=== PATIENT | male | born 1985 | race Two or more races ===

== ENCOUNTER 2016-08-10 13:49 | Inpatient (IN) | payer OTHER ==
[2016-08-10 15:51] VITALS: BMI 24.3
[2016-08-10] MEDS ORDERED: IBUPROFEN 400 MG TABLET (FP) PO PRN (17:34)
[2016-08-10] MEDS ORDERED: MAG HYDROX/AL HYDROX/SIMETH 30 ML UNIT-DOSE CUP PO PRN (17:34)
[2016-08-10] MEDS ORDERED: LOPERAMIDE HCL 2 MG CAPSULE PO PRN (17:34)
[2016-08-10] MEDS ORDERED: P-EPHED 60MG/TRIPROLIDI 2.5MG TABLET PO PRN (17:34)
[2016-08-10] MEDS ORDERED: guaiFENesin/D-METHORPHAN HB 10 ML UNIT-DOSE CUPS PO PRN (17:34)
[2016-08-10] MEDS ORDERED: chlordiazePOXIDE HCL 25 MG CAPSULE PO PRN (17:34)
[2016-08-10] MEDS ORDERED: NICOTINE POLACRILEX 2 MG GUM BUC PRN (17:34)
[2016-08-10] MEDS ORDERED: MAGNESIUM HYDROX 2400MG/30ML ORAL SUSPENSION 30 ML CUP PO PRN (17:34)
[2016-08-10] MEDS ORDERED: MENTHOL/PHENOL 1 EACH UD MM PRN (17:34)
[2016-08-10] MEDS ORDERED: MAGNESIUM CITRATE 300 ML BOTTLE PO PRN (17:34)
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
[2016-08-10] MEDS ORDERED: ALBUTEROL SO4 2.5/IPRATROPIUM 0.5 INH SOL 3 ML VIAL.NEB. NEB PRN (17:46)
[2016-08-10] MEDS ORDERED: ONDANSETRON *ODT* 4 MG TABLET SL PRN (18:35)
--- NOTE | 2016-08-10 20:42 | PN ---
S Progress Note Note: received pharmacy call tegretol 200 mg bid been ordered consider seizure management at home lab pending continue detox
[2016-08-10] MEDS: BUPRENORPHINE/NALOXONE 8 MG/2 MG FILM PACKET SL SCH (22:39)
[2016-08-10] MEDS: THIAMINE HCL 100 MG TABLET (FP) PO SCH (22:40)
[2016-08-10] MEDS: chlordiazePOXIDE HCL 25 MG CAPSULE PO SCH (22:40)
[2016-08-10] MEDS: RANITIDINE HCL 150 MG TABLET (FP) PO SCH (22:40)
[2016-08-10] MEDS ORDERED: ALBUTEROL SO4 6.7 GM HFA INHALER IH ONE (22:44)
[2016-08-10] MEDS: BUDESONIDE/FORMETEROL FUMARATE 80/4.5 mcg INHALER IH SCH (22:49)
[2016-08-10] MEDS: INSULIN SLIDING SCALE (NOVOLOG) 1 VIAL SQ SCH (22:58)
[2016-08-10 23:36] LABS: URINE APPEARANCE CLEAR; URINE BILIRUBIN NEGATIVE (NEGATIVE); URINE BLOOD NEGATIVE (NEGATIVE); URINE COLOR COLORLESS; URINE GLUCOSE (UA) NEGATIVE (NEGATIVE); URINE KETONE NEGATIVE (NEGATIVE); URINE LEUK ESTERASE NEGATIVE (NEGATIVE); URINE NITRITE NEGATIVE (NEGATIVE); URINE PROTEIN NEGATIVE (NEGATIVE); URINE UROBILINOGEN NEGATIVE E.U./dl (0.2-1.0)
[2016-08-10] MEDS: carBAMazepine 200 MG TABLET PO SCH (23:50)
[2016-08-11] MEDS: chlordiazePOXIDE HCL 25 MG CAPSULE PO SCH ×4 (05:23→22:30)
[2016-08-11] MEDS: BUPRENORPHINE/NALOXONE 8 MG/2 MG FILM PACKET SL SCH ×3 (05:24→22:28)
[2016-08-11] MEDS: INSULIN SLIDING SCALE (NOVOLOG) 1 VIAL SQ SCH ×4 (07:10→22:47)
[2016-08-11 09:13] LABS: MCH 32.2 pg (25.7-33.7); MCHC 33.4 g/dl (32.0-35.9); MEAN CELL VOLUME 96.7 fl (80-96); PLATELET COUNT 239 K/MM3 (134-434); RDW 15.2 % (11.9-15.9); WHITE BLOOD COUNT 7.4 K/mm3 (4.0-10.0)
[2016-08-11 09:30] LABS: ALBUMIN 3.3 g/dl (3.4-5.0); ALK PHOS 69 U/L (45-117); ANION GAP 8 (8-16); BILIRUBIN,TOTAL 0.2 mg/dL (0.2-1.0); CALCIUM 8.7 mg/dL (8.5-10.1); CO2 28 mmol/L (21-32); CREATININE 0.9 mg/dL (0.7-1.3); GLUCOSE,RANDOM 80 mg/dL (74-106); SGOT/AST 15 U/L (15-37); SGPT/ALT 20 U/L (12-78); TOT PROT 6.5 g/dl (6.4-8.2)
[2016-08-11 10:39] LABS: HIV 1 & 2 AB NEGATIVE; HIV 1 AGp24 NEGATIVE
--- NOTE | 2016-08-11 11:00 | PN ---
[facility] CIWA - CIWA Score Nausea/Vomitin Muscle Tremors: 3 Anxiety: 3 Agitation: 2 Paroxysmal Sweats: 1-Minimal Palms Moist Orientation: 0-Oriented Tacttile Disturbances: 1-Very Mild Itch/Numbness Auditory Disturbances: 1-Very Mild Visual Disturbances: 1-Very Mild Sensitivity Headache: 2-Mild CIWA-Ar Total Score: 17 BHS Progress Note (SOAP) Subjective: ALERT,IRRITABLE,ANXIOUS,INTERRUPTED SLEEP,TREMOR Objective: 08/11/16 10:55 Vital Signs Temperature 98.2 F 08/11/16 06:00 Pulse Rate 84 08/11/16 06:00 Respiratory Rate 18 08/11/16 06:00 Blood Pressure 102/57 08/11/16 06:00 O2 Sat by Pulse Oximetry (%) EKG INVERTED T IN V4 NO CHEST PAIN,NO SOB,NO DIZZINESS Laboratory Last Values WBC 7.4 K/mm3 (4.0-10.0) 08/11/16 07:45 RBC 4.17 M/mm3 (4.00-5.60) 08/11/16 07:45 Hgb 13.5 GM/dL (11.7-16.9) 08/11/16 07:45 Hct 40.3 % (35.4-49) 08/11/16 07:45 MCV 96.7 fl (80-96) H 08/11/16 07:45 MCHC 33.4 g/dl (32.0-35.9) 08/11/16 07:45 RDW 15.2 % (11.9-15.9) 08/11/16 07:45 Plt Count 239 K/MM3 (134-434) 08/11/16 07:45 MPV 9.0 fl (7.5-11.1) D 08/11/16 07:45 Sodium 141 mmol/L (136-145) 08/11/16 07:45 Potassium 4.1 mmol/L (3.5-5.1) 08/11/16 07:45 Chloride 105 mmol/L (98-107) 08/11/16 07:45 Carbon Dioxide 28 mmol/L (21-32) 08/11/16 07:45 Anion Gap 8 (8-16) 08/11/16 07:45 BUN 5 mg/dL (7-18) L D 08/11/16 07:45 Creatinine 0.9 mg/dL (0.7-1.3) 08/11/16 07:45 Creat Clearance w eGFR > 60 (>60) 08/11/16 07:45 POC Glucometer 89 UNITS (()) 08/11/16 05:23 Random Glucose 80 mg/dL (74-106) 08/11/16 07:45 Calcium 8.7 mg/dL (8.5-10.1) 08/11/16 07:45 Total Bilirubin 0.2 mg/dL (0.2-1.0) D 08/11/16 07:45 AST 15 U/L (15-37) 08/11/16 07:45 ALT 20 U/L (12-78) 08/11/16 07:45 Alkaline Phosphatase 69 U/L (45-117) 08/11/16 07:45 Total Protein 6.5 g/dl (6.4-8.2) 08/11/16 07:45 Albumin 3.3 g/dl (3.4-5.0) L 08/11/16 07:45 Urine Color Colorless 08/10/16 21:58 Urine Appearance Clear 08/10/16 21:58 Urine pH 6.0 (5.0-8.0) 08/10/16 21:58 Ur Specific [place] 1.002 (1.001-1.035) 08/10/16 21:58 Urine Protein Negative (NEGATIVE) 08/10/16 21:58 Urine Glucose (UA) Negative (NEGATIVE) 08/10/16 21:58 Urine Ketones Negative (NEGATIVE) 08/10/16 21:58 Urine Blood Negative (NEGATIVE) 08/10/16 21:58 Urine Nitrite Negative (NEGATIVE) 08/10/16 21:58 Urine Bilirubin Negative (NEGATIVE) 08/10/16 21:58 Urine Urobilinogen Negative E.U./dl (0.2-1.0) 08/10/16 21:58 Ur Leukocyte Esterase Negative (NEGATIVE) 08/10/16 21:58 Carbamazepine 6.8 ug/ml (4.0-12.0) 08/11/16 07:45 HIV 1&2 Antibody Screen Negative 08/11/16 07:45 HIV P24 Antigen Negative 08/11/16 07:45 08/11/16 10:58 Assessment: 08/11/16 10:57 08/11/16 10:58 WITHDRAWAL SYMPTOM Plan: CONTINUE DETOX,BGM IS 89,BGM MONITORING
--- NOTE | 2016-08-11 11:03 | PN ---
BHS Progress Note Note: EKG SINUS TACHYCARDIA 103/MIN,INVERTED T IN V4,NO CHEST PAIN,NO SOB,NO DIZZINESS , CONTINUE DETOX AND MONITORING
[2016-08-11] MEDS: PRENATAL VITAMINS W/ FOLIC ACID TABLET (FP) PO SCH ×2 (11:41→12:13)
[2016-08-11] MEDS: NICOTINE 21 MG/24 HOURS TOPICAL PATCH TD SCH (11:41)
[2016-08-11] MEDS: RANITIDINE HCL 150 MG TABLET (FP) PO SCH ×2 (12:02→22:28)
[2016-08-11] MEDS: NAPROXEN 500 MG TABLET (FP) PO PRN ×2 (12:02→22:28)
[2016-08-11] MEDS: carBAMazepine 200 MG TABLET PO SCH ×2 (12:02→22:28)
[2016-08-11] MEDS: ALBUTEROL SO4 6.7 GM HFA INHALER IH PRN (12:07)
--- NOTE | 2016-08-11 12:33 | CONSULT ---
[facility] Psychiatric Consult - Data Date of interview: 08/11/16 Admission source: [facility] Identifying data: Readmission to [facility] for this 30 y/o AA male seeking detox treatment on for alcohol and marijuana dependence.Patient is single without children,homeless,unemployed and supported on food stamps. Substance Abuse History: - Smoking Cessation. Smoking history: Current every day smoker. Have you smoked in the past 12 months: Yes. Aproximately how many cigarettes per day: 30. Cigars Per Day: 0. Hx Chewing Tobacco Use: No. Initiated information on smoking cessation: Yes. 'Breaking Loose' booklet given : 08/10/16. - Substance & Tx. History. Hx Alcohol Use: Yes. Hx Substance Use : Yes. Substance Use Type: Alcohol, Marijuana. Hx Substance Use Treatment: Yes. - Substances Abused. Alcohol. Route: Oral. Frequency: Daily. Amount used: 2 pints volka. Age of first use: 18. Date of Last Use: 08/10/16 Medical History: Significant for diabetes mellitus,GERD,bronchial asthma, seizure disorder (on carbamazepine) and hypertension.Noted history of craniotomy (head trauma in 2008). Psychiatric History: Patient reports a history of multiple psychiatric hospitalizations.Mr Stafford is known to [facility] and [facility].He states that he is diagnosed with " bipolar disorder and schizophrenia ".Medications :prozac and ambien,as per self- report.Patient does not recall the doses (request made to continue these medications during this hospital course).No OPD care for several weeks.Remote history of suicide attempt (age 21). Physical/Sexual Abuse/Trauma History: Patient denies. Mental Status Exam - Mental Status Exam Alert and Oriented to: Time, Place, Person Cognitive Function: Good Patient Appearance: Unkempt, Disheveled Mood: Nervous, Withdrawn Affect: Constricted Patient Behavior: Sedated, Fatigued, Cooperative Speech Pattern: Delayed Voice Loudness: Moderately Soft/Quiet Thought Process: Goal Oriented Thought Disorder: Not Present Hallucinations: Denies Suicidal Ideation: Denies Homicidal Ideation: Denies Insight/Judgement: Poor Sleep: Fair Appetite: Good Muscle strength/Tone: Normal Psychiatric Findings - Problem List ([place] 1, 2,3) (1) Alcohol dependence with uncomplicated withdrawal Current Visit: Yes Status: Acute (2) Nicotine dependence Current Visit: Yes Status: Acute Qualifiers: Nicotine product type: cigarettes Substance use status: in withdrawal Qualified Code(s): F17.213 - Nicotine dependence, cigarettes, with withdrawal (3) Cannabis dependence Current Visit: Yes Status: Acute (4) Drug-induced mood disorder Current Visit: Yes Status: Acute (5) Asthma Current Visit: Yes Status: Chronic Qualifiers: Asthma severity: mild intermittent Asthma complication type: with status asthmaticus Qualified Code(s): J45.22 - Mild intermittent asthma with status asthmaticus (6) Diabetes mellitus type II, controlled Current Visit: Yes Status: Chronic Qualifiers: Diabetes mellitus complication status: without complication Diabetes mellitus fci insulin use: with meterman use Qualified Code(s): E11.9 - Type 2 diabetes mellitus without complications Comment: patient dose not know the name of the insulin and oral medication (7) GERD (gastroesophageal reflux disease) Current Visit: Yes Status: Chronic Qualifiers: Esophagitis presence: without esophagitis Qualified Code(s): K21.9 - Gastro-esophageal reflux disease without esophagitis (8) Hypertension Current Visit: Yes Status: Chronic Qualifiers: Hypertension type: essential hypertension Qualified Code(s): I10 - Essential (primary) hypertension Comment: unknown medication (9) Seizure Current Visit: Yes Status: Chronic Comment: tegretol level pending - Initial Treatment Plan Initial Treatment Plan: Psychoeducation.Detoxification.Medications :prozac 20 mg po daily + zolpidem 5 mg po hs prn.Side effects/benefits discussed with the patient.He agrees with this careplan.Seizures precautions.Pharmacy claims are reviewed (script for prozac on 05/2016 @ [facility]).
[2016-08-11] MEDS: BUDESONIDE/FORMETEROL FUMARATE 80/4.5 mcg INHALER IH SCH ×2 (14:31→22:27)
[2016-08-11] MEDS: THIAMINE HCL 100 MG TABLET (FP) PO SCH (22:28)
[2016-08-11] MEDS: ZOLPIDEM TARTRATE 5 MG TABLET PO PRN (22:28)
[2016-08-12] MEDS: ACETAMINOPHEN 325 MG TABLET (FP) PO PRN ×2 (02:17→22:31)
[2016-08-12] MEDS: diphenhydrAMINE HCL 50 MG CAPSULE PO PRN (02:17)
[2016-08-12] MEDS: chlordiazePOXIDE HCL 25 MG CAPSULE PO SCH ×3 (05:50→17:55)
[2016-08-12] MEDS: BUPRENORPHINE/NALOXONE 8 MG/2 MG FILM PACKET SL SCH ×3 (06:45→22:27)
[2016-08-12] MEDS: INSULIN SLIDING SCALE (NOVOLOG) 1 VIAL SQ SCH ×4 (07:42→22:26)
[2016-08-12] MEDS: NAPROXEN 500 MG TABLET (FP) PO PRN ×2 (10:41→22:33)
[2016-08-12] MEDS: FLUoxetine HCL 20 MG CAPSULE (FP) PO SCH (10:41)
[2016-08-12] MEDS: RANITIDINE HCL 150 MG TABLET (FP) PO SCH ×2 (10:41→22:29)
[2016-08-12] MEDS: PRENATAL VITAMINS W/ FOLIC ACID TABLET (FP) PO SCH (10:41)
[2016-08-12] MEDS ORDERED: BUPRENORPHINE/NALOXONE 8 MG/2 MG FILM PACKET SL ONE (11:00)
--- NOTE | 2016-08-12 11:50 | PN ---
S CIWA - CIWA Score Nausea/Vomitin Muscle Tremors: 3 Anxiety: 3 Agitation: 2 Paroxysmal Sweats: 1-Minimal Palms Moist Orientation: 0-Oriented Tacttile Disturbances: 1-Very Mild Itch/Numbness Auditory Disturbances: 1-Very Mild Visual Disturbances: 1-Very Mild Sensitivity Headache: 2-Mild CIWA-Ar Total Score: 17 BHS Progress Note (SOAP) Subjective: ALERT,IRRITABLE,ANXIOUS,INTERRUPTED SLEEP,TREMOR Objective: 08/12/16 11:48 Vital Signs Temperature 98.6 F 08/12/16 10:01 Pulse Rate 89 08/12/16 10:01 Respiratory Rate 16 08/12/16 10:01 Blood Pressure 131/85 08/12/16 10:01 O2 Sat by Pulse Oximetry (%) Laboratory Last Values WBC 7.4 K/mm3 (4.0-10.0) 08/11/16 07:45 RBC 4.17 M/mm3 (4.00-5.60) 08/11/16 07:45 Hgb 13.5 GM/dL (11.7-16.9) 08/11/16 07:45 Hct 40.3 % (35.4-49) 08/11/16 07:45 MCV 96.7 fl (80-96) H 08/11/16 07:45 MCHC 33.4 g/dl (32.0-35.9) 08/11/16 07:45 RDW 15.2 % (11.9-15.9) 08/11/16 07:45 Plt Count 239 K/MM3 (134-434) 08/11/16 07:45 MPV 9.0 fl (7.5-11.1) D 08/11/16 07:45 Sodium 141 mmol/L (136-145) 08/11/16 07:45 Potassium 4.1 mmol/L (3.5-5.1) 08/11/16 07:45 Chloride 105 mmol/L (98-107) 08/11/16 07:45 Carbon Dioxide 28 mmol/L (21-32) 08/11/16 07:45 Anion Gap 8 (8-16) 08/11/16 07:45 BUN 5 mg/dL (7-18) L D 08/11/16 07:45 Creatinine 0.9 mg/dL (0.7-1.3) 08/11/16 07:45 Creat Clearance w eGFR > 60 (>60) 08/11/16 07:45 POC Glucometer 99 UNITS (()) 08/12/16 05:59 Random Glucose 80 mg/dL (74-106) 08/11/16 07:45 Calcium 8.7 mg/dL (8.5-10.1) 08/11/16 07:45 Total Bilirubin 0.2 mg/dL (0.2-1.0) D 08/11/16 07:45 AST 15 U/L (15-37) 08/11/16 07:45 ALT 20 U/L (12-78) 08/11/16 07:45 Alkaline Phosphatase 69 U/L (45-117) 08/11/16 07:45 Total Protein 6.5 g/dl (6.4-8.2) 08/11/16 07:45 Albumin 3.3 g/dl (3.4-5.0) L 08/11/16 07:45 Urine Color Colorless 08/10/16 21:58 Urine Appearance Clear 08/10/16 21:58 Urine pH 6.0 (5.0-8.0) 08/10/16 21:58 Ur Specific [place] 1.002 (1.001-1.035) 08/10/16 21:58 Urine Protein Negative (NEGATIVE) 08/10/16 21:58 Urine Glucose (UA) Negative (NEGATIVE) 08/10/16 21:58 Urine Ketones Negative (NEGATIVE) 08/10/16 21:58 Urine Blood Negative (NEGATIVE) 08/10/16 21:58 Urine Nitrite Negative (NEGATIVE) 08/10/16 21:58 Urine Bilirubin Negative (NEGATIVE) 08/10/16 21:58 Urine Urobilinogen Negative E.U./dl (0.2-1.0) 08/10/16 21:58 Ur Leukocyte Esterase Negative (NEGATIVE) 08/10/16 21:58 Carbamazepine 6.8 ug/ml (4.0-12.0) 08/11/16 07:45 RPR Titer Nonreactive (NONREACTIVE) 08/11/16 07:45 HIV 1&2 Antibody Screen Negative 08/11/16 07:45 HIV P24 Antigen Negative 08/11/16 07:45 Assessment: 08/12/16 11:49 WITHDRAWAL SYMPTOM Plan: CONTINUE DETOX
[2016-08-12] MEDS: NICOTINE 21 MG/24 HOURS TOPICAL PATCH TD SCH (11:53)
[2016-08-12] MEDS: carBAMazepine 200 MG TABLET PO SCH ×2 (11:54→22:29)
[2016-08-12] MEDS: BUDESONIDE/FORMETEROL FUMARATE 80/4.5 mcg INHALER IH SCH ×2 (11:54→22:29)
[2016-08-12] MEDS: THIAMINE HCL 100 MG TABLET (FP) PO SCH (22:29)
[2016-08-12] MEDS: ZOLPIDEM TARTRATE 5 MG TABLET PO PRN (22:33)
[2016-08-12] MEDS: chlordiazePOXIDE 5 MG CAPSULE PO SCH (23:34)
[2016-08-13] MEDS: diphenhydrAMINE HCL 50 MG CAPSULE PO PRN (02:32)
[2016-08-13] MEDS: BUPRENORPHINE/NALOXONE 8 MG/2 MG FILM PACKET SL SCH ×3 (05:48→22:45)
[2016-08-13] MEDS: chlordiazePOXIDE 5 MG CAPSULE PO SCH ×3 (05:50→17:55)
[2016-08-13] MEDS: INSULIN SLIDING SCALE (NOVOLOG) 1 VIAL SQ SCH ×4 (07:41→21:48)
[2016-08-13] MEDS: BUDESONIDE/FORMETEROL FUMARATE 80/4.5 mcg INHALER IH SCH ×2 (10:00→22:48)
[2016-08-13] MEDS: carBAMazepine 200 MG TABLET PO SCH ×2 (10:50→22:47)
[2016-08-13] MEDS: PRENATAL VITAMINS W/ FOLIC ACID TABLET (FP) PO SCH (10:50)
[2016-08-13] MEDS: NAPROXEN 500 MG TABLET (FP) PO PRN (10:50)
[2016-08-13] MEDS: RANITIDINE HCL 150 MG TABLET (FP) PO SCH ×2 (10:50→22:47)
[2016-08-13] MEDS: FLUoxetine HCL 20 MG CAPSULE (FP) PO SCH (10:50)
[2016-08-13] MEDS: NICOTINE 21 MG/24 HOURS TOPICAL PATCH TD SCH (10:51)
--- NOTE | 2016-08-13 11:13 | PN ---
S Progress Note (SOAP) Subjective: ALERT,IRRITABLE,ANXIOUS,INTERRUPTED SLEEP Objective: 08/13/16 11:11 Vital Signs Temperature 98.4 F 08/13/16 10:39 Pulse Rate 86 08/13/16 10:39 Respiratory Rate 18 08/13/16 10:39 Blood Pressure 135/71 08/13/16 10:39 O2 Sat by Pulse Oximetry (%) Assessment: 08/13/16 11:12 WITHDRAWAL SYMPTOM Plan: CONTINUE DETOX,DISCHARGE IN AM
[2016-08-13] MEDS: ALBUTEROL SO4 6.7 GM HFA INHALER IH PRN (17:50)
[2016-08-13] MEDS: ZOLPIDEM TARTRATE 5 MG TABLET PO PRN (22:47)
[2016-08-13] MEDS: THIAMINE HCL 100 MG TABLET (FP) PO SCH (22:48)
[2016-08-13] MEDS: chlordiazePOXIDE HCL 10 MG CAPSULE PO SCH (23:38)
[2016-08-14] MEDS: BUPRENORPHINE/NALOXONE 8 MG/2 MG FILM PACKET SL SCH (05:29)
[2016-08-14] MEDS: chlordiazePOXIDE HCL 10 MG CAPSULE PO SCH (06:06)
[2016-08-14] MEDS: INSULIN SLIDING SCALE (NOVOLOG) 1 VIAL SQ SCH (06:07)
[2016-08-14 06:41] VITALS: BP 128/67; PULSE 88; TEMP 99
--- NOTE | 2016-08-14 08:13 | PN ---
S Progress Note (SOAP) Subjective: ALERT,NO COMPLAINT Objective: 08/14/16 08:12 Vital Signs Temperature 99.0 F 08/14/16 06:00 Pulse Rate 88 08/14/16 06:00 Respiratory Rate 18 08/14/16 06:00 Blood Pressure 128/67 08/14/16 06:00 O2 Sat by Pulse Oximetry (%) 08/14/16 08:12 08/14/16 08:12 BGM 114 Assessment: 08/14/16 08:12 DETOX COMPLETED,NO WITHDRAWAL SYMPTOM Plan: DISCHARGE TODAY,FOLLOW UP WITH AFTER CARE PROGRAM ARRANGEMENT
[2016-08-14] MEDS ORDERED: ALBUTEROL SO4 6.7 GM HFA INHALER IH PRN (08:55)
--- NOTE | 2016-08-14 10:34 | DS ---
[facility] Detox Discharge Summary Admission Date: 08/10/16 Discharge Date: 08/14/16 - History Present History: Alcohol Dependence, Cannabis Dependence Additional Comments: FOLLOW UP WITH AFTER [facility] PROGRAM ARRANGEMENT AND PMD FOR MEDICAL PROBLEM Pertinent Past History: HYPERTENSION SEIZURE GERD ASTHMA - Physical Exam Results Vital Signs: Vital Signs Temperature 99.0 F 08/14/16 06:00 Pulse Rate 88 08/14/16 06:00 Respiratory Rate 18 08/14/16 06:00 Blood Pressure 128/67 08/14/16 06:00 O2 Sat by Pulse Oximetry (%) Pertinent Admission Physical Exam Findings: WITHDRAWAL SYMPTOM - Treatment Hospital Course: Detox Protocol Followed, Detoxed Safely, Responded well, Discharged Condition Good - Medication Discharge Medications: Ambulatory Orders Ibuprofen [Motrin -] 600 mg PO Q6H PRN 07/21/14 Buprenorphine/Naloxone [Suboxone 8Mg/2Mg Sl Film -] 1 each SL TID 08/10/16 Fluoxetine HCl [Prozac -] 20 mg PO DAILY #30 capsule 08/11/16 Albuterol Sulfate Inhaler - [Ventolin HFA Inhaler -] 2 puff IH Q4H PRN #1 inhaler 08/14/16 Carbamazepine [Tegretol -] 200 mg PO BID #60 tablet 08/14/16 Naproxen [Naprosyn -] 500 mg PO BID PRN #20 tablet 08/14/16 Ranitidine [Zantac -] 150 mg PO BID #60 tablet 08/14/16 - AMA Did Patient Leave Against Medical Advice: No
--- NOTE | 2016-08-14 14:10 | EKG ---
Test Reason : Blood Pressure : / mmHG Vent. Rate : 103 BPM Atrial Rate : 103 BPM P-R Int : 130 ms QRS Dur : 094 ms QT Int : 330 ms P-R-T Axes : 069 079 034 degrees QTc Int : [address] ELEVATION, CONSIDER EARLY REPOLARIZATION, PERICARDITIS, OR INJURY NONSPECIFIC T WAVE ABNORMALITY INFERIOR LEADS ABNORMAL ECG NO PREVIOUS ECGS AVAILABLE Confirmed by CHRISTAL CORONADO MD ([id number]) on 08/14/2016 2:10:00 PM Referred By: Confirmed By:CHRISTAL CORONADO MD
== END 2016-08-14 09:26 | disposition home or self-care (01) | DRG 774 ==
LOC: YASAS 13:49 → Y6N 20:19
PROVIDERS: ADMIT Internal Medicine Addiction Medicine; ATTEND Internal Medicine Addiction Medicine
PROC: HZ2ZZZZ Detoxification Services for Substance Abuse Treatment (ICD-10-PCS; principal; 2016-08-14)
DX: F10.230 Alcohol dependence with withdrawal, uncomplicated (principal); F14.20 Cocaine dependence, uncomplicated; F17.210 Nicotine dependence, cigarettes, uncomplicated; F19.24 Other psychoactive substance dependence with psychoactive substance-induced mood disorder; I10 Essential (primary) hypertension; E11.9 Type 2 diabetes mellitus without complications; Z79.4 Long term (current) use of insulin; Z79.84 Long term (current) use of oral hypoglycemic drugs; J45.22 Mild intermittent asthma with status asthmaticus; G40.909 Epilepsy, unspecified, not intractable, without status epilepticus; K21.9 Gastro-esophageal reflux disease without esophagitis
CPT/HCPCS: 36415; 80053; 80156; 81003; 85027; 86593; 87389; 93005; 93010

== ENCOUNTER 2016-09-02 10:54 | Inpatient (IN) | payer OTHER ==
[2016-09-02 11:52] VITALS: BMI 24.3
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
[2016-09-02] MEDS ORDERED: hydrOXYzine PAMOATE 50 MG CAPSULE (FP) PO PRN (12:20)
[2016-09-02] MEDS ORDERED: chlordiazePOXIDE HCL 25 MG CAPSULE PO PRN (12:20)
[2016-09-02] MEDS ORDERED: MAGNESIUM CITRATE 300 ML BOTTLE PO PRN (12:20)
[2016-09-02] MEDS ORDERED: MAGNESIUM HYDROX 2400MG/30ML ORAL SUSPENSION 30 ML CUP PO PRN (12:20)
[2016-09-02] MEDS ORDERED: LOPERAMIDE HCL 2 MG CAPSULE PO PRN (12:20)
[2016-09-02] MEDS ORDERED: MENTHOL/PHENOL 1 EACH UD MM PRN (12:20)
[2016-09-02] MEDS ORDERED: guaiFENesin/D-METHORPHAN HB 10 ML UNIT-DOSE CUPS PO PRN (12:20)
[2016-09-02] MEDS ORDERED: P-EPHED 60MG/TRIPROLIDI 2.5MG TABLET PO PRN (12:20)
[2016-09-02] MEDS ORDERED: NICOTINE POLACRILEX 4 MG GUM BUC PRN (12:20)
[2016-09-02] MEDS ORDERED: ACETAMINOPHEN 325 MG TABLET (FP) PO PRN (12:20)
[2016-09-02] MEDS ORDERED: chlordiazePOXIDE HCL 25 MG CAPSULE PO ONE (14:00)
[2016-09-02] MEDS: BUPRENORPHINE/NALOXONE 8 MG/2 MG FILM PACKET SL SCH ×2 (14:34→22:22)
[2016-09-02] MEDS: NAPROXEN 500 MG TABLET (FP) PO PRN (14:34)
[2016-09-02] MEDS: carBAMazepine 200 MG TABLET PO SCH ×2 (14:42→22:22)
[2016-09-02] MEDS: chlordiazePOXIDE HCL 25 MG CAPSULE PO SCH ×2 (17:16→22:22)
[2016-09-02 19:17] LABS: URINE APPEARANCE CLEAR; URINE BILIRUBIN NEGATIVE (NEGATIVE); URINE BLOOD 2+ (NEGATIVE); URINE COLOR LTYELLOW; URINE GLUCOSE (UA) NEGATIVE (NEGATIVE); URINE KETONE NEGATIVE (NEGATIVE); URINE LEUK ESTERASE NEGATIVE (NEGATIVE); URINE NITRITE NEGATIVE (NEGATIVE); URINE PROTEIN NEGATIVE (NEGATIVE); URINE UROBILINOGEN NEGATIVE E.U./dl (0.2-1.0)
[2016-09-02 19:52] LABS: URINE WBC 0-2 /hpf (3-5)
--- NOTE | 2016-09-02 20:58 | EKG ---
Test Reason : Blood Pressure : / mmHG Vent. Rate : 081 BPM Atrial Rate : 081 BPM P-R Int : 138 ms QRS Dur : 094 ms QT Int : 380 ms P-R-T Axes : -05 -22 011 degrees QTc Int : 441 ms NORMAL SINUS RHYTHM VOLTAGE CRITERIA FOR LEFT VENTRICULAR HYPERTROPHY ACUTE PERICARDITIS ABNORMAL ECG WHEN COMPARED WITH ECG OF 10-AUG-2016 21:42, QUESTIONABLE CHANGE IN QRS AXIS ST NO LONGER ELEVATED IN INFERIOR LEADS ST ELEVATION NOW PRESENT IN LATERAL LEADS NONSPECIFIC T WAVE ABNORMALITY, IMPROVED IN LATERAL LEADS Confirmed by CRISTOFER GOYAL MD ([id number]) on 09/02/2016 8:57:25 PM Referred By: Confirmed By:CRISTOFER GOYAL MD
[2016-09-02] MEDS: RANITIDINE HCL 150 MG TABLET (FP) PO SCH (22:22)
[2016-09-02] MEDS: diphenhydrAMINE HCL 50 MG CAPSULE PO PRN (22:22)
[2016-09-02] MEDS: THIAMINE HCL 100 MG TABLET (FP) PO SCH (22:22)
[2016-09-03] MEDS: BUPRENORPHINE/NALOXONE 8 MG/2 MG FILM PACKET SL SCH ×3 (06:22→22:34)
[2016-09-03] MEDS: chlordiazePOXIDE HCL 25 MG CAPSULE PO SCH ×4 (06:22→22:34)
[2016-09-03 10:22] LABS: MCH 32.1 pg (25.7-33.7); MCHC 33.2 g/dl (32.0-35.9); MEAN CELL VOLUME 96.7 fl (80-96); MEAN PLT VOLUME 9.2 fl (7.5-11.1); PLATELET COUNT 254 K/MM3 (134-434); RDW 15.3 % (11.9-15.9); WHITE BLOOD COUNT 5.7 K/mm3 (4.0-10.0)
[2016-09-03] MEDS: RANITIDINE HCL 150 MG TABLET (FP) PO SCH ×2 (10:29→22:34)
[2016-09-03] MEDS: NAPROXEN 500 MG TABLET (FP) PO PRN ×2 (10:29→22:38)
[2016-09-03] MEDS: PRENATAL VITAMINS W/ FOLIC ACID TABLET (FP) PO SCH (10:29)
[2016-09-03] MEDS: carBAMazepine 200 MG TABLET PO SCH ×2 (10:29→22:34)
[2016-09-03 10:33] LABS: ALBUMIN 3.7 g/dl (3.4-5.0); ANION GAP 6 (8-16); CALCIUM 8.8 mg/dL (8.5-10.1); CO2 32 mmol/L (21-32); GLUCOSE,RANDOM 91 mg/dL (74-106)
[2016-09-03 10:36] LABS: ALK PHOS 65 U/L (45-117); CREATININE 0.9 mg/dL (0.7-1.3); SGOT/AST 33 U/L (15-37); SGPT/ALT 40 U/L (12-78); TOT PROT 7.1 g/dl (6.4-8.2)
[2016-09-03] MEDS: NICOTINE 21 MG/24 HOURS TOPICAL PATCH TD SCH (11:56)
--- NOTE | 2016-09-03 15:10 | PN ---
S CIWA - CIWA Score Nausea/Vomitin Muscle Tremors: 4-Moderate,w/Arms Extend Anxiety: 4-Mod. Anxious/Guarded Agitation: 4-Moderately Restless Paroxysmal Sweats: No Perspiration Orientation: 0-Oriented Tacttile Disturbances: 1-Very Mild Itch/Numbness Auditory Disturbances: 0-None Visual Disturbances: 0-None Headache: 1-Very Mild CIWA-Ar Total Score: 17 BHS Progress Note (SOAP) Subjective: Nausea, tremor, chills, sweating, interrupted sleep Objective: 09/03/16 15:05 Last Vital Signs Temp Pulse Resp BP Pulse Ox 97.1 F L 80 20 139/83 09/03/16 13:20 09/03/16 13:20 09/03/16 13:20 09/03/16 13:20 Laboratory Tests 09/02/16 09/02/16 09/03/16 13:16 18:00 08:00 WBC 5.7 RBC 4.30 Hgb 13.8 Hct 41.5 MCV 96.7 H MCHC 33.2 RDW 15.3 Plt Count 254 MPV 9.2 Sodium Potassium Chloride Carbon Dioxide Anion Gap BUN Creatinine Creat Clearance w eGFR POC Glucometer 185 Random Glucose Calcium Total Bilirubin AST ALT Alkaline Phosphatase Total Protein Albumin Urine Color Ltyellow Urine Appearance Clear Urine pH 5.0 Ur Specific [place] 1.017 Urine Protein Negative Urine Glucose (UA) Negative Urine Ketones Negative Urine Blood 2+ H Urine Nitrite Negative Urine Bilirubin Negative Urine Urobilinogen Negative Ur Leukocyte Esterase Negative Urine RBC 6-9 Urine WBC 0-2 Ur Epithelial Cells occ Carbamazepine RPR Titer 09/03/16 09/03/16 09/03/16 08:00 08:00 08:00 WBC RBC Hgb Hct MCV MCHC RDW Plt Count MPV Sodium 136 Potassium 4.2 Chloride 98 Carbon Dioxide 32 Anion Gap 6 L BUN 7 D Creatinine 0.9 Creat Clearance w eGFR > 60 POC Glucometer Random Glucose 91 Calcium 8.8 Total Bilirubin 1.0 D AST 33 D ALT 40 D Alkaline Phosphatase 65 Total Protein 7.1 Albumin 3.7 Urine Color Urine Appearance Urine pH Ur Specific [place] Urine Protein Urine Glucose (UA) Urine Ketones Urine Blood Urine Nitrite Urine Bilirubin Urine Urobilinogen Ur Leukocyte Esterase Urine RBC Urine WBC Ur Epithelial Cells Carbamazepine 4.8 RPR Titer Nonreactive Labs noted: UA: 2+ blood, RBC 6-9 Assessment: 09/03/16 15:09 Withdrawal symptoms Noted with microscopic hematuria Plan: Continue detox Microscopic hematuria: encouraged to drink more water, repeat UA
[2016-09-03] MEDS ORDERED: ALBUTEROL SO4 6.7 GM HFA INHALER IH ONE (17:53)
[2016-09-03] MEDS: ALBUTEROL SO4 6.7 GM HFA INHALER IH PRN (17:54)
[2016-09-03] MEDS: THIAMINE HCL 100 MG TABLET (FP) PO SCH (22:33)
[2016-09-03] MEDS: diphenhydrAMINE HCL 50 MG CAPSULE PO PRN (22:38)
[2016-09-04] MEDS: BUPRENORPHINE/NALOXONE 8 MG/2 MG FILM PACKET SL SCH ×3 (05:46→22:35)
[2016-09-04] MEDS: chlordiazePOXIDE HCL 25 MG CAPSULE PO SCH ×2 (05:46→10:18)
[2016-09-04] MEDS: ALBUTEROL SO4 6.7 GM HFA INHALER IH PRN (06:00)
[2016-09-04 10:09] LABS: URINE APPEARANCE CLEAR; URINE BILIRUBIN NEGATIVE (NEGATIVE); URINE BLOOD NEGATIVE (NEGATIVE); URINE COLOR STRAW; URINE GLUCOSE (UA) NEGATIVE (NEGATIVE); URINE KETONE NEGATIVE (NEGATIVE); URINE NITRITE NEGATIVE (NEGATIVE); URINE PROTEIN NEGATIVE (NEGATIVE); URINE UROBILINOGEN NEGATIVE E.U./dl (0.2-1.0)
[2016-09-04] MEDS: RANITIDINE HCL 150 MG TABLET (FP) PO SCH ×2 (10:18→22:36)
[2016-09-04] MEDS: carBAMazepine 200 MG TABLET PO SCH ×2 (10:18→22:36)
[2016-09-04] MEDS: NICOTINE 21 MG/24 HOURS TOPICAL PATCH TD SCH (10:18)
[2016-09-04] MEDS: PRENATAL VITAMINS W/ FOLIC ACID TABLET (FP) PO SCH (10:18)
[2016-09-04 10:50] LABS: URINE LEUK ESTERASE 1+ (NEGATIVE)
[2016-09-04 10:56] LABS: URINE MUCUS RARE; URINE RBC 1 /hpf (0-3); URINE WBC 2 /hpf (3-5)
--- NOTE | 2016-09-04 11:43 | PN ---
[facility] CIWA - CIWA Score Nausea/Vomitin-Mild Nausea/No Vomiting Muscle Tremors: 4-Moderate,w/Arms Extend Anxiety: 4-Mod. Anxious/Guarded Agitation: 3 Paroxysmal Sweats: 3 Orientation: 0-Oriented Tacttile Disturbances: 0-None Auditory Disturbances: 0-None Visual Disturbances: 0-None Headache: 0-None Present CIWA-Ar Total Score: 15 S Progress Note (SOAP) Subjective: Anxiety,tremors,sweating,interrupted sleep,restless Objective: 09/04/16 11:42 Vital Signs - 8 hr 09/04/16 09/04/16 06:06 09:45 Temperature 96.2 F L 97.1 F L Pulse Rate 79 85 Respiratory 18 18 Rate Blood Pressure 139/90 140/82 Laboratory Tests 09/02/16 09/02/16 09/03/16 13:16 18:00 08:00 WBC 5.7 RBC 4.30 Hgb 13.8 Hct 41.5 MCV 96.7 H MCHC 33.2 RDW 15.3 Plt Count 254 MPV 9.2 Sodium Potassium Chloride Carbon Dioxide Anion Gap BUN Creatinine Creat Clearance w eGFR POC Glucometer 185 Random Glucose Calcium Total Bilirubin AST ALT Alkaline Phosphatase Total Protein Albumin Urine Color Ltyellow Urine Appearance Clear Urine pH 5.0 Ur Specific [place] 1.017 Urine Protein Negative Urine Glucose (UA) Negative Urine Ketones Negative Urine Blood 2+ H Urine Nitrite Negative Urine Bilirubin Negative Urine Urobilinogen Negative Ur Leukocyte Esterase Negative Urine RBC 6-9 Urine WBC 0-2 Ur Epithelial Cells occ Urine Mucus Carbamazepine RPR Titer 09/03/16 09/03/16 09/03/16 08:00 08:00 08:00 WBC RBC Hgb Hct MCV MCHC RDW Plt Count MPV Sodium 136 Potassium 4.2 Chloride 98 Carbon Dioxide 32 Anion Gap 6 L BUN 7 D Creatinine 0.9 Creat Clearance w eGFR > 60 POC Glucometer Random Glucose 91 Calcium 8.8 Total Bilirubin 1.0 D AST 33 D ALT 40 D Alkaline Phosphatase 65 Total Protein 7.1 Albumin 3.7 Urine Color Urine Appearance Urine pH Ur Specific [place] Urine Protein Urine Glucose (UA) Urine Ketones Urine Blood Urine Nitrite Urine Bilirubin Urine Urobilinogen Ur Leukocyte Esterase Urine RBC Urine WBC Ur Epithelial Cells Urine Mucus Carbamazepine 4.8 RPR Titer Nonreactive 09/04/16 07:50 WBC RBC Hgb Hct MCV MCHC RDW Plt Count MPV Sodium Potassium Chloride Carbon Dioxide Anion Gap BUN Creatinine Creat Clearance w eGFR POC Glucometer Random Glucose Calcium Total Bilirubin AST ALT Alkaline Phosphatase Total Protein Albumin Urine Color Straw Urine Appearance Clear Urine pH 6.0 Ur Specific [place] 1.008 Urine Protein Negative Urine Glucose (UA) Negative Urine Ketones Negative Urine Blood Negative Urine Nitrite Negative Urine Bilirubin Negative Urine Urobilinogen Negative Ur Leukocyte Esterase 1+ H Urine RBC 1 Urine WBC 2 Ur Epithelial Cells Urine Mucus Rare Carbamazepine RPR Titer labs noted Assessment: 09/04/16 11:43 Withdrawal sx. Plan: Continue detox
--- NOTE | 2016-09-04 13:24 | CONSULT ---
[facility] Psychiatric Consult - Data Date of interview: 09/04/16 Admission source: [facility] Identifying data: Another admission to [facility] for this 30 y/o AA male seeking detox treatment on for alcohol and marijuana dependence.Patient is single without children (in this interview,the patient presents himself as ),homeless,unemployed and supported on food stamps. Substance Abuse History: - Smoking Cessation. Smoking history: Current every day smoker. Have you smoked in the past 12 months: Yes. Aproximately how many cigarettes per day: 306. Cigars Per Day: 0. Hx Chewing Tobacco Use: No. Initiated information on smoking cessation: Yes. 'Breaking Loose' booklet given : 09/02/16 (give on floor). - Substance & Tx. History. Hx Alcohol Use: Yes. Hx Substance Use: Yes. Substance Use Type: Alcohol, Marijuana. Hx Substance Use Treatment: Yes (detox,rehab). - Substances Abused. Alcohol. Route: Oral. Frequency: Daily. Amount used: 2 pints vodka, six pack beer. Age of first use: 18. Date of Last Use: 09/02/16. Marijuana/Hashish. Route: Smoking. Frequency: Daily. Amount used: a pound a week. Age of first use: 16. Date of Last Use: 09/02/16. Patient confirms this pattern of substance abuse in this interview. Medical History: Diabetes mellitus,GERD,bronchial asthma,seizure disorder (on carbamazepine) and hypertension.Noted history of craniotomy (head trauma in 2008 ). Psychiatric History: Patient reports a history of multiple psychiatric hospitalizations.Mr Stafford is known to [facility] and [facility].He states that he is diagnosed with " bipolar disorder and schizophrenia ".Medications :prozac and ambien,as per self- report.Patient does not recall the doses (request made to continue these medications during this hospital course).No OPD care for several weeks.Remote history of suicide attempt (age 21). Physical/Sexual Abuse/Trauma History: No reported history of sexual abuse. Additional Comment: Urine Drug Screen Results: THC-Marijuana.Noted. Mental Status Exam - Mental Status Exam Alert and Oriented to: Time, Place, Person Cognitive Function: Good Patient Appearance: Well Groomed Mood: Nervous, Withdrawn, Anxious, Irritable Affect: Mood Congruent Patient Behavior: Fatigued, Guarded, Impulsive, Cooperative (superficially) Speech Pattern: Clear Voice Loudness: Normal Thought Process: Goal Oriented Thought Disorder: Not Present Hallucinations: Denies Suicidal Ideation: Denies Homicidal Ideation: Denies Insight/Judgement: Poor Sleep: Poorly, Difficulty falling asleep Appetite: Good Muscle strength/Tone: Normal Gait/Station: Normal Psychiatric Findings - Problem List ([place] 1, 2,3) (1) Alcohol dependence with uncomplicated withdrawal Current Visit: Yes Status: Acute (2) Cannabis dependence Current Visit: Yes Status: Chronic (3) Nicotine dependence Current Visit: Yes Status: Chronic Qualifiers: Nicotine product type: cigarettes Substance use status: in withdrawal Qualified Code(s): F17.213 - Nicotine dependence, cigarettes, with withdrawal (4) Drug-induced mood disorder Current Visit: Yes Status: Acute (5) Bipolar disorder Current Visit: Yes Status: Chronic (6) Asthma Current Visit: Yes Status: Chronic Qualifiers: Asthma severity: mild intermittent Asthma complication type: with status asthmaticus Qualified Code(s): J45.22 - Mild intermittent asthma with status asthmaticus (7) GERD (gastroesophageal reflux disease) Current Visit: Yes Status: Chronic Qualifiers: Esophagitis presence: esophagitis presence not specified Qualified Code(s): K21.9 - Gastro-esophageal reflux disease without esophagitis (8) Insomnia Current Visit: Yes Status: Chronic - Initial Treatment Plan Initial Treatment Plan: Psychoeducation.Detoxification.Medications searched via pharmacy claims.Noted filled scripts for trazodone 50 mg po hs + prozac 20 mg po daily + risperdal 2mg po bid on 08/26/15 @ [facility].Orders resumed.Side effects/benefits discussed with the patient.Made aware of the risk of priapism (trazodone) and advised to stop taking that drug/seek immediate medical attention if painful/prolonged erection.Patient agrees with this careplan.Observation.
[2016-09-04] MEDS: FLUoxetine HCL 20 MG CAPSULE (FP) PO SCH (14:41)
[2016-09-04] MEDS: NAPROXEN 500 MG TABLET (FP) PO PRN (17:13)
[2016-09-04] MEDS: chlordiazePOXIDE 5 MG CAPSULE PO SCH ×2 (17:13→22:36)
[2016-09-04] MEDS ORDERED: traZODone HCL 50 MG TABLET (FP) PO SCH (22:00)
[2016-09-04] MEDS: THIAMINE HCL 100 MG TABLET (FP) PO SCH (22:35)
[2016-09-04] MEDS: risperiDONE 2 MG TABLET PO SCH (22:36)
[2016-09-04] MEDS: diphenhydrAMINE HCL 50 MG CAPSULE PO PRN (22:41)
[2016-09-05] MEDS: chlordiazePOXIDE 5 MG CAPSULE PO SCH (05:43)
[2016-09-05] MEDS: BUPRENORPHINE/NALOXONE 8 MG/2 MG FILM PACKET SL SCH ×3 (05:44→22:37)
--- NOTE | 2016-09-05 10:20 | PN ---
BHS Progress Note (SOAP) Subjective: Sweating,interrupted sleep,restless Objective: 09/05/16 10:19 Vital Signs - 8 hr 09/05/16 09/05/16 09/05/16 03:27 06:07 09:49 Temperature 98.5 F 98 F Pulse Rate 123 H 106 H Respiratory 18 18 20 Rate Blood Pressure 136/80 129/60 Laboratory Tests 09/02/16 09/02/16 09/03/16 13:16 18:00 08:00 WBC 5.7 RBC 4.30 Hgb 13.8 Hct 41.5 MCV 96.7 H MCHC 33.2 RDW 15.3 Plt Count 254 MPV 9.2 Sodium Potassium Chloride Carbon Dioxide Anion Gap BUN Creatinine Creat Clearance w eGFR POC Glucometer 185 Random Glucose Calcium Total Bilirubin AST ALT Alkaline Phosphatase Total Protein Albumin Urine Color Ltyellow Urine Appearance Clear Urine pH 5.0 Ur Specific [place] 1.017 Urine Protein Negative Urine Glucose (UA) Negative Urine Ketones Negative Urine Blood 2+ H Urine Nitrite Negative Urine Bilirubin Negative Urine Urobilinogen Negative Ur Leukocyte Esterase Negative Urine RBC 6-9 Urine WBC 0-2 Ur Epithelial Cells occ Urine Mucus Carbamazepine RPR Titer 09/03/16 09/03/16 09/03/16 08:00 08:00 08:00 WBC RBC Hgb Hct MCV MCHC RDW Plt Count MPV Sodium 136 Potassium 4.2 Chloride 98 Carbon Dioxide 32 Anion Gap 6 L BUN 7 D Creatinine 0.9 Creat Clearance w eGFR > 60 POC Glucometer Random Glucose 91 Calcium 8.8 Total Bilirubin 1.0 D AST 33 D ALT 40 D Alkaline Phosphatase 65 Total Protein 7.1 Albumin 3.7 Urine Color Urine Appearance Urine pH Ur Specific [place] Urine Protein Urine Glucose (UA) Urine Ketones Urine Blood Urine Nitrite Urine Bilirubin Urine Urobilinogen Ur Leukocyte Esterase Urine RBC Urine WBC Ur Epithelial Cells Urine Mucus Carbamazepine 4.8 RPR Titer Nonreactive 09/04/16 07:50 WBC RBC Hgb Hct MCV MCHC RDW Plt Count MPV Sodium Potassium Chloride Carbon Dioxide Anion Gap BUN Creatinine Creat Clearance w eGFR POC Glucometer Random Glucose Calcium Total Bilirubin AST ALT Alkaline Phosphatase Total Protein Albumin Urine Color Straw Urine Appearance Clear Urine pH 6.0 Ur Specific [place] 1.008 Urine Protein Negative Urine Glucose (UA) Negative Urine Ketones Negative Urine Blood Negative Urine Nitrite Negative Urine Bilirubin Negative Urine Urobilinogen Negative Ur Leukocyte Esterase 1+ H Urine RBC 1 Urine WBC 2 Ur Epithelial Cells Urine Mucus Rare Carbamazepine RPR Titer labs noted Assessment: 09/05/16 10:20 Withdrawal sx. Plan: Continue detox
[2016-09-05] MEDS: carBAMazepine 200 MG TABLET PO SCH ×3 (10:41→22:38)
[2016-09-05] MEDS: FLUoxetine HCL 20 MG CAPSULE (FP) PO SCH (10:41)
[2016-09-05] MEDS: RANITIDINE HCL 150 MG TABLET (FP) PO SCH ×2 (10:41→22:38)
[2016-09-05] MEDS: NICOTINE 21 MG/24 HOURS TOPICAL PATCH TD SCH (10:41)
[2016-09-05] MEDS: risperiDONE 2 MG TABLET PO SCH ×2 (10:41→22:37)
[2016-09-05] MEDS: PRENATAL VITAMINS W/ FOLIC ACID TABLET (FP) PO SCH (10:41)
[2016-09-05] MEDS: chlordiazePOXIDE HCL 10 MG CAPSULE PO SCH ×2 (17:12→22:39)
[2016-09-05] MEDS: THIAMINE HCL 100 MG TABLET (FP) PO SCH (22:37)
[2016-09-05] MEDS: NAPROXEN 500 MG TABLET (FP) PO PRN (22:38)
--- NOTE | 2016-09-05 23:19 | PN ---
S Progress Note Note: received nurse call patient refuses librium 10 mg, less withdrawal sx continue detox
[2016-09-06] MEDS: chlordiazePOXIDE HCL 10 MG CAPSULE PO SCH ×2 (05:57→10:13)
[2016-09-06] MEDS: BUPRENORPHINE/NALOXONE 8 MG/2 MG FILM PACKET SL SCH ×2 (06:02→13:31)
[2016-09-06 09:20] VITALS: BP 154/99; PULSE 90; TEMP 96
[2016-09-06] MEDS: risperiDONE 2 MG TABLET PO SCH (10:13)
[2016-09-06] MEDS: PRENATAL VITAMINS W/ FOLIC ACID TABLET (FP) PO SCH (10:13)
[2016-09-06] MEDS: FLUoxetine HCL 20 MG CAPSULE (FP) PO SCH (10:13)
[2016-09-06] MEDS: carBAMazepine 200 MG TABLET PO SCH (10:13)
[2016-09-06] MEDS: RANITIDINE HCL 150 MG TABLET (FP) PO SCH (10:13)
[2016-09-06] MEDS: NICOTINE 21 MG/24 HOURS TOPICAL PATCH TD SCH (10:14)
--- NOTE | 2016-09-06 14:06 | DS ---
[facility] Detox Discharge Summary Admission Date: 09/02/16 Discharge Date: 09/06/16 - History Present History: Alcohol Dependence, Cocaine Dependence Pertinent Past History: Asthma GERD Seizure - Physical Exam Results Vital Signs: Vital Signs Temperature 96 F L 09/06/16 09:19 Pulse Rate 90 09/06/16 09:19 Respiratory Rate 18 09/06/16 09:19 Blood Pressure 154/99 09/06/16 09:19 O2 Sat by Pulse Oximetry (%) Pertinent Admission Physical Exam Findings: Withdrawal sx. Laboratory Last Values WBC 5.7 K/mm3 (4.0-10.0) 09/03/16 08:00 RBC 4.30 M/mm3 (4.00-5.60) 09/03/16 08:00 Hgb 13.8 GM/dL (11.7-16.9) 09/03/16 08:00 Hct 41.5 % (35.4-49) 09/03/16 08:00 MCV 96.7 fl (80-96) H 09/03/16 08:00 MCHC 33.2 g/dl (32.0-35.9) 09/03/16 08:00 RDW 15.3 % (11.9-15.9) 09/03/16 08:00 Plt Count 254 K/MM3 (134-434) 09/03/16 08:00 MPV 9.2 fl (7.5-11.1) 09/03/16 08:00 Sodium 136 mmol/L (136-145) 09/03/16 08:00 Potassium 4.2 mmol/L (3.5-5.1) 09/03/16 08:00 Chloride 98 mmol/L (98-107) 09/03/16 08:00 Carbon Dioxide 32 mmol/L (21-32) 09/03/16 08:00 Anion Gap 6 (8-16) L 09/03/16 08:00 BUN 7 mg/dL (7-18) D 09/03/16 08:00 Creatinine 0.9 mg/dL (0.7-1.3) 09/03/16 08:00 Creat Clearance w eGFR > 60 (>60) 09/03/16 08:00 POC Glucometer 185 UNITS (()) 09/02/16 13:16 Random Glucose 91 mg/dL (74-106) 09/03/16 08:00 Calcium 8.8 mg/dL (8.5-10.1) 09/03/16 08:00 Total Bilirubin 1.0 mg/dL (0.2-1.0) D 09/03/16 08:00 AST 33 U/L (15-37) D 09/03/16 08:00 ALT 40 U/L (12-78) D 09/03/16 08:00 Alkaline Phosphatase 65 U/L (45-117) 09/03/16 08:00 Total Protein 7.1 g/dl (6.4-8.2) 09/03/16 08:00 Albumin 3.7 g/dl (3.4-5.0) 09/03/16 08:00 Urine Color Straw 09/04/16 07:50 Urine Appearance Clear 09/04/16 07:50 Urine pH 6.0 (5.0-8.0) 09/04/16 07:50 Ur Specific [place] 1.008 (1.001-1.035) 09/04/16 07:50 Urine Protein Negative (NEGATIVE) 09/04/16 07:50 Urine Glucose (UA) Negative (NEGATIVE) 09/04/16 07:50 Urine Ketones Negative (NEGATIVE) 09/04/16 07:50 Urine Blood Negative (NEGATIVE) 09/04/16 07:50 Urine Nitrite Negative (NEGATIVE) 09/04/16 07:50 Urine Bilirubin Negative (NEGATIVE) 09/04/16 07:50 Urine Urobilinogen Negative E.U./dl (0.2-1.0) 09/04/16 07:50 Ur Leukocyte Esterase 1+ (NEGATIVE) H 09/04/16 07:50 Urine RBC 1 /hpf (0-3) 09/04/16 07:50 Urine WBC 2 /hpf (3-5) 09/04/16 07:50 Ur Epithelial Cells occ /hpf (FEW) 09/02/16 18:00 Urine Mucus Rare 09/04/16 07:50 Carbamazepine 4.8 ug/ml (4.0-12.0) 09/03/16 08:00 RPR Titer Nonreactive (NONREACTIVE) 09/03/16 08:00 labs noted - Treatment Hospital Course: Detox Protocol Followed, Detoxed Safely, Responded well, Discharged Condition Good, Rehab Referral Accepted - Medication Discharge Medications: Ambulatory Orders Buprenorphine/Naloxone [Suboxone 8Mg/2Mg Sl Film -] 1 each SL TID 08/10/16 Fluoxetine HCl [Prozac -] 20 mg PO DAILY #30 capsule 08/11/16 Albuterol Sulfate Inhaler - [Ventolin HFA Inhaler -] 2 puff IH Q4H PRN #1 inhaler 08/14/16 Carbamazepine [Tegretol -] 200 mg PO BID #60 tablet 08/14/16 Naproxen [Naprosyn -] 500 mg PO BID PRN #20 tablet 08/14/16 Ranitidine [Zantac -] 150 mg PO BID #60 tablet 08/14/16 Risperidone [Risperdal] 2 mg PO BID 09/02/16 Trazodone HCl [Desyrel -] 50 mg PO HS 09/02/16 Fluoxetine HCl [Prozac -] 20 mg PO DAILY #30 capsule 09/04/16 Risperidone [Risperdal] 2 mg PO BID #30 tablet 09/04/16 Trazodone HCl [Desyrel -] 50 mg PO HS #20 tablet 09/04/16 - Diagnosis (1) Alcohol dependence with uncomplicated withdrawal Status: Acute (2) Cocaine dependence Status: Acute Qualifiers: Substance use status: uncomplicated Qualified Code(s): F14.20 - Cocaine dependence, uncomplicated (3) Asthma Status: Chronic Qualifiers: Asthma severity: mild intermittent Asthma complication type: with status asthmaticus Qualified Code(s): J45.22 - Mild intermittent asthma with status asthmaticus (4) GERD (gastroesophageal reflux disease) Status: Chronic Qualifiers: Esophagitis presence: esophagitis presence not specified Qualified Code(s): K21.9 - Gastro-esophageal reflux disease without esophagitis (5) Nicotine dependence Status: Chronic Qualifiers: Nicotine product type: cigarettes Substance use status: in withdrawal Qualified Code(s): F17.213 - Nicotine dependence, cigarettes, with withdrawal (6) Seizure Status: Chronic (7) Drug-induced mood disorder Status: Acute (8) Bipolar disorder Status: Chronic - AMA Did Patient Leave Against Medical Advice: No
== END 2016-09-06 13:32 | DRG 774 ==
LOC: YASAS 10:54 → Y3N 13:48
PROVIDERS: ADMIT Internal Medicine; ATTEND Internal Medicine
PROC: HZ2ZZZZ Detoxification Services for Substance Abuse Treatment (ICD-10-PCS; principal; 2016-09-06)
DX: F10.230 Alcohol dependence with withdrawal, uncomplicated (principal); F14.20 Cocaine dependence, uncomplicated; F12.20 Cannabis dependence, uncomplicated; F17.210 Nicotine dependence, cigarettes, uncomplicated; F19.24 Other psychoactive substance dependence with psychoactive substance-induced mood disorder; F31.9 Bipolar disorder, unspecified; G47.00 Insomnia, unspecified; G40.909 Epilepsy, unspecified, not intractable, without status epilepticus; K21.9 Gastro-esophageal reflux disease without esophagitis
CPT/HCPCS: 36415; 80053; 80156; 81003; 81015; 85027; 86593; 93005; 93010

== ENCOUNTER 2016-09-06 14:00 | Inpatient (IN) | payer OTHER ==
[2016-09-06] MEDS ORDERED: guaiFENesin/D-METHORPHAN HB 10 ML UNIT-DOSE CUPS PO PRN (14:13)
[2016-09-06] MEDS ORDERED: IBUPROFEN 400 MG TABLET (FP) PO PRN (14:13)
[2016-09-06] MEDS ORDERED: P-EPHED 60MG/TRIPROLIDI 2.5MG TABLET PO PRN (14:13)
[2016-09-06] MEDS ORDERED: MAGNESIUM HYDROX 2400MG/30ML ORAL SUSPENSION 30 ML CUP PO PRN (14:13)
[2016-09-06] MEDS ORDERED: MAGNESIUM CITRATE 300 ML BOTTLE PO PRN (14:13)
[2016-09-06] MEDS ORDERED: LOPERAMIDE HCL 2 MG CAPSULE PO PRN (14:13)
[2016-09-06] MEDS ORDERED: MENTHOL/PHENOL 1 EACH UD MM PRN (14:13)
[2016-09-06] MEDS ORDERED: ACETAMINOPHEN 325 MG TABLET (FP) PO PRN (14:13)
[2016-09-06] MEDS ORDERED: diphenhydrAMINE HCL 50 MG CAPSULE PO PRN (14:13)
[2016-09-06] MEDS ORDERED: MAG HYDROX/AL HYDROX/SIMETH 30 ML UNIT-DOSE CUP PO PRN (14:13)
--- NOTE | 2016-09-06 16:25 | HP ---
[facility] Rehab Assess/Revision - Admission History Admitted to Rehab from: [facility] Date of Admission to Rehab: 09/06/16 - Vital signs Vital Signs: Vital Signs Period Temp Pulse Resp BP Sys/Albright Pulse Ox Last 24 Hr 97.6 F 105 20 149/80 - Findings Detox History & Physical reviewed: Yes Concur with findings: Yes Comments/Additional Findings: transferred from detox to rehab admission as per protocol
[2016-09-06] MEDS: THIAMINE HCL 100 MG TABLET (FP) PO SCH (21:43)
[2016-09-06] MEDS: RANITIDINE HCL 150 MG TABLET (FP) PO SCH (21:43)
[2016-09-06] MEDS: BUPRENORPHINE/NALOXONE 8 MG/2 MG FILM PACKET SL SCH (21:43)
[2016-09-06] MEDS: carBAMazepine 200 MG TABLET PO SCH (21:43)
[2016-09-07] MEDS: RANITIDINE HCL 150 MG TABLET (FP) PO SCH ×2 (10:40→21:41)
--- NOTE | 2016-09-07 10:48 | HP ---
Psychiatrist Admission - Data Date of interview: 09/07/16 Admission source: 3N Identifying data: This is the first 5N inpatient rehabilitation admission for this 30 year old black male who is is single without children, currently homeless and unemployed and supported on food stamps. Medical History: Diabetes mellitus,GERD,bronchial asthma,seizure disorder (on carbamazepine) and hypertension, history of craniotomy (head trauma in 2008). Psychiatric History: Patient is poor historian, reports that he does not feel well and needs rest, he reports carries a diagnosis of depression, bipolar and schizophrenia, non-compliant with medications, visiting ER for medications refills, last visited [facility] ER 2 weeks ago to get his scripts, states he is on Prozac 20 mg daily, Trazodone 50 mg hs and Risperdal 2 mg po bid, seen by while in detox and continued his medications. Physical/Sexual Abuse/Trauma History: Patient denies history of sexual, physical and verbal abuse. Vital Signs: Vital Signs - 24 hr 09/06/16 09/07/16 09/07/16 14:24 00:34 03:30 Temperature 97.6 F Pulse Rate 105 H Respiratory 20 16 16 Rate Blood Pressure 149/80 09/07/16 07:00 Temperature 97.7 F Pulse Rate 73 Respiratory 16 Rate Blood Pressure 111/80 Allergies/Adverse Reactions: Allergies Allergy/AdvReac Type Severity Reaction Status Date / Time shellfish derived Allergy Severe Swelling Verified 09/02/16 13:33 No Known Drug Allergies Allergy Verified 09/04/16 17:05 NKDA Allergy Uncoded 09/02/16 13:33 Date of last physical exam: 09/02/16 Concur with the findings of this exam: Yes - Substance Abuse/Tx History Hx Alcohol Use: Yes (2 pints volka. ) Hx Substance Use: Yes Substance Use Type: Marijuana Hx Substance Use Treatment: Yes - Admission Criteria Previous failed treatment: Yes Poor recovery environment: Yes Comorbidities: Yes Lacks judgement: Yes Mental Status Exam - Mental Status Exam Alert and Oriented to: Place, Person Cognitive Function: Impaired Patient Appearance: Unkempt Mood: Irritable Affect: Mood Congruent Patient Behavior: Appropriate, Cooperative Speech Pattern: Clear Voice Loudness: Normal Thought Process: Thought Blocking Hallucinations: Denies Suicidal Ideation: Denies Homicidal Ideation: Denies Insight/Judgement: Poor Sleep: Poorly Appetite: Fair Muscle strength/Tone: Normal Gait/Station: Normal Psychiatric Findings - Problem List ([place] 1, 2,3) (1) Alcohol dependence Current Visit: No Status: Acute (2) Bipolar disorder Current Visit: No Status: Chronic (3) Cannabis dependence Current Visit: No Status: Chronic - Initial Treatment Plan Initial Treatment Plan: will conitnue his current medications, monitor progress as needed.
[2016-09-07] MEDS: carBAMazepine 200 MG TABLET PO SCH ×2 (10:50→21:41)
[2016-09-07] MEDS: PRENATAL VITAMINS W/ FOLIC ACID TABLET (FP) PO SCH (10:50)
[2016-09-07] MEDS: BUPRENORPHINE/NALOXONE 8 MG/2 MG FILM PACKET SL SCH ×2 (10:50→21:41)
[2016-09-07] MEDS ORDERED: diphenhydrAMINE HCL 25 MG CAPSULE (FP) PO PRN (13:47)
[2016-09-07] MEDS: risperiDONE 2 MG TABLET PO SCH (21:41)
[2016-09-07] MEDS: THIAMINE HCL 100 MG TABLET (FP) PO SCH (21:41)
[2016-09-07] MEDS: traZODone HCL 50 MG TABLET (FP) PO SCH (21:41)
[2016-09-08] MEDS: FLUoxetine HCL 20 MG CAPSULE (FP) PO SCH (10:18)
[2016-09-08] MEDS: RANITIDINE HCL 150 MG TABLET (FP) PO SCH ×2 (10:18→21:31)
[2016-09-08] MEDS: carBAMazepine 200 MG TABLET PO SCH ×2 (10:18→21:31)
[2016-09-08] MEDS: BUPRENORPHINE/NALOXONE 8 MG/2 MG FILM PACKET SL SCH ×2 (10:18→21:31)
[2016-09-08] MEDS: PRENATAL VITAMINS W/ FOLIC ACID TABLET (FP) PO SCH (10:18)
[2016-09-08] MEDS: risperiDONE 2 MG TABLET PO SCH ×2 (10:18→21:31)
[2016-09-08] MEDS: traZODone HCL 50 MG TABLET (FP) PO SCH (21:31)
[2016-09-08] MEDS: THIAMINE HCL 100 MG TABLET (FP) PO SCH (21:31)
[2016-09-09] MEDS: RANITIDINE HCL 150 MG TABLET (FP) PO SCH ×2 (10:22→21:42)
[2016-09-09] MEDS: risperiDONE 2 MG TABLET PO SCH ×2 (10:22→21:42)
[2016-09-09] MEDS: PRENATAL VITAMINS W/ FOLIC ACID TABLET (FP) PO SCH (10:22)
[2016-09-09] MEDS: carBAMazepine 200 MG TABLET PO SCH ×2 (10:22→21:42)
[2016-09-09] MEDS: FLUoxetine HCL 20 MG CAPSULE (FP) PO SCH (10:22)
[2016-09-09] MEDS: BUPRENORPHINE/NALOXONE 8 MG/2 MG FILM PACKET SL SCH ×2 (10:23→21:42)
[2016-09-09] MEDS: THIAMINE HCL 100 MG TABLET (FP) PO SCH (21:42)
[2016-09-09] MEDS: traZODone HCL 50 MG TABLET (FP) PO SCH (21:42)
[2016-09-10] MEDS: diphenhydrAMINE HCL 25 MG CAPSULE (FP) PO PRN ×2 (00:14→21:41)
[2016-09-10] MEDS: carBAMazepine 200 MG TABLET PO SCH ×2 (10:15→21:39)
[2016-09-10] MEDS: PRENATAL VITAMINS W/ FOLIC ACID TABLET (FP) PO SCH (10:15)
[2016-09-10] MEDS: risperiDONE 2 MG TABLET PO SCH ×2 (10:15→21:40)
[2016-09-10] MEDS: BUPRENORPHINE/NALOXONE 8 MG/2 MG FILM PACKET SL SCH ×2 (10:15→21:40)
[2016-09-10] MEDS: RANITIDINE HCL 150 MG TABLET (FP) PO SCH ×2 (10:15→21:40)
[2016-09-10] MEDS: FLUoxetine HCL 20 MG CAPSULE (FP) PO SCH (10:15)
[2016-09-10] MEDS: THIAMINE HCL 100 MG TABLET (FP) PO SCH (21:39)
[2016-09-10] MEDS: traZODone HCL 50 MG TABLET (FP) PO SCH (21:39)
[2016-09-11] MEDS: risperiDONE 2 MG TABLET PO SCH ×2 (10:07→21:51)
[2016-09-11] MEDS: FLUoxetine HCL 20 MG CAPSULE (FP) PO SCH (10:07)
[2016-09-11] MEDS: RANITIDINE HCL 150 MG TABLET (FP) PO SCH ×2 (10:07→21:51)
[2016-09-11] MEDS: carBAMazepine 200 MG TABLET PO SCH ×2 (10:07→21:51)
[2016-09-11] MEDS: PRENATAL VITAMINS W/ FOLIC ACID TABLET (FP) PO SCH (10:07)
[2016-09-11] MEDS: BUPRENORPHINE/NALOXONE 8 MG/2 MG FILM PACKET SL SCH ×2 (10:08→21:51)
--- NOTE | 2016-09-11 14:17 | PN ---
S Progress Note Note: patient c/o insomnia, will increase Taazodone 100 mg po hs, continue to monitor progress.
[2016-09-11] MEDS: THIAMINE HCL 100 MG TABLET (FP) PO SCH (21:51)
[2016-09-11] MEDS: traZODone HCL 100 MG TABLET (FP) PO SCH (21:51)
[2016-09-11] MEDS: diphenhydrAMINE HCL 25 MG CAPSULE (FP) PO PRN (21:53)
[2016-09-12] MEDS: risperiDONE 2 MG TABLET PO SCH ×2 (10:16→21:59)
[2016-09-12] MEDS: carBAMazepine 200 MG TABLET PO SCH ×2 (10:16→21:59)
[2016-09-12] MEDS: FLUoxetine HCL 20 MG CAPSULE (FP) PO SCH (10:16)
[2016-09-12] MEDS: BUPRENORPHINE/NALOXONE 8 MG/2 MG FILM PACKET SL SCH ×2 (10:16→21:59)
[2016-09-12] MEDS: PRENATAL VITAMINS W/ FOLIC ACID TABLET (FP) PO SCH (10:16)
[2016-09-12] MEDS: RANITIDINE HCL 150 MG TABLET (FP) PO SCH ×2 (10:16→21:59)
[2016-09-12] MEDS: NAPROXEN 500 MG TABLET (FP) PO PRN (15:31)
[2016-09-12] MEDS: THIAMINE HCL 100 MG TABLET (FP) PO SCH (21:59)
[2016-09-12] MEDS: traZODone HCL 100 MG TABLET (FP) PO SCH (21:59)
[2016-09-12] MEDS: diphenhydrAMINE HCL 25 MG CAPSULE (FP) PO PRN (22:00)
[2016-09-13] MEDS: PRENATAL VITAMINS W/ FOLIC ACID TABLET (FP) PO SCH (10:24)
[2016-09-13] MEDS: carBAMazepine 200 MG TABLET PO SCH ×2 (10:24→21:39)
[2016-09-13] MEDS: RANITIDINE HCL 150 MG TABLET (FP) PO SCH ×2 (10:24→21:39)
[2016-09-13] MEDS: FLUoxetine HCL 20 MG CAPSULE (FP) PO SCH (10:25)
[2016-09-13] MEDS: BUPRENORPHINE/NALOXONE 8 MG/2 MG FILM PACKET SL SCH ×2 (10:25→21:40)
[2016-09-13] MEDS: NAPROXEN 500 MG TABLET (FP) PO PRN (10:25)
[2016-09-13] MEDS: risperiDONE 2 MG TABLET PO SCH ×2 (10:27→21:39)
[2016-09-13] MEDS: traZODone HCL 100 MG TABLET (FP) PO SCH (21:39)
[2016-09-13] MEDS: diphenhydrAMINE HCL 25 MG CAPSULE (FP) PO PRN (21:39)
[2016-09-13] MEDS: THIAMINE HCL 100 MG TABLET (FP) PO SCH (21:40)
[2016-09-14] MEDS: FLUoxetine HCL 20 MG CAPSULE (FP) PO SCH (10:23)
[2016-09-14] MEDS: RANITIDINE HCL 150 MG TABLET (FP) PO SCH ×2 (10:23→21:33)
[2016-09-14] MEDS: risperiDONE 2 MG TABLET PO SCH ×2 (10:23→21:32)
[2016-09-14] MEDS: carBAMazepine 200 MG TABLET PO SCH ×2 (10:23→21:33)
[2016-09-14] MEDS: PRENATAL VITAMINS W/ FOLIC ACID TABLET (FP) PO SCH (10:23)
[2016-09-14] MEDS: BUPRENORPHINE/NALOXONE 8 MG/2 MG FILM PACKET SL SCH ×2 (10:24→21:32)
[2016-09-14] MEDS ORDERED: NICOTINE POLACRILEX 2 MG GUM BUC PRN (10:31)
[2016-09-14] MEDS: NICOTINE 21 MG/24 HOURS TOPICAL PATCH TD SCH (10:40)
--- NOTE | 2016-09-14 16:04 | PN ---
S Progress Note Note: patient complained of chest pain,non specific,no respiratory distress, bp 12/77,p74,r 20 ekg no acute change treatment vistaril 50 mgs po q 6 hrs prn for anxiety close observation
[2016-09-14] MEDS: diphenhydrAMINE HCL 25 MG CAPSULE (FP) PO PRN (21:32)
[2016-09-14] MEDS: ALBUTEROL SO4 6.7 GM HFA INHALER IH PRN (21:32)
[2016-09-14] MEDS: THIAMINE HCL 100 MG TABLET (FP) PO SCH (21:32)
[2016-09-14] MEDS: traZODone HCL 100 MG TABLET (FP) PO SCH (21:32)
[2016-09-15] MEDS: carBAMazepine 200 MG TABLET PO SCH ×2 (10:27→21:34)
[2016-09-15] MEDS: PRENATAL VITAMINS W/ FOLIC ACID TABLET (FP) PO SCH (10:27)
[2016-09-15] MEDS: RANITIDINE HCL 150 MG TABLET (FP) PO SCH ×2 (10:27→21:34)
[2016-09-15] MEDS: BUPRENORPHINE/NALOXONE 8 MG/2 MG FILM PACKET SL SCH ×2 (10:27→21:34)
[2016-09-15] MEDS: NICOTINE 21 MG/24 HOURS TOPICAL PATCH TD SCH (10:27)
[2016-09-15] MEDS: FLUoxetine HCL 20 MG CAPSULE (FP) PO SCH (10:27)
[2016-09-15] MEDS: hydrOXYzine PAMOATE 50 MG CAPSULE (FP) PO PRN ×2 (10:40→21:36)
[2016-09-15] MEDS: risperiDONE 2 MG TABLET PO SCH ×2 (10:40→21:34)
[2016-09-15] MEDS: ALBUTEROL SO4 6.7 GM HFA INHALER IH PRN (10:45)
--- NOTE | 2016-09-15 13:06 | EKG ---
Test Reason : Blood Pressure : / mmHG Vent. Rate : 089 BPM Atrial Rate : 089 BPM P-R Int : 148 ms QRS Dur : 094 ms QT Int : 362 ms P-R-T Axes : 056 071 037 degrees QTc Int : 440 ms NORMAL SINUS RHYTHM POSSIBLE LEFT ATRIAL ENLARGEMENT EARLY REPOLARIZATION INCOMPLETE RBBB Confirmed by LISSA FREEMAN MD ([id number]) on 09/15/2016 1:06:35 PM Referred By: Argentina Holbrook Confirmed By:LISSA FREEMAN MD
[2016-09-15] MEDS: THIAMINE HCL 100 MG TABLET (FP) PO SCH (21:34)
[2016-09-15] MEDS: traZODone HCL 100 MG TABLET (FP) PO SCH (21:34)
[2016-09-16] MEDS: BUPRENORPHINE/NALOXONE 8 MG/2 MG FILM PACKET SL SCH ×2 (10:13→21:48)
[2016-09-16] MEDS: PRENATAL VITAMINS W/ FOLIC ACID TABLET (FP) PO SCH (10:13)
[2016-09-16] MEDS: risperiDONE 2 MG TABLET PO SCH ×2 (10:13→21:47)
[2016-09-16] MEDS: RANITIDINE HCL 150 MG TABLET (FP) PO SCH ×2 (10:13→21:47)
[2016-09-16] MEDS: NICOTINE 21 MG/24 HOURS TOPICAL PATCH TD SCH (10:13)
[2016-09-16] MEDS: carBAMazepine 200 MG TABLET PO SCH ×2 (10:13→21:47)
[2016-09-16] MEDS: FLUoxetine HCL 20 MG CAPSULE (FP) PO SCH (10:13)
[2016-09-16] MEDS: NAPROXEN 500 MG TABLET (FP) PO PRN ×2 (10:16→21:48)
[2016-09-16] MEDS: traZODone HCL 100 MG TABLET (FP) PO SCH (21:47)
[2016-09-16] MEDS: THIAMINE HCL 100 MG TABLET (FP) PO SCH (21:48)
[2016-09-17] MEDS: hydrOXYzine PAMOATE 50 MG CAPSULE (FP) PO PRN (10:11)
[2016-09-17] MEDS: carBAMazepine 200 MG TABLET PO SCH ×2 (10:11→21:48)
[2016-09-17] MEDS: NAPROXEN 500 MG TABLET (FP) PO PRN ×2 (10:11→21:50)
[2016-09-17] MEDS: BUPRENORPHINE/NALOXONE 8 MG/2 MG FILM PACKET SL SCH ×2 (10:11→21:48)
[2016-09-17] MEDS: PRENATAL VITAMINS W/ FOLIC ACID TABLET (FP) PO SCH (10:12)
[2016-09-17] MEDS: risperiDONE 2 MG TABLET PO SCH ×2 (10:12→21:48)
[2016-09-17] MEDS: FLUoxetine HCL 20 MG CAPSULE (FP) PO SCH (10:12)
[2016-09-17] MEDS: RANITIDINE HCL 150 MG TABLET (FP) PO SCH ×2 (10:12→21:48)
[2016-09-17] MEDS: NICOTINE 21 MG/24 HOURS TOPICAL PATCH TD SCH (10:14)
[2016-09-17] MEDS: THIAMINE HCL 100 MG TABLET (FP) PO SCH (21:48)
[2016-09-17] MEDS: traZODone HCL 100 MG TABLET (FP) PO SCH (21:48)
[2016-09-17] MEDS: ALBUTEROL SO4 6.7 GM HFA INHALER IH PRN (21:51)
[2016-09-18] MEDS: NAPROXEN 500 MG TABLET (FP) PO PRN ×2 (09:57→21:20)
[2016-09-18] MEDS: PRENATAL VITAMINS W/ FOLIC ACID TABLET (FP) PO SCH (09:57)
[2016-09-18] MEDS: NICOTINE 21 MG/24 HOURS TOPICAL PATCH TD SCH (09:58)
[2016-09-18] MEDS: risperiDONE 2 MG TABLET PO SCH ×2 (09:58→21:19)
[2016-09-18] MEDS: FLUoxetine HCL 20 MG CAPSULE (FP) PO SCH (09:58)
[2016-09-18] MEDS: BUPRENORPHINE/NALOXONE 8 MG/2 MG FILM PACKET SL SCH ×2 (09:59→21:19)
[2016-09-18] MEDS: RANITIDINE HCL 150 MG TABLET (FP) PO SCH ×2 (09:59→21:20)
[2016-09-18] MEDS: carBAMazepine 200 MG TABLET PO SCH ×2 (09:59→21:20)
[2016-09-18] MEDS ORDERED: AMMONIUM LACTATE 12% LOTION 225 GM BOTTLE TP PRN (12:25)
[2016-09-18] MEDS: traZODone HCL 100 MG TABLET (FP) PO SCH (21:19)
[2016-09-18] MEDS: THIAMINE HCL 100 MG TABLET (FP) PO SCH (21:20)
[2016-09-19] MEDS: carBAMazepine 200 MG TABLET PO SCH ×2 (09:52→21:30)
[2016-09-19] MEDS: risperiDONE 2 MG TABLET PO SCH ×2 (09:52→21:30)
[2016-09-19] MEDS: RANITIDINE HCL 150 MG TABLET (FP) PO SCH ×2 (09:52→21:30)
[2016-09-19] MEDS: BUPRENORPHINE/NALOXONE 8 MG/2 MG FILM PACKET SL SCH ×2 (09:52→21:30)
[2016-09-19] MEDS: PRENATAL VITAMINS W/ FOLIC ACID TABLET (FP) PO SCH (09:52)
[2016-09-19] MEDS: FLUoxetine HCL 20 MG CAPSULE (FP) PO SCH (09:52)
[2016-09-19] MEDS: NAPROXEN 500 MG TABLET (FP) PO PRN (09:54)
[2016-09-19] MEDS: NICOTINE 21 MG/24 HOURS TOPICAL PATCH TD SCH (10:01)
[2016-09-19] MEDS: THIAMINE HCL 100 MG TABLET (FP) PO SCH (21:30)
[2016-09-19] MEDS: traZODone HCL 100 MG TABLET (FP) PO SCH (21:30)
[2016-09-20] MEDS: carBAMazepine 200 MG TABLET PO SCH ×2 (09:29→21:45)
[2016-09-20] MEDS: RANITIDINE HCL 150 MG TABLET (FP) PO SCH ×2 (09:29→21:45)
[2016-09-20] MEDS: risperiDONE 2 MG TABLET PO SCH ×2 (09:29→21:45)
[2016-09-20] MEDS: PRENATAL VITAMINS W/ FOLIC ACID TABLET (FP) PO SCH (09:29)
[2016-09-20] MEDS: hydrOXYzine PAMOATE 50 MG CAPSULE (FP) PO PRN (09:29)
[2016-09-20] MEDS: FLUoxetine HCL 20 MG CAPSULE (FP) PO SCH (09:29)
[2016-09-20] MEDS: BUPRENORPHINE/NALOXONE 8 MG/2 MG FILM PACKET SL SCH ×2 (09:31→21:45)
[2016-09-20] MEDS: NICOTINE 21 MG/24 HOURS TOPICAL PATCH TD SCH (09:32)
[2016-09-20] MEDS: ALBUTEROL SO4 6.7 GM HFA INHALER IH PRN (09:36)
[2016-09-20] MEDS: NAPROXEN 500 MG TABLET (FP) PO PRN ×2 (09:36→21:46)
[2016-09-20] MEDS: traZODone HCL 100 MG TABLET (FP) PO SCH (21:45)
[2016-09-20] MEDS: THIAMINE HCL 100 MG TABLET (FP) PO SCH (21:45)
[2016-09-21] MEDS: carBAMazepine 200 MG TABLET PO SCH ×2 (10:28→21:31)
[2016-09-21] MEDS: PRENATAL VITAMINS W/ FOLIC ACID TABLET (FP) PO SCH (10:29)
[2016-09-21] MEDS: risperiDONE 2 MG TABLET PO SCH ×2 (10:29→21:30)
[2016-09-21] MEDS: FLUoxetine HCL 20 MG CAPSULE (FP) PO SCH (10:29)
[2016-09-21] MEDS: RANITIDINE HCL 150 MG TABLET (FP) PO SCH ×2 (10:29→21:31)
[2016-09-21] MEDS: NICOTINE 21 MG/24 HOURS TOPICAL PATCH TD SCH (10:31)
[2016-09-21] MEDS ORDERED: BUPRENORPHINE/NALOXONE 8 MG/2 MG FILM PACKET SL ONE ×2 (10:44→11:07)
[2016-09-21] MEDS: NAPROXEN 500 MG TABLET (FP) PO PRN ×2 (10:53→21:32)
[2016-09-21] MEDS ORDERED: HYDROCORTISONE 1% TOPICAL CREAM 30 GM TUBE TP PRN (12:53)
--- NOTE | 2016-09-21 14:55 | PN ---
Psychiatric Progress Note Vital Signs: Vital Signs Period Temp Pulse Resp BP Sys/Albright Pulse Ox Last 24 Hr 97.9 F 78 16-18 102/63 Date of Session: 09/21/16 Chief Complaint:: "he is depressed" HPI: Patient is addressing alcohol, cannabis dependence comorbid Bipolar I disorder Current Medications: Active Medications Generic Name Dose Route Start Last Admin Trade Name Freq PRN Reason Stop Dose Admin Acetaminophen 650 mg 09/06/16 14:13 Tylenol - PO Q4H PRN FEVER OR PAIN Al Hydroxide/Mg Hydroxide 30 ml 09/06/16 14:13 Mylanta Oral Suspension - PO Q6H PRN DYSPEPSIA Albuterol Sulfate 2 puff 09/06/16 14:13 09/20/16 09:36 Ventolin Hfa Inhaler - IH 2 puff Q4H PRN Administration SHORT OF BREATH/WHEEZING Buprenorphine/Naloxone 1 each 09/21/16 22:00 Suboxone 8mg/2mg Sl Film - SL 09/28/16 21:59 BID OUMOU Carbamazepine 200 mg 09/06/16 22:00 09/21/16 10:28 Tegretol - PO 200 mg BID OUMOU Administration Diphenhydramine HCl 25 mg 09/07/16 13:50 09/14/16 21:32 Benadryl - PO 25 mg Q6H PRN Administration FOR ITCHING Eucalyptus/Menthol/Phenol/Sorbitol 1 each 09/06/16 14:13 Cepastat Lozenge - MM Q4H PRN SORE THROAT Fluoxetine HCl 40 mg 09/22/16 10:00 Prozac - PO DAILY OUMOU Guaifenesin 10 ml 09/06/16 14:13 Robitussin Dm - PO Q6H PRN COUGH Hydrocortisone 1 applic 09/21/16 12:53 Hytone 1% Cream - TP BID PRN DRY SKIN Hydroxyzine Pamoate 50 mg 09/07/16 14:46 09/20/16 09:29 Vistaril - PO 50 mg Q4H PRN Administration ANXIETY Lactic Acid 1 applic 09/18/16 12:25 Lac-Hydrin 12 TP BID PRN DRY SKIN Loperamide HCl 4 mg 09/06/16 14:13 Imodium - PO Q6H PRN DIARRHEA Magnesium Hydroxide 30 ml 09/06/16 14:13 Milk Of Magnesia - PO DAILY PRN CONSTIPATION Naproxen 500 mg 09/06/16 14:13 09/21/16 10:53 Naprosyn - PO 500 mg BID PRN Administration BACK PAIN Nicotine 21 mg 09/14/16 10:45 09/21/16 10:31 Nicoderm Patch - TD 21 mg DAILY OUMOU Administration Nicotine Polacrilex 2 mg 09/14/16 10:31 Nicorette Gum - BUC Q2H PRN NICOTINE REPLACEMENT RX Multivit/Folic Acid/Iron 1 tab 09/07/16 10:00 09/21/16 10:29 Vitamins (Sjr) - PO 1 tab DAILY OUMOU Administration Pseudoephedrine/Triprolidine 1 combo 09/06/16 14:13 Actifed - PO TID PRN NASAL CONGESTION Ranitidine HCl 150 mg 09/06/16 22:00 09/21/16 10:29 Zantac - PO 150 mg BID OUMOU Administration Risperidone 2 mg 09/07/16 22:00 09/21/16 10:29 Risperdal - PO 2 mg BID OUMOU Administration Selenium Sulfide 1 applic 09/22/16 10:00 Selsun 2.5% Lotion - TP 09/28/16 12:52 DAILY OUMOU Thiamine HCl 100 mg 09/06/16 22:00 09/20/16 21:45 Vitamin B1 - PO 100 mg HS OUMOU Administration Trazodone HCl 150 mg 09/21/16 22:00 Desyrel - PO HS OUMOU Medication(s) Change(s): increase Prozac 40 mg po daily, Trazodone 150 mg po hs. Current Side Effect: No Lab tests ordered: No Lab tests reviewed: Yes Provider note:: Patient was seen today, as per staff patient as he was observed by the staff looking depressed, sad and isolative. Patient reports he misses his he lost her last year, she from cancer, processed feeling with the patient, emotional supports provided, medications adjusted, will continue to monitor progress. Total face to face time:: 35 Mental Status Exam - Mental Status Exam Alert and Oriented to: Time, Place, Person Cognitive Function: Good Patient Appearance: Well Groomed Mood: Depressed, Sad Affect: Appropriate, Mood Congruent Patient Behavior: Appropriate, Cooperative Speech Pattern: Clear, Appropriate Voice Loudness: Normal Thought Process: Intact, Goal Oriented Thought Disorder: Not Present Hallucinations: Denies Suicidal Ideation: Denies Homicidal Ideation: Denies Insight/Judgement: Fair Sleep: Fair Appetite: Fair Muscle strength/Tone: Normal Gait/Station: Normal Psychiatric Treatment Plan - Problem List (1) Alcohol dependence Current Visit: No (2) Bipolar disorder Current Visit: No (3) Cannabis dependence Current Visit: No
[2016-09-21] MEDS: traZODone HCL 50 MG TABLET (FP) PO SCH (21:30)
[2016-09-21] MEDS: THIAMINE HCL 100 MG TABLET (FP) PO SCH (21:30)
[2016-09-21] MEDS: BUPRENORPHINE/NALOXONE 8 MG/2 MG FILM PACKET SL SCH (21:31)
[2016-09-22] MEDS: PRENATAL VITAMINS W/ FOLIC ACID TABLET (FP) PO SCH (09:30)
[2016-09-22] MEDS: risperiDONE 2 MG TABLET PO SCH ×2 (09:30→21:55)
[2016-09-22] MEDS: FLUoxetine HCL 20 MG CAPSULE (FP) PO SCH (09:30)
[2016-09-22] MEDS: carBAMazepine 200 MG TABLET PO SCH ×2 (09:30→21:55)
[2016-09-22] MEDS: RANITIDINE HCL 150 MG TABLET (FP) PO SCH ×2 (09:30→21:55)
[2016-09-22] MEDS: BUPRENORPHINE/NALOXONE 8 MG/2 MG FILM PACKET SL SCH ×2 (09:31→21:56)
[2016-09-22] MEDS: NICOTINE 21 MG/24 HOURS TOPICAL PATCH TD SCH (09:32)
[2016-09-22] MEDS: NAPROXEN 500 MG TABLET (FP) PO PRN ×2 (09:36→21:55)
[2016-09-22] MEDS: SELENIUM SULFIDE 2.5% LOTION 4 OZ. TP SCH (09:36)
[2016-09-22] MEDS: THIAMINE HCL 100 MG TABLET (FP) PO SCH (21:55)
[2016-09-22] MEDS: traZODone HCL 50 MG TABLET (FP) PO SCH (21:55)
[2016-09-23] MEDS: NAPROXEN 500 MG TABLET (FP) PO PRN ×2 (10:13→21:35)
[2016-09-23] MEDS: FLUoxetine HCL 20 MG CAPSULE (FP) PO SCH (10:13)
[2016-09-23] MEDS: PRENATAL VITAMINS W/ FOLIC ACID TABLET (FP) PO SCH (10:13)
[2016-09-23] MEDS: RANITIDINE HCL 150 MG TABLET (FP) PO SCH ×2 (10:13→21:35)
[2016-09-23] MEDS: risperiDONE 2 MG TABLET PO SCH ×2 (10:13→21:35)
[2016-09-23] MEDS: carBAMazepine 200 MG TABLET PO SCH ×2 (10:13→21:35)
[2016-09-23] MEDS: BUPRENORPHINE/NALOXONE 8 MG/2 MG FILM PACKET SL SCH ×2 (10:14→21:35)
[2016-09-23] MEDS: SELENIUM SULFIDE 2.5% LOTION 4 OZ. TP SCH (10:15)
[2016-09-23] MEDS: NICOTINE 21 MG/24 HOURS TOPICAL PATCH TD SCH (10:16)
[2016-09-23] MEDS: traZODone HCL 50 MG TABLET (FP) PO SCH (21:35)
[2016-09-23] MEDS: THIAMINE HCL 100 MG TABLET (FP) PO SCH (21:35)
[2016-09-24] MEDS: FLUoxetine HCL 20 MG CAPSULE (FP) PO SCH (10:08)
[2016-09-24] MEDS: BUPRENORPHINE/NALOXONE 8 MG/2 MG FILM PACKET SL SCH ×2 (10:08→21:20)
[2016-09-24] MEDS: SELENIUM SULFIDE 2.5% LOTION 4 OZ. TP SCH (10:08)
[2016-09-24] MEDS: NICOTINE 21 MG/24 HOURS TOPICAL PATCH TD SCH (10:08)
[2016-09-24] MEDS: risperiDONE 2 MG TABLET PO SCH ×2 (10:08→21:20)
[2016-09-24] MEDS: RANITIDINE HCL 150 MG TABLET (FP) PO SCH ×2 (10:08→21:20)
[2016-09-24] MEDS: carBAMazepine 200 MG TABLET PO SCH ×2 (10:08→21:20)
[2016-09-24] MEDS: PRENATAL VITAMINS W/ FOLIC ACID TABLET (FP) PO SCH (10:08)
[2016-09-24] MEDS: NAPROXEN 500 MG TABLET (FP) PO PRN ×2 (10:10→21:21)
[2016-09-24] MEDS: traZODone HCL 50 MG TABLET (FP) PO SCH (21:20)
[2016-09-24] MEDS: THIAMINE HCL 100 MG TABLET (FP) PO SCH (21:20)
[2016-09-25] MEDS: FLUoxetine HCL 20 MG CAPSULE (FP) PO SCH (10:17)
[2016-09-25] MEDS: RANITIDINE HCL 150 MG TABLET (FP) PO SCH ×2 (10:17→21:40)
[2016-09-25] MEDS: carBAMazepine 200 MG TABLET PO SCH ×2 (10:17→21:40)
[2016-09-25] MEDS: PRENATAL VITAMINS W/ FOLIC ACID TABLET (FP) PO SCH (10:17)
[2016-09-25] MEDS: risperiDONE 2 MG TABLET PO SCH ×2 (10:17→21:40)
[2016-09-25] MEDS: BUPRENORPHINE/NALOXONE 8 MG/2 MG FILM PACKET SL SCH ×2 (10:18→21:40)
[2016-09-25] MEDS: NICOTINE 21 MG/24 HOURS TOPICAL PATCH TD SCH (10:18)
[2016-09-25] MEDS: NAPROXEN 500 MG TABLET (FP) PO PRN ×2 (10:19→21:39)
[2016-09-25] MEDS: SELENIUM SULFIDE 2.5% LOTION 4 OZ. TP SCH (10:20)
--- NOTE | 2016-09-25 15:56 | PN ---
[facility] Progress Note Note: pt hit rt toes with a chair while walking ,pt ambulating well toes no redness, cuts, bruisesa or swelling good range of motion
[2016-09-25] MEDS: traZODone HCL 50 MG TABLET (FP) PO SCH (21:39)
[2016-09-25] MEDS: THIAMINE HCL 100 MG TABLET (FP) PO SCH (21:40)
[2016-09-26 06:45] VITALS: BP 138/81; PULSE 83; TEMP 98.1
[2016-09-26] MEDS: risperiDONE 2 MG TABLET PO SCH (10:32)
[2016-09-26] MEDS: PRENATAL VITAMINS W/ FOLIC ACID TABLET (FP) PO SCH (10:32)
[2016-09-26] MEDS: carBAMazepine 200 MG TABLET PO SCH (10:32)
[2016-09-26] MEDS: FLUoxetine HCL 20 MG CAPSULE (FP) PO SCH (10:32)
[2016-09-26] MEDS: RANITIDINE HCL 150 MG TABLET (FP) PO SCH (10:32)
[2016-09-26] MEDS: NICOTINE 21 MG/24 HOURS TOPICAL PATCH TD SCH (10:34)
[2016-09-26] MEDS: BUPRENORPHINE/NALOXONE 8 MG/2 MG FILM PACKET SL SCH (10:34)
[2016-09-26] MEDS: SELENIUM SULFIDE 2.5% LOTION 4 OZ. TP SCH (10:36)
--- NOTE | 2016-09-26 11:01 | PN ---
Psychiatric Progress Note Vital Signs: Vital Signs Period Temp Pulse Resp BP Sys/Albright Pulse Ox Last 24 Hr 98.1 F 83 18-18 138/81 Date of Session: 09/26/16 Chief Complaint:: discharge visit HPI: Patient has addressed alcohol, cannabis dependence comorbid Bipolar I disorder. Current Medications: Active Medications Generic Name Dose Route Start Last Admin Trade Name Freq PRN Reason Stop Dose Admin Acetaminophen 650 mg 09/06/16 14:13 Tylenol - PO Q4H PRN FEVER OR PAIN Al Hydroxide/Mg Hydroxide 30 ml 09/06/16 14:13 Mylanta Oral Suspension - PO Q6H PRN DYSPEPSIA Albuterol Sulfate 2 puff 09/06/16 14:13 09/20/16 09:36 Ventolin Hfa Inhaler - IH 2 puff Q4H PRN Administration SHORT OF BREATH/WHEEZING Buprenorphine/Naloxone 1 each 09/21/16 22:00 09/26/16 10:34 Suboxone 8mg/2mg Sl Film - SL 09/28/16 21:59 1 each BID OUMOU Administration Carbamazepine 200 mg 09/06/16 22:00 09/26/16 10:32 Tegretol - PO 200 mg BID OUMOU Administration Diphenhydramine HCl 25 mg 09/07/16 13:50 09/14/16 21:32 Benadryl - PO 25 mg Q6H PRN Administration FOR ITCHING Eucalyptus/Menthol/Phenol/Sorbitol 1 each 09/06/16 14:13 Cepastat Lozenge - MM Q4H PRN SORE THROAT Fluoxetine HCl 40 mg 09/22/16 10:00 09/26/16 10:32 Prozac - PO 40 mg DAILY OUMOU Administration Guaifenesin 10 ml 09/06/16 14:13 Robitussin Dm - PO Q6H PRN COUGH Hydrocortisone 1 applic 09/21/16 12:53 Hytone 1% Cream - TP BID PRN DRY SKIN Hydroxyzine Pamoate 50 mg 09/07/16 14:46 09/20/16 09:29 Vistaril - PO 50 mg Q4H PRN Administration ANXIETY Lactic Acid 1 applic 09/18/16 12:25 Lac-Hydrin 12 TP BID PRN DRY SKIN Loperamide HCl 4 mg 09/06/16 14:13 Imodium - PO Q6H PRN DIARRHEA Magnesium Hydroxide 30 ml 09/06/16 14:13 Milk Of Magnesia - PO DAILY PRN CONSTIPATION Naproxen 500 mg 09/06/16 14:13 09/25/16 21:39 Naprosyn - PO 500 mg BID PRN Administration BACK PAIN Nicotine 21 mg 09/14/16 10:45 09/26/16 10:34 Nicoderm Patch - TD Not Given DAILY OUMOU Nicotine Polacrilex 2 mg 09/14/16 10:31 Nicorette Gum - BUC Q2H PRN NICOTINE REPLACEMENT RX Multivit/Folic Acid/Iron 1 tab 09/07/16 10:00 09/26/16 10:32 Vitamins (Sjr) - PO 1 tab DAILY OUMOU Administration Pseudoephedrine/Triprolidine 1 combo 09/06/16 14:13 Actifed - PO TID PRN NASAL CONGESTION Ranitidine HCl 150 mg 09/06/16 22:00 09/26/16 10:32 Zantac - PO 150 mg BID OUMOU Administration Risperidone 2 mg 09/07/16 22:00 09/26/16 10:32 Risperdal - PO 2 mg BID OUMOU Administration Selenium Sulfide 1 applic 09/22/16 10:00 09/26/16 10:36 Selsun 2.5% Lotion - TP 09/28/16 12:52 Not Given DAILY OUMOU Thiamine HCl 100 mg 09/06/16 22:00 09/25/16 21:40 Vitamin B1 - PO 100 mg HS OUMOU Administration Trazodone HCl 150 mg 09/21/16 22:00 09/25/16 21:39 Desyrel - PO 150 mg HS OUMOU Administration Current Side Effect: No Lab tests ordered: No Lab tests reviewed: Yes Provider note:: Patient has completed today his treatment and met his goals will continue to address his issues at [facility] outpatient treatment program. PAtient gained insights into importance of changing attitude for the utilization of supports to prevent relapses. MEdications well tolerated , scripts provided for 30 days, patient was encouraged to take medications as indicated and follow up with his appointments. Patient is stable for discharge. Total face to face time:: 35 Mental Status Exam - Mental Status Exam Alert and Oriented to: Time, Place, Person Cognitive Function: Good Patient Appearance: Well Groomed Mood: Hopeful Affect: Appropriate, Mood Congruent Patient Behavior: Appropriate, Cooperative Speech Pattern: Clear, Appropriate Voice Loudness: Normal Thought Process: Intact, Goal Oriented Thought Disorder: Not Present Hallucinations: Denies Suicidal Ideation: Denies Homicidal Ideation: Denies Insight/Judgement: Fair Sleep: Fair Appetite: Good Muscle strength/Tone: Normal Gait/Station: Normal Psychiatric Treatment Plan - Problem List (1) Alcohol dependence Current Visit: No (2) Bipolar disorder Current Visit: No (3) Cannabis dependence Current Visit: No
== END 2016-09-26 11:10 | disposition home or self-care (01) | DRG 772 ==
LOC: YASAS 14:00 → Y5N 14:02
PROVIDERS: ADMIT Psychiatry & Neurology Psychiatry; ATTEND Psychiatry & Neurology Psychiatry
PROC: HZ42ZZZ Group Counseling for Substance Abuse Treatment, Cognitive-Behavioral (ICD-10-PCS; principal; 2016-09-26)
DX: F10.230 Alcohol dependence with withdrawal, uncomplicated (principal); F12.20 Cannabis dependence, uncomplicated; F32.9 Major depressive disorder, single episode, unspecified
CPT/HCPCS: 73610-TC-LT; 93005; 93010

== ENCOUNTER 2017-12-02 10:19 | Inpatient (IN) | payer OTHER ==
[2017-12-02 11:50] VITALS: BMI 22.2
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
[2017-12-02] MEDS ORDERED: MAG HYDROX/AL HYDROX/SIMETH 30 ML UNIT-DOSE CUP PO PRN (13:54)
[2017-12-02] MEDS ORDERED: NICOTINE POLACRILEX 4 MG GUM BUC PRN (13:54)
[2017-12-02] MEDS ORDERED: chlordiazePOXIDE HCL 25 MG CAPSULE PO PRN (13:54)
[2017-12-02] MEDS ORDERED: MAGNESIUM HYDROX 2400MG/30ML ORAL SUSPENSION 30 ML CUP PO PRN (13:54)
[2017-12-02] MEDS ORDERED: MENTHOL/PHENOL 1 EACH UD MM PRN (13:54)
[2017-12-02] MEDS ORDERED: MAGNESIUM CITRATE 300 ML BOTTLE PO PRN (13:54)
[2017-12-02] MEDS ORDERED: LOPERAMIDE HCL 2 MG CAPSULE PO PRN (13:54)
[2017-12-02] MEDS ORDERED: guaiFENesin/D-METHORPHAN HB 10 ML UNIT-DOSE CUPS PO PRN (13:54)
[2017-12-02] MEDS ORDERED: hydrOXYzine PAMOATE 50 MG CAPSULE (FP) PO PRN (13:54)
[2017-12-02] MEDS ORDERED: P-EPHED 60MG/TRIPROLIDI 2.5MG TABLET PO PRN (13:54)
[2017-12-02] MEDS ORDERED: ACETAMINOPHEN 325 MG TABLET (FP) PO PRN (13:59)
[2017-12-02] MEDS ORDERED: chlordiazePOXIDE HCL 25 MG CAPSULE PO ONE (14:30)
[2017-12-02] MEDS: INSULIN SLIDING SCALE (NOVOLOG) 1 VIAL SQ SCH (18:33)
[2017-12-02] MEDS: chlordiazePOXIDE HCL 25 MG CAPSULE PO SCH ×2 (18:33→22:54)
[2017-12-02] MEDS: IBUPROFEN 400 MG TABLET (FP) PO PRN (21:48)
[2017-12-02] MEDS ORDERED: MELATONIN 5 MG TABLETS PO PRN (22:00)
[2017-12-02 22:04] LABS: URINE APPEARANCE CLEAR; URINE BILIRUBIN NEGATIVE (<2.0 mg/dL); URINE COLOR YELLOW; URINE GLUCOSE (UA) NEGATIVE (NEGATIVE); URINE KETONE NEGATIVE (NEGATIVE); URINE LEUK ESTERASE NEGATIVE (NEGATIVE); URINE NITRITE NEGATIVE (NEGATIVE); URINE PROTEIN NEGATIVE (NEGATIVE); URINE UROBILINOGEN NEGATIVE mg/dL (0.2-1.0)
[2017-12-02 22:08] LABS: EPI CELLS RARE /HPF (FEW); URINE MUCUS RARE
[2017-12-02] MEDS: THIAMINE HCL 100 MG TABLET (FP) PO SCH (22:54)
[2017-12-03] MEDS: chlordiazePOXIDE HCL 25 MG CAPSULE PO SCH ×4 (06:32→22:41)
[2017-12-03] MEDS: INSULIN SLIDING SCALE (NOVOLOG) 1 VIAL SQ SCH ×3 (07:01→17:42)
--- NOTE | 2017-12-03 08:51 | EKG ---
Test Reason : Blood Pressure : / mmHG Vent. Rate : 065 BPM Atrial Rate : 065 BPM P-R Int : 132 ms QRS Dur : 102 ms QT Int : 390 ms P-R-T Axes : 070 079 055 degrees QTc Int : 405 ms NORMAL SINUS RHYTHM VOLTAGE CRITERIA FOR LEFT VENTRICULAR HYPERTROPHY EARLY REPOLARIZATION ABNORMAL ECG WHEN COMPARED WITH ECG OF 14-SEP-2016 15:43, NO SIGNIFICANT CHANGE WAS FOUND OTHER CHANGE IN MORPHOLOGY OF LEAD V2, RELATED TO LEAD POSITIONING Confirmed by IMELDA MAYS MD ([id number]) on 12/03/2017 8:51:06 AM Referred By: Confirmed By:IMELDA MAYS MD
[2017-12-03 10:32] LABS: HEMATOCRIT 43.9 % (35.4-49); HEMOGLOBIN 14.6 GM/dL (11.7-16.9); MCH 31.5 pg (25.7-33.7); MCHC 33.3 g/dl (32.0-35.9); MEAN CELL VOLUME 94.8 fl (80-96); MEAN PLT VOLUME 9.6 fl (7.5-11.1); PLATELET COUNT 294 K/MM3 (134-434); RBC 4.63 M/mm3 (4.00-5.60); RDW 17.2 % (11.9-15.9); WHITE BLOOD COUNT 4.6 K/mm3 (4.0-10.0)
[2017-12-03 10:39] LABS: ALBUMIN 3.6 g/dl (3.4-5.0); ANION GAP 5 (8-16); BLOOD UREA NITROGEN 10 mg/dL (7-18); CALCIUM 9.1 mg/dL (8.5-10.1); CHLORIDE 103 mmol/L (98-107); CO2 30 mmol/L (21-32); CREATININE 0.8 mg/dL (0.7-1.3); GLUCOSE,RANDOM 79 mg/dL (74-106); POTASSIUM 4.2 mmol/L (3.5-5.1); SGOT/AST 30 U/L (15-37); SGPT/ALT 42 U/L (12-78); SODIUM 138 mmol/L (136-145)
[2017-12-03 10:41] LABS: ALK PHOS 60 U/L (45-117); TOT PROT 7.4 g/dl (6.4-8.2)
[2017-12-03] MEDS: PRENATAL VITAMINS W/ FOLIC ACID TABLET (FP) PO SCH (10:44)
[2017-12-03] MEDS: NICOTINE 21 MG/24 HOURS TOPICAL PATCH TD SCH (10:44)
--- NOTE | 2017-12-03 11:04 | CONSULT ---
[facility] Psychiatric Consult - Data Date of interview: 12/03/17 Admission source: [facility] Identifying data: Mr Stafford is approached on TWO occasions for psychiatric interview.DECLINED.
--- NOTE | 2017-12-03 12:32 | PN ---
[facility] CIWA - CIWA Score Nausea/Vomitin Muscle Tremors: 2 Anxiety: 5 Agitation: 5 Paroxysmal Sweats: 2 Orientation: 0-Oriented Tacttile Disturbances: 0-None Auditory Disturbances: 0-None Visual Disturbances: 0-None Headache: 0-None Present CIWA-Ar Total Score: 16 BHS Progress Note (SOAP) Subjective: sweats shakes Sleep disturbance R ankle pain Objective: 12/03/17 12:29 A & O x 3 Irritable Limping Vital Signs Temperature 97.1 F L 12/03/17 09:56 Pulse Rate 66 12/03/17 09:56 Respiratory Rate 18 12/03/17 09:56 Blood Pressure 113/75 12/03/17 09:56 O2 Sat by Pulse Oximetry (%) Laboratory Last Values WBC 4.6 K/mm3 (4.0-10.0) 12/03/17 07:55 RBC 4.63 M/mm3 (4.00-5.60) 12/03/17 07:55 Hgb 14.6 GM/dL (11.7-16.9) 12/03/17 07:55 Hct 43.9 % (35.4-49) 12/03/17 07:55 MCV 94.8 fl (80-96) 12/03/17 07:55 MCH 31.5 pg (25.7-33.7) 12/03/17 07:55 MCHC 33.3 g/dl (32.0-35.9) 12/03/17 07:55 RDW 17.2 % (11.9-15.9) H 12/03/17 07:55 Plt Count 294 K/MM3 (134-434) 12/03/17 07:55 MPV 9.6 fl (7.5-11.1) 12/03/17 07:55 Sodium 138 mmol/L (136-145) 12/03/17 07:55 Potassium 4.2 mmol/L (3.5-5.1) 12/03/17 07:55 Chloride 103 mmol/L (98-107) 12/03/17 07:55 Carbon Dioxide 30 mmol/L (21-32) 12/03/17 07:55 Anion Gap 5 (8-16) L 12/03/17 07:55 BUN 10 mg/dL (7-18) D 12/03/17 07:55 Creatinine 0.8 mg/dL (0.7-1.3) 12/03/17 07:55 Creat Clearance w eGFR > 60 (>60) 12/03/17 07:55 POC Glucometer 101 UNITS (80-120) 12/03/17 11:01 Random Glucose 79 mg/dL (74-106) 12/03/17 07:55 Calcium 9.1 mg/dL (8.5-10.1) 12/03/17 07:55 Total Bilirubin 1.0 mg/dL (0.2-1.0) 12/03/17 07:55 AST 30 U/L (15-37) 12/03/17 07:55 ALT 42 U/L (12-78) 12/03/17 07:55 Alkaline Phosphatase 60 U/L (45-117) 12/03/17 07:55 Total Protein 7.4 g/dl (6.4-8.2) 12/03/17 07:55 Albumin 3.6 g/dl (3.4-5.0) 12/03/17 07:55 Urine Color Yellow 12/02/17 19:56 Urine Appearance Clear 12/02/17 19:56 Urine pH 5.0 (5.0-8.0) 12/02/17 19:56 Ur Specific [place] 1.021 (1.001-1.035) 12/02/17 19:56 Urine Protein Negative (NEGATIVE) 12/02/17 19:56 Urine Glucose (UA) Negative (NEGATIVE) 12/02/17 19:56 Urine Ketones Negative (NEGATIVE) 12/02/17 19:56 Urine Blood 1+ (NEGATIVE) H 12/02/17 19:56 Urine Nitrite Negative (NEGATIVE) 12/02/17 19:56 Urine Bilirubin Negative (<2.0 mg/dL) 12/02/17 19:56 Urine Urobilinogen Negative mg/dL (0.2-1.0) 12/02/17 19:56 Ur Leukocyte Esterase Negative (NEGATIVE) 12/02/17 19:56 Urine WBC (Auto) 1 /hpf (3-5) 12/02/17 19:56 Urine RBC (Auto) 1 /hpf (0-3) 12/02/17 19:56 Ur Epithelial Cells Rare /HPF (FEW) 12/02/17 19:56 Urine Mucus Rare 12/02/17 19:56 RPR Titer Nonreactive (NONREACTIVE) 12/03/17 07:55 HIV 1&2 Antibody Screen Negative 12/03/17 07:55 HIV P24 Antigen Negative 12/03/17 07:55 LAbs noted, abnormal urine results Assessment: 12/03/17 12:31 withdrawal sx Plan: continue detox increase hydration Cane for ambulation
[2017-12-03] MEDS: IBUPROFEN 400 MG TABLET (FP) PO PRN ×2 (17:41→21:15)
[2017-12-03] MEDS: ALBUTEROL SO4 18 GM HFA INHALER IH PRN (21:15)
[2017-12-03] MEDS: THIAMINE HCL 100 MG TABLET (FP) PO SCH (22:41)
[2017-12-04] MEDS: chlordiazePOXIDE HCL 25 MG CAPSULE PO SCH ×2 (07:15→10:41)
[2017-12-04] MEDS: INSULIN SLIDING SCALE (NOVOLOG) 1 VIAL SQ SCH ×3 (07:54→16:42)
[2017-12-04] MEDS: PRENATAL VITAMINS W/ FOLIC ACID TABLET (FP) PO SCH (10:36)
[2017-12-04] MEDS: NICOTINE 21 MG/24 HOURS TOPICAL PATCH TD SCH (10:41)
--- NOTE | 2017-12-04 16:18 | PN ---
S CIWA - CIWA Score Nausea/Vomitin-No Nausea/No Vomiting Muscle Tremors: 2 Anxiety: 5 Agitation: 4-Moderately Restless Paroxysmal Sweats: 2 Orientation: 0-Oriented Tacttile Disturbances: 2-Mild Itch/Numbness/Burn Auditory Disturbances: 0-None Visual Disturbances: 0-None Headache: 0-None Present CIWA-Ar Total Score: 15 BHS Progress Note (SOAP) Subjective: Anxious, Tremors, Sweating, Body Aches. Objective: PATIENT A & O X 3, OBSERVED AMBULATING ON UNIT WITH ASSSITANCE OF A CANE. NO ACUTE DISTRESS. 12/04/17 16:16 Vital Signs Temperature 97.3 F L 12/04/17 13:28 Pulse Rate 74 12/04/17 13:28 Respiratory Rate 18 12/04/17 13:28 Blood Pressure 109/73 12/04/17 13:28 O2 Sat by Pulse Oximetry (%) Laboratory Tests 12/02/17 12/02/17 12/02/17 13:47 16:21 19:56 WBC RBC Hgb Hct MCV MCH MCHC RDW Plt Count MPV Sodium Potassium Chloride Carbon Dioxide Anion Gap BUN Creatinine Creat Clearance w eGFR POC Glucometer 78 139 Random Glucose Calcium Total Bilirubin AST ALT Alkaline Phosphatase Total Protein Albumin Urine Color Yellow Urine Appearance Clear Urine pH 5.0 Ur Specific [place] 1.021 Urine Protein Negative Urine Glucose (UA) Negative Urine Ketones Negative Urine Blood 1+ H Urine Nitrite Negative Urine Bilirubin Negative Urine Urobilinogen Negative Ur Leukocyte Esterase Negative Urine WBC (Auto) 1 Urine RBC (Auto) 1 Ur Epithelial Cells Rare Urine Mucus Rare RPR Titer HIV 1&2 Antibody Screen HIV P24 Antigen 12/03/17 12/03/17 12/03/17 06:30 07:55 07:55 WBC 4.6 RBC 4.63 Hgb 14.6 Hct 43.9 MCV 94.8 MCH 31.5 MCHC 33.3 RDW 17.2 H Plt Count 294 MPV 9.6 Sodium Potassium Chloride Carbon Dioxide Anion Gap BUN Creatinine Creat Clearance w eGFR POC Glucometer 85 Random Glucose Calcium Total Bilirubin AST ALT Alkaline Phosphatase Total Protein Albumin Urine Color Urine Appearance Urine pH Ur Specific [place] Urine Protein Urine Glucose (UA) Urine Ketones Urine Blood Urine Nitrite Urine Bilirubin Urine Urobilinogen Ur Leukocyte Esterase Urine WBC (Auto) Urine RBC (Auto) Ur Epithelial Cells Urine Mucus RPR Titer HIV 1&2 Antibody Screen Negative HIV P24 Antigen Negative 12/03/17 12/03/17 12/03/17 07:55 07:55 11:01 WBC RBC Hgb Hct MCV MCH MCHC RDW Plt Count MPV Sodium 138 Potassium 4.2 Chloride 103 Carbon Dioxide 30 Anion Gap 5 L BUN 10 D Creatinine 0.8 Creat Clearance w eGFR > 60 POC Glucometer 101 Random Glucose 79 Calcium 9.1 Total Bilirubin 1.0 AST 30 ALT 42 Alkaline Phosphatase 60 Total Protein 7.4 Albumin 3.6 Urine Color Urine Appearance Urine pH Ur Specific [place] Urine Protein Urine Glucose (UA) Urine Ketones Urine Blood Urine Nitrite Urine Bilirubin Urine Urobilinogen Ur Leukocyte Esterase Urine WBC (Auto) Urine RBC (Auto) Ur Epithelial Cells Urine Mucus RPR Titer Nonreactive HIV 1&2 Antibody Screen HIV P24 Antigen 12/03/17 12/04/17 16:28 11:15 WBC RBC Hgb Hct MCV MCH MCHC RDW Plt Count MPV Sodium Potassium Chloride Carbon Dioxide Anion Gap BUN Creatinine Creat Clearance w eGFR POC Glucometer 109 88 Random Glucose Calcium Total Bilirubin AST ALT Alkaline Phosphatase Total Protein Albumin Urine Color Urine Appearance Urine pH Ur Specific [place] Urine Protein Urine Glucose (UA) Urine Ketones Urine Blood Urine Nitrite Urine Bilirubin Urine Urobilinogen Ur Leukocyte Esterase Urine WBC (Auto) Urine RBC (Auto) Ur Epithelial Cells Urine Mucus RPR Titer HIV 1&2 Antibody Screen HIV P24 Antigen LABS NOTED. Assessment: 12/04/17 16:17 WITHDRAWAL SYMPTOMS. Plan: CONTINUE DETOX.
[2017-12-04] MEDS: chlordiazePOXIDE 5 MG CAPSULE PO SCH ×2 (16:59→22:51)
[2017-12-04] MEDS: BACITRACIN 0.9 GM PACKET TP SCH (22:51)
[2017-12-04] MEDS: THIAMINE HCL 100 MG TABLET (FP) PO SCH (22:51)
[2017-12-05] MEDS: INSULIN SLIDING SCALE (NOVOLOG) 1 VIAL SQ SCH ×3 (07:27→16:25)
[2017-12-05] MEDS: chlordiazePOXIDE 5 MG CAPSULE PO SCH ×2 (07:27→10:36)
[2017-12-05] MEDS: NICOTINE 21 MG/24 HOURS TOPICAL PATCH TD SCH (10:36)
[2017-12-05] MEDS: BACITRACIN 0.9 GM PACKET TP SCH ×2 (10:36→22:31)
[2017-12-05] MEDS: PRENATAL VITAMINS W/ FOLIC ACID TABLET (FP) PO SCH (10:36)
[2017-12-05] MEDS ORDERED: NAPROXEN 375 MG TABLET (FP) PO ONE (12:26)
--- NOTE | 2017-12-05 13:05 | PN ---
BHS Progress Note (SOAP) Subjective: Fatigue, Body Aches, Anxious. Objective: PATIENT A & O X 3. NO ACUTE DISTRESS. 12/05/17 13:02 Vital Signs Temperature 98.8 F 12/05/17 09:23 Pulse Rate 82 12/05/17 09:23 Respiratory Rate 18 12/05/17 09:23 Blood Pressure 103/66 12/05/17 09:23 O2 Sat by Pulse Oximetry (%) Laboratory Tests 12/02/17 12/02/17 12/02/17 13:47 16:21 19:56 WBC RBC Hgb Hct MCV MCH MCHC RDW Plt Count MPV Sodium Potassium Chloride Carbon Dioxide Anion Gap BUN Creatinine Creat Clearance w eGFR POC Glucometer 78 139 Random Glucose Calcium Total Bilirubin AST ALT Alkaline Phosphatase Total Protein Albumin Urine Color Yellow Urine Appearance Clear Urine pH 5.0 Ur Specific [place] 1.021 Urine Protein Negative Urine Glucose (UA) Negative Urine Ketones Negative Urine Blood 1+ H Urine Nitrite Negative Urine Bilirubin Negative Urine Urobilinogen Negative Ur Leukocyte Esterase Negative Urine WBC (Auto) 1 Urine RBC (Auto) 1 Ur Epithelial Cells Rare Urine Mucus Rare RPR Titer HIV 1&2 Antibody Screen HIV P24 Antigen 12/03/17 12/03/17 12/03/17 06:30 07:55 07:55 WBC 4.6 RBC 4.63 Hgb 14.6 Hct 43.9 MCV 94.8 MCH 31.5 MCHC 33.3 RDW 17.2 H Plt Count 294 MPV 9.6 Sodium Potassium Chloride Carbon Dioxide Anion Gap BUN Creatinine Creat Clearance w eGFR POC Glucometer 85 Random Glucose Calcium Total Bilirubin AST ALT Alkaline Phosphatase Total Protein Albumin Urine Color Urine Appearance Urine pH Ur Specific [place] Urine Protein Urine Glucose (UA) Urine Ketones Urine Blood Urine Nitrite Urine Bilirubin Urine Urobilinogen Ur Leukocyte Esterase Urine WBC (Auto) Urine RBC (Auto) Ur Epithelial Cells Urine Mucus RPR Titer HIV 1&2 Antibody Screen Negative HIV P24 Antigen Negative 12/03/17 12/03/17 12/03/17 07:55 07:55 11:01 WBC RBC Hgb Hct MCV MCH MCHC RDW Plt Count MPV Sodium 138 Potassium 4.2 Chloride 103 Carbon Dioxide 30 Anion Gap 5 L BUN 10 D Creatinine 0.8 Creat Clearance w eGFR > 60 POC Glucometer 101 Random Glucose 79 Calcium 9.1 Total Bilirubin 1.0 AST 30 ALT 42 Alkaline Phosphatase 60 Total Protein 7.4 Albumin 3.6 Urine Color Urine Appearance Urine pH Ur Specific [place] Urine Protein Urine Glucose (UA) Urine Ketones Urine Blood Urine Nitrite Urine Bilirubin Urine Urobilinogen Ur Leukocyte Esterase Urine WBC (Auto) Urine RBC (Auto) Ur Epithelial Cells Urine Mucus RPR Titer Nonreactive HIV 1&2 Antibody Screen HIV P24 Antigen 12/03/17 12/04/17 12/04/17 16:28 07:50 11:15 WBC RBC Hgb Hct MCV MCH MCHC RDW Plt Count MPV Sodium Potassium Chloride Carbon Dioxide Anion Gap BUN Creatinine Creat Clearance w eGFR POC Glucometer 109 95 88 Random Glucose Calcium Total Bilirubin AST ALT Alkaline Phosphatase Total Protein Albumin Urine Color Urine Appearance Urine pH Ur Specific [place] Urine Protein Urine Glucose (UA) Urine Ketones Urine Blood Urine Nitrite Urine Bilirubin Urine Urobilinogen Ur Leukocyte Esterase Urine WBC (Auto) Urine RBC (Auto) Ur Epithelial Cells Urine Mucus RPR Titer HIV 1&2 Antibody Screen HIV P24 Antigen 12/04/17 12/05/17 12/05/17 16:19 06:14 11:54 WBC RBC Hgb Hct MCV MCH MCHC RDW Plt Count MPV Sodium Potassium Chloride Carbon Dioxide Anion Gap BUN Creatinine Creat Clearance w eGFR POC Glucometer 88 94 91 Random Glucose Calcium Total Bilirubin AST ALT Alkaline Phosphatase Total Protein Albumin Urine Color Urine Appearance Urine pH Ur Specific [place] Urine Protein Urine Glucose (UA) Urine Ketones Urine Blood Urine Nitrite Urine Bilirubin Urine Urobilinogen Ur Leukocyte Esterase Urine WBC (Auto) Urine RBC (Auto) Ur Epithelial Cells Urine Mucus RPR Titer HIV 1&2 Antibody Screen HIV P24 Antigen LABS NOTED. Assessment: 12/05/17 13:03 WITHDRAWAL SYMPTOMS. Plan: CONTINUE DETOX. INCREASE DAILY PO FLUID INTAKE. CONTINUE WOUND CARE ON RIGHT ANKLE DIRECTED. NAPROXEN BID FOR PAIN AND SWELLING OF RIGHT ANKLE. PATIENT SCHEDULED FOR D/C TOMORROW.
[2017-12-05] MEDS: chlordiazePOXIDE HCL 10 MG CAPSULE PO SCH ×2 (17:59→22:31)
[2017-12-05] MEDS ORDERED: NAPROXEN 375 MG TABLET (FP) PO SCH (22:00)
[2017-12-05] MEDS: ALBUTEROL SO4 18 GM HFA INHALER IH PRN (22:37)
[2017-12-05] MEDS: THIAMINE HCL 100 MG TABLET (FP) PO SCH (22:39)
[2017-12-06 06:03] VITALS: BP 120/71; PULSE 70; TEMP 96.7
[2017-12-06] MEDS: chlordiazePOXIDE HCL 10 MG CAPSULE PO SCH (07:34)
== END 2017-12-06 06:45 | disposition home or self-care (01) | DRG 775 ==
LOC: YASAS 10:19 → Y3N 14:17
PROVIDERS: ADMIT Internal Medicine; ATTEND Internal Medicine
PROC: HZ2ZZZZ Detoxification Services for Substance Abuse Treatment (ICD-10-PCS; principal; 2017-12-02)
DX: F10.230 Alcohol dependence with withdrawal, uncomplicated (principal); F12.20 Cannabis dependence, uncomplicated; F17.210 Nicotine dependence, cigarettes, uncomplicated; F19.24 Other psychoactive substance dependence with psychoactive substance-induced mood disorder; G40.909 Epilepsy, unspecified, not intractable, without status epilepticus; J45.20 Mild intermittent asthma, uncomplicated; E11.9 Type 2 diabetes mellitus without complications; D57.1 Sickle-cell disease without crisis; R82.90 Unspecified abnormal findings in urine; M32.8 Other forms of systemic lupus erythematosus; Z79.4 Long term (current) use of insulin; Z91.5 Personal history of self-harm
CPT/HCPCS: 36415; 80053; 81003; 81015; 82962; 85027; 86593; 87389; 93005; 93010

== ENCOUNTER 2018-04-21 11:41 | Inpatient (IN) | payer OTHER ==
[2018-04-21 11:45] VITALS: BMI 22.5
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
[2018-04-21] MEDS ORDERED: MAGNESIUM HYDROX 2400MG/30ML ORAL SUSPENSION 30 ML CUP PO PRN (12:05)
[2018-04-21] MEDS ORDERED: P-EPHED 60MG/TRIPROLIDI 2.5MG TABLET PO PRN (12:05)
[2018-04-21] MEDS ORDERED: guaiFENesin/D-METHORPHAN HB 10 ML UNIT-DOSE CUPS PO PRN (12:05)
[2018-04-21] MEDS ORDERED: MAG HYDROX/AL HYDROX/SIMETH 30 ML UNIT-DOSE CUP PO PRN (12:05)
[2018-04-21] MEDS ORDERED: ACETAMINOPHEN 325 MG TABLET (FP) PO PRN (12:05)
[2018-04-21] MEDS ORDERED: hydrOXYzine PAMOATE 25 MG CAPSULE (FP) PO PRN (12:05)
[2018-04-21] MEDS ORDERED: chlordiazePOXIDE HCL 25 MG CAPSULE PO PRN (12:05)
[2018-04-21] MEDS ORDERED: MAGNESIUM CITRATE 300 ML BOTTLE PO PRN (12:05)
[2018-04-21] MEDS ORDERED: LOPERAMIDE HCL 2 MG CAPSULE PO PRN (12:05)
[2018-04-21] MEDS ORDERED: MENTHOL/PHENOL 1 EACH UD MM PRN (12:05)
[2018-04-21] MEDS: NICOTINE 21 MG/24 HOURS TOPICAL PATCH TD SCH (15:19)
[2018-04-21 17:37] LABS: URINE APPEARANCE CLEAR; URINE BILIRUBIN NEGATIVE (<2.0 mg/dL); URINE COLOR LTYELLOW; URINE GLUCOSE (UA) NEGATIVE (NEGATIVE); URINE KETONE NEGATIVE (NEGATIVE); URINE LEUK ESTERASE NEGATIVE (NEGATIVE); URINE NITRITE NEGATIVE (NEGATIVE); URINE PROTEIN NEGATIVE (NEGATIVE); URINE UROBILINOGEN NEGATIVE mg/dL (0.2-1.0)
[2018-04-21] MEDS: chlordiazePOXIDE HCL 25 MG CAPSULE PO SCH ×2 (17:56→22:19)
[2018-04-21] MEDS: RANITIDINE HCL 150 MG TABLET (FP) PO SCH (22:17)
[2018-04-21] MEDS: levETIRAcetam 500 MG TABLET (FP) PO SCH (22:17)
[2018-04-21] MEDS: THIAMINE HCL 100 MG TABLET (FP) PO SCH (22:17)
[2018-04-21] MEDS: ALBUTEROL SO4 8 GM HFA INHALER IH PRN (22:20)
[2018-04-21] MEDS: INSULIN (LEVEMIR) 100 UNITS/ML UNITS SQ SCH (22:25)
[2018-04-21] MEDS: MELATONIN 5 MG TABLETS PO PRN (22:25)
[2018-04-21] MEDS: carBAMazepine 200 MG TABLET PO SCH (23:31)
[2018-04-22] MEDS: chlordiazePOXIDE HCL 25 MG CAPSULE PO SCH ×4 (07:19→22:38)
[2018-04-22] MEDS: INSULIN (LEVEMIR) 100 UNITS/ML UNITS SQ SCH (07:25)
--- NOTE | 2018-04-22 07:44 | CONSULT ---
[facility] Psychiatric Consult - Data Date of interview: 04/22/18 Admission source: [facility] Identifying data: This is a 32 years old male, widiowed, father of eight, living with family, on PA support, with psychiatric hospitalization history, Bipolar Disorder history, with Alcohol, Marijuana and Nicotine dependence, seeking detox, reporting Alcohol withdrawal symptoms. Last detox [facility] 12/02/17 t0 12/06/17. Denies suicidal, homicidal history Substance Abuse History: - Smoking Cessation. Smoking history: Current every day smoker. Have you smoked in the past 12 months: Yes. Aproximately how many cigarettes per day: 5. Cigars Per Day: 0. Hx Chewing Tobacco Use: No. Initiated information on smoking cessation: Yes. 'Breaking Loose' booklet given : 04/21/18. - Substance & Tx. History. Hx Alcohol Use: Yes. Hx Substance Use : Yes. Substance Use Type: Alcohol, Marijuana. Hx Substance Use Treatment: Yes ([facility] 12/02/17 to 12/06/17). - Substances Abused. Alcohol. Route: Oral. Frequency: Daily. Amount used: 3 pints of vodka,[place]/10 of 32 ozs of beer. Age of first use: 18. Date of Last Use: 04/21/18. Marijuana/ Hashish. Route: Smoking. Frequency: Daily. Amount used: 300$. Age of first use: 18. Date of Last Use: 04/21/18 Medical History: HTN, DM-1, Seizure history, Asthma Psychiatric History: Patient reports history of Bipolar Disorder with most recent psychiatric admission on 2 weeks ago at [facility]. Patienht reports taking prior to admission: Risperdal 2mg po tid. Prozac 40mg poqd. Trazodone 200mg po qhs Physical/Sexual Abuse/Trauma History: Denies Additional Comment: Risperdal 2mg po tid. Prozac 40mg poqd. Trazodone 200mg po qhs Mental Status Exam - Mental Status Exam Alert and Oriented to: Person Cognitive Function: Fair Patient Appearance: Unkempt Mood: Anxious Affect: Mood Congruent Patient Behavior: Cooperative Speech Pattern: Appropriate Voice Loudness: Mildly Soft/Quiet Thought Process: Circumstantial, Goal Oriented Thought Disorder: Being Controlled Hallucinations: Denies Suicidal Ideation: Denies Homicidal Ideation: Denies Insight/Judgement: Fair Sleep: Difficulty falling asleep Appetite: Weight gain Muscle strength/Tone: Mild Hypotonicity Gait/Station: Shuffling Additional Comments: Risperdal 2mg po tid. Prozac 40mg poqd. Trazodone 200mg po qhs Psychiatric Findings - Problem List ([place] 1, 2,3) (1) Alcohol dependence Status: Acute (2) Alcohol dependence with uncomplicated withdrawal Status: Acute (3) Alcohol dependence, episodic drinking behavior Status: Acute (4) Drug-induced mood disorder Status: Acute (5) Asthma Status: Chronic Qualifiers: Asthma severity: mild Asthma persistence: intermittent Asthma complication type: uncomplicated Qualified Code(s): J45.20 - Mild intermittent asthma, uncomplicated (6) Bipolar disorder Status: Chronic (7) Cannabis dependence Status: Chronic (8) Chronic asthmatic bronchitis Status: Chronic (9) Diabetes mellitus type II, controlled Status: Chronic Qualifiers: Diabetes mellitus custodial insulin use: with custodial use Diabetes mellitus complication status: without complication Qualified Code(s): E11.9 - Type 2 diabetes mellitus without complications; 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 Comment: NO TREATMENT (10) GERD (gastroesophageal reflux disease) Status: Chronic Qualifiers: Esophagitis presence: without esophagitis Qualified Code(s): K21.9 - Gastro -esophageal reflux disease without esophagitis (11) Lupus Status: Chronic Qualifiers: Systemic lupus erythematosus type: other Systemic lupus erythematosus organ involvement: unspecified Qualified Code(s): M32.8 - Other forms of systemic lupus erythematosus Comment: NO TREATMENT (12) Seizure Status: Chronic Comment: tegretol level pending (13) Sickle cell anemia Status: Chronic Qualifiers: Sickle-cell associated disorders: without crisis Qualified Code(s): D57.1 - Sickle-cell disease without crisis (14) Schizophrenia Status: Suspected Qualifiers: Schizophrenia type: schizophreniform disorder Qualified Code(s): F20.81 - Schizophreniform disorder Comment: AUDITORY HALLLUCINATION PERIODICALLY - Initial Treatment Plan Initial Treatment Plan: Risperdal 2mg po tid. Prozac 40mg poqd. Trazodone 200mg po qhs
[2018-04-22 10:16] LABS: HEMATOCRIT 43.2 % (35.4-49); HEMOGLOBIN 14.1 GM/dL (11.7-16.9); MCH 31.6 pg (25.7-33.7); MCHC 32.5 g/dl (32.0-35.9); MEAN PLT VOLUME 9.3 fl (7.5-11.1); PLATELET COUNT 228 K/MM3 (134-434); RBC 4.45 M/mm3 (4.00-5.60); WHITE BLOOD COUNT 4.4 K/mm3 (4.0-10.0)
[2018-04-22 10:30] LABS: ALBUMIN 3.3 g/dl (3.4-5.0); ALK PHOS 63 U/L (45-117); ANION GAP 7 MMOL/L (8-16); BILIRUBIN,TOTAL 0.4 mg/dL (0.2-1); BLOOD UREA NITROGEN 13 mg/dL (7-18); CALCIUM 9.5 mg/dL (8.5-10.1); CHLORIDE 106 mmol/L (98-107); CO2 29 mmol/L (21-32); CREATININE 0.8 mg/dL (0.55-1.3); GLUCOSE,RANDOM 80 mg/dL (74-106); POTASSIUM 4.2 mmol/L (3.5-5.1); SGOT/AST 17 U/L (15-37); SGPT/ALT 33 U/L (13-61); SODIUM 142 mmol/L (136-145); TOT PROT 7.1 g/dl (6.4-8.2)
--- NOTE | 2018-04-22 10:42 | EKG ---
Test Reason : Blood Pressure : / mmHG Vent. Rate : 059 BPM Atrial Rate : 059 BPM P-R Int : 134 ms QRS Dur : 106 ms QT Int : 408 ms P-R-T Axes : 059 080 060 degrees QTc Int : 403 ms SINUS BRADYCARDIA EARLY REPOLARIZATION OTHERWISE NORMAL ECG WHEN COMPARED WITH ECG OF 02-DEC-2017 15:04, NO SIGNIFICANT CHANGE WAS FOUND Confirmed by GAYATRI CRUZ MD ([id number]) on 04/22/2018 10:42:03 AM Referred By: Confirmed By:GAYATRI CRUZ MD
[2018-04-22] MEDS: levETIRAcetam 500 MG TABLET (FP) PO SCH ×2 (10:52→22:38)
[2018-04-22] MEDS: RANITIDINE HCL 150 MG TABLET (FP) PO SCH ×2 (10:52→22:38)
[2018-04-22] MEDS: PRENATAL VITAMINS W/ FOLIC ACID TABLET (FP) PO SCH (10:53)
[2018-04-22] MEDS: carBAMazepine 200 MG TABLET PO SCH ×2 (10:53→22:38)
[2018-04-22] MEDS: INSULIN (NOVOLOG) ASPART 100 UNITS/ML 10ML VIAL SQ SCH ×2 (11:03→16:40)
[2018-04-22] MEDS: NICOTINE 21 MG/24 HOURS TOPICAL PATCH TD SCH (11:04)
--- NOTE | 2018-04-22 11:07 | PN ---
S CIWA - CIWA Score Nausea/Vomitin-No Nausea/No Vomiting Muscle Tremors: 4-Moderate,w/Arms Extend Anxiety: 4-Mod. Anxious/Guarded Agitation: 4-Moderately Restless Paroxysmal Sweats: 3 Orientation: 0-Oriented Tacttile Disturbances: 0-None Auditory Disturbances: 0-None Visual Disturbances: 0-None Headache: 1-Very Mild CIWA-Ar Total Score: 16 BHS Progress Note (SOAP) Subjective: sweats irritable shakes interrupted sleep agitation Objective: 04/22/18 11:05 Vital Signs Temperature 97.9 F 04/22/18 09:18 Pulse Rate 73 04/22/18 09:18 Respiratory Rate 18 04/22/18 09:18 Blood Pressure 125/92 04/22/18 09:18 O2 Sat by Pulse Oximetry (%) Laboratory Tests 04/21/18 04/21/18 04/21/18 12:20 15:04 16:39 WBC RBC Hgb Hct MCV MCH MCHC RDW Plt Count MPV Sodium Potassium Chloride Carbon Dioxide Anion Gap BUN Creatinine Creat Clearance w eGFR POC Glucometer 129 102 Random Glucose Calcium Total Bilirubin AST ALT Alkaline Phosphatase Total Protein Albumin Urine Color Ltyellow Urine Appearance Clear Urine pH 6.0 Ur Specific [place] 1.016 Urine Protein Negative Urine Glucose (UA) Negative Urine Ketones Negative Urine Blood Negative Urine Nitrite Negative Urine Bilirubin Negative Urine Urobilinogen Negative Ur Leukocyte Esterase Negative 04/21/18 04/22/18 04/22/18 22:22 07:00 07:00 WBC 4.4 RBC 4.45 Hgb 14.1 Hct 43.2 MCV 97.0 H MCH 31.6 MCHC 32.5 RDW 16.0 H Plt Count 228 D MPV 9.3 Sodium 142 Potassium 4.2 Chloride 106 Carbon Dioxide 29 Anion Gap 7 L BUN 13 Creatinine 0.8 Creat Clearance w eGFR > 60 POC Glucometer 103 Random Glucose 80 Calcium 9.5 Total Bilirubin 0.4 AST 17 ALT 33 Alkaline Phosphatase 63 Total Protein 7.1 Albumin 3.3 L Urine Color Urine Appearance Urine pH Ur Specific [place] Urine Protein Urine Glucose (UA) Urine Ketones Urine Blood Urine Nitrite Urine Bilirubin Urine Urobilinogen Ur Leukocyte Esterase 04/22/18 07:03 WBC RBC Hgb Hct MCV MCH MCHC RDW Plt Count MPV Sodium Potassium Chloride Carbon Dioxide Anion Gap BUN Creatinine Creat Clearance w eGFR POC Glucometer 88 Random Glucose Calcium Total Bilirubin AST ALT Alkaline Phosphatase Total Protein Albumin Urine Color Urine Appearance Urine pH Ur Specific [place] Urine Protein Urine Glucose (UA) Urine Ketones Urine Blood Urine Nitrite Urine Bilirubin Urine Urobilinogen Ur Leukocyte Esterase [id number] ambulating no acute distress Assessment: 04/22/18 11:06 withdrawal sx Plan: continue detox increase fluids levimir d/c; pt will continue on insulin s/s for coverage. Pt BGM has been on the low side.
[2018-04-22] MEDS: risperiDONE 2 MG TABLET PO SCH ×2 (13:10→22:38)
[2018-04-22] MEDS: FLUoxetine HCL 20 MG CAPSULE (FP) PO SCH (13:10)
[2018-04-22] MEDS: traZODone HCL 100 MG TABLET (FP) PO SCH (22:38)
[2018-04-22] MEDS: THIAMINE HCL 100 MG TABLET (FP) PO SCH (22:38)
[2018-04-22] MEDS: ALBUTEROL SO4 8 GM HFA INHALER IH PRN (22:42)
[2018-04-23] MEDS: risperiDONE 2 MG TABLET PO SCH ×3 (07:21→22:08)
[2018-04-23] MEDS: chlordiazePOXIDE HCL 25 MG CAPSULE PO SCH ×2 (08:03→10:55)
[2018-04-23] MEDS: INSULIN (NOVOLOG) ASPART 100 UNITS/ML 10ML VIAL SQ SCH ×3 (08:03→16:54)
[2018-04-23] MEDS: PRENATAL VITAMINS W/ FOLIC ACID TABLET (FP) PO SCH (10:55)
[2018-04-23] MEDS: RANITIDINE HCL 150 MG TABLET (FP) PO SCH ×2 (10:55→22:08)
[2018-04-23] MEDS: carBAMazepine 200 MG TABLET PO SCH ×2 (10:55→22:08)
[2018-04-23] MEDS: FLUoxetine HCL 20 MG CAPSULE (FP) PO SCH (10:55)
[2018-04-23] MEDS: levETIRAcetam 500 MG TABLET (FP) PO SCH ×2 (10:55→22:11)
[2018-04-23] MEDS: NICOTINE 21 MG/24 HOURS TOPICAL PATCH TD SCH (10:58)
--- NOTE | 2018-04-23 11:58 | PN ---
[facility] CIWA - CIWA Score Nausea/Vomitin-No Nausea/No Vomiting Muscle Tremors: 3 Anxiety: 2 Agitation: 3 Paroxysmal Sweats: 2 Orientation: 0-Oriented Tacttile Disturbances: 0-None Auditory Disturbances: 0-None Visual Disturbances: 0-None Headache: 0-None Present CIWA-Ar Total Score: 10 S Progress Note (SOAP) Subjective: sweats tired body aches Objective: 04/23/18 11:57 Vital Signs Temperature 97.7 F 04/23/18 06:29 Pulse Rate 66 04/23/18 06:29 Respiratory Rate 18 04/23/18 06:29 Blood Pressure 105/70 04/23/18 06:29 O2 Sat by Pulse Oximetry (%) Laboratory Tests 04/21/18 04/21/18 04/21/18 12:20 15:04 16:39 WBC RBC Hgb Hct MCV MCH MCHC RDW Plt Count MPV Sodium Potassium Chloride Carbon Dioxide Anion Gap BUN Creatinine Creat Clearance w eGFR POC Glucometer 129 102 Random Glucose Calcium Total Bilirubin AST ALT Alkaline Phosphatase Total Protein Albumin Urine Color Ltyellow Urine Appearance Clear Urine pH 6.0 Ur Specific [place] 1.016 Urine Protein Negative Urine Glucose (UA) Negative Urine Ketones Negative Urine Blood Negative Urine Nitrite Negative Urine Bilirubin Negative Urine Urobilinogen Negative Ur Leukocyte Esterase Negative RPR Titer 04/21/18 04/22/18 04/22/18 22:22 07:00 07:00 WBC 4.4 RBC 4.45 Hgb 14.1 Hct 43.2 MCV 97.0 H MCH 31.6 MCHC 32.5 RDW 16.0 H Plt Count 228 D MPV 9.3 Sodium 142 Potassium 4.2 Chloride 106 Carbon Dioxide 29 Anion Gap 7 L BUN 13 Creatinine 0.8 Creat Clearance w eGFR > 60 POC Glucometer 103 Random Glucose 80 Calcium 9.5 Total Bilirubin 0.4 AST 17 ALT 33 Alkaline Phosphatase 63 Total Protein 7.1 Albumin 3.3 L Urine Color Urine Appearance Urine pH Ur Specific [place] Urine Protein Urine Glucose (UA) Urine Ketones Urine Blood Urine Nitrite Urine Bilirubin Urine Urobilinogen Ur Leukocyte Esterase RPR Titer 04/22/18 04/22/18 04/22/18 07:00 07:03 11:02 WBC RBC Hgb Hct MCV MCH MCHC RDW Plt Count MPV Sodium Potassium Chloride Carbon Dioxide Anion Gap BUN Creatinine Creat Clearance w eGFR POC Glucometer 88 105 Random Glucose Calcium Total Bilirubin AST ALT Alkaline Phosphatase Total Protein Albumin Urine Color Urine Appearance Urine pH Ur Specific [place] Urine Protein Urine Glucose (UA) Urine Ketones Urine Blood Urine Nitrite Urine Bilirubin Urine Urobilinogen Ur Leukocyte Esterase RPR Titer Nonreactive 04/22/18 04/23/18 04/23/18 16:27 06:52 11:26 WBC RBC Hgb Hct MCV MCH MCHC RDW Plt Count MPV Sodium Potassium Chloride Carbon Dioxide Anion Gap BUN Creatinine Creat Clearance w eGFR POC Glucometer 114 90 139 Random Glucose Calcium Total Bilirubin AST ALT Alkaline Phosphatase Total Protein Albumin Urine Color Urine Appearance Urine pH Ur Specific [place] Urine Protein Urine Glucose (UA) Urine Ketones Urine Blood Urine Nitrite Urine Bilirubin Urine Urobilinogen Ur Leukocyte Esterase RPR Titer aaox3 ambulating no acute distress Assessment: 04/23/18 11:58 withdrawal sx Plan: continue detox increase fluids
[2018-04-23] MEDS: chlordiazePOXIDE 5 MG CAPSULE PO SCH ×2 (17:32→22:09)
[2018-04-23] MEDS: THIAMINE HCL 100 MG TABLET (FP) PO SCH (22:08)
[2018-04-23] MEDS: ALBUTEROL SO4 8 GM HFA INHALER IH PRN (22:10)
[2018-04-23] MEDS: traZODone HCL 100 MG TABLET (FP) PO SCH (22:11)
[2018-04-24] MEDS: chlordiazePOXIDE 5 MG CAPSULE PO SCH ×2 (06:24→10:50)
[2018-04-24] MEDS: risperiDONE 2 MG TABLET PO SCH ×2 (06:25→14:59)
[2018-04-24] MEDS: INSULIN (NOVOLOG) ASPART 100 UNITS/ML 10ML VIAL SQ SCH ×3 (06:42→17:13)
[2018-04-24] MEDS ORDERED: levETIRAcetam 250 MG TABLET (FP) PO ONE (09:17)
[2018-04-24] MEDS: PRENATAL VITAMINS W/ FOLIC ACID TABLET (FP) PO SCH (10:34)
[2018-04-24] MEDS: carBAMazepine 200 MG TABLET PO SCH (10:34)
[2018-04-24] MEDS: levETIRAcetam 500 MG TABLET (FP) PO SCH (10:34)
[2018-04-24] MEDS: RANITIDINE HCL 150 MG TABLET (FP) PO SCH (10:34)
[2018-04-24] MEDS: NICOTINE 21 MG/24 HOURS TOPICAL PATCH TD SCH (10:35)
[2018-04-24] MEDS: FLUoxetine HCL 20 MG CAPSULE (FP) PO SCH (10:35)
[2018-04-24] MEDS: ALBUTEROL SO4 8 GM HFA INHALER IH PRN (10:37)
--- NOTE | 2018-04-24 13:56 | PN ---
[facility] Progress Note (SOAP) Subjective: feeling much better little sweats Objective: 04/24/18 13:55 Vital Signs Temperature 98.0 F 04/24/18 13:37 Pulse Rate 70 04/24/18 13:37 Respiratory Rate 18 04/24/18 13:37 Blood Pressure 103/63 04/24/18 13:37 O2 Sat by Pulse Oximetry (%) aaox3 ambulating no acute distress Assessment: 04/24/18 13:55 mild withdrawal sx Plan: continue detox d/c in am
[2018-04-24] MEDS: chlordiazePOXIDE HCL 10 MG CAPSULE PO SCH (17:13)
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
[2018-04-25 02:38] VITALS: BP 122/80; PULSE 74; TEMP 97.9
[2018-04-25] MEDS: MELATONIN 5 MG TABLETS PO PRN (02:46)
[2018-04-25] MEDS: IBUPROFEN 400 MG TABLET (FP) PO PRN ×2 (02:46→08:16)
[2018-04-25] MEDS: traZODone HCL 100 MG TABLET (FP) PO SCH (06:25)
[2018-04-25] MEDS: carBAMazepine 200 MG TABLET PO SCH ×2 (06:26→11:41)
[2018-04-25] MEDS: levETIRAcetam 500 MG TABLET (FP) PO SCH ×2 (06:26→11:41)
[2018-04-25] MEDS: THIAMINE HCL 100 MG TABLET (FP) PO SCH (06:26)
[2018-04-25] MEDS: risperiDONE 2 MG TABLET PO SCH ×2 (06:26→08:16)
[2018-04-25] MEDS: RANITIDINE HCL 150 MG TABLET (FP) PO SCH ×2 (06:27→11:41)
[2018-04-25] MEDS: chlordiazePOXIDE HCL 10 MG CAPSULE PO SCH ×3 (06:27→11:42)
[2018-04-25] MEDS: INSULIN (NOVOLOG) ASPART 100 UNITS/ML 10ML VIAL SQ SCH ×2 (08:18→11:42)
[2018-04-25] MEDS ORDERED: AMOX TR/POT CLAV 875MG/125MG TABLETS (FP) PO ONE (08:35)
--- NOTE | 2018-04-25 08:42 | DS ---
[facility] Detox Discharge Summary Admission Date: 04/21/18 - History Present History: Alcohol Dependence - Physical Exam Results Vital Signs: Vital Signs Temperature 97.9 F 04/25/18 02:30 Pulse Rate 74 04/25/18 02:30 Respiratory Rate 18 04/25/18 02:30 Blood Pressure 122/80 04/25/18 02:30 O2 Sat by Pulse Oximetry (%) - Treatment Hospital Course: Detox Protocol Followed, Discharged Condition Good - Medication Discharge Medications: Ambulatory Orders Carbamazepine [Tegretol -] 200 mg PO BID #60 tablet 08/14/16 Albuterol Sulfate Inhaler - [Ventolin HFA Inhaler -] 2 puff IH Q4H PRN #1 inhaler 09/25/16 Naproxen [Naprosyn -] 500 mg PO BID PRN #30 tablet 09/25/16 Ranitidine [Zantac -] 150 mg PO BID #60 tablet 09/25/16 Insulin Glargine,Hum.rec.anlog [Lantus] 33 unit SQ BID 04/21/18 levETIRAcetam [Keppra -] 500 mg PO BID 04/21/18 traZODone HCL [Desyrel -] 200 mg PO HS 04/21/18 Fluoxetine HCl [Prozac -] 40 mg PO DAILY #30 capsule 04/22/18 Risperidone [Risperdal -] 2 mg PO TID #90 tablet 04/22/18 traZODone HCL [Trazodone HCl] 200 mg PO HS #30 tablet 04/22/18 - AMA Did Patient Leave Against Medical Advice: No (administrative d/c )
[2018-04-25] MEDS: NICOTINE 21 MG/24 HOURS TOPICAL PATCH TD SCH (11:41)
[2018-04-25] MEDS: PRENATAL VITAMINS W/ FOLIC ACID TABLET (FP) PO SCH (11:41)
[2018-04-25] MEDS: FLUoxetine HCL 20 MG CAPSULE (FP) PO SCH (11:41)
== END 2018-04-25 08:55 | disposition left against medical advice (07) | DRG 775 ==
LOC: YASAS 11:41 → Y6N 13:58
PROC: HZ2ZZZZ Detoxification Services for Substance Abuse Treatment (ICD-10-PCS; principal; 2018-04-21)
DX: F10.230 Alcohol dependence with withdrawal, uncomplicated (principal); F12.20 Cannabis dependence, uncomplicated; F17.210 Nicotine dependence, cigarettes, uncomplicated; F32.9 Major depressive disorder, single episode, unspecified; F91.8 Other conduct disorders; F31.9 Bipolar disorder, unspecified; F20.81 Schizophreniform disorder; I10 Essential (primary) hypertension; E11.9 Type 2 diabetes mellitus without complications; J45.20 Mild intermittent asthma, uncomplicated; K21.9 Gastro-esophageal reflux disease without esophagitis; G47.00 Insomnia, unspecified; S01.451A Open bite of right cheek and temporomandibular area, initial encounter; Y04.1XXA Assault by human bite, initial encounter; Y93.9 Activity, unspecified; Y92.238 Other place in hospital as the place of occurrence of the external cause; Z91.013 Allergy to seafood; Z79.4 Long term (current) use of insulin; Z86.69 Personal history of other diseases of the nervous system and sense organs; Z91.14 Patient's other noncompliance with medication regimen; Z91.5 Personal history of self-harm
CPT/HCPCS: 36415; 80053; 81003; 82962; 85027; 86593; 93005; 93010

== ENCOUNTER 2018-04-24 22:50 | Emergency (ER) | payer OTHER ==
[2018-04-24 23:01] VITALS: BP 135/75; PULSE 94; TEMP 98.4; BMI 26.2
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
[2018-04-24] MEDS ORDERED: AMOX TR/POT CLAV 875MG/125MG TABLETS (FP) PO ONE (23:44)
[2018-04-24] MEDS ORDERED: DIPHTH,PERTUSS(ACELL),TET 0.5 ML DISP.SYRIN IM ONE (23:44)
[2018-04-24] MEDS ORDERED: HIV POST EXPOSURE PROPHYLAXIS KIT NR ONE (23:48)
[2018-04-25] MEDS ORDERED: HIV POST EXPOSURE PROPHYLAXIS KIT PO ONE (00:21)
[2018-04-25] MEDS ORDERED: ACETAMINOPHEN 325 MG TABLET (FP) PO ONE (02:04)
[2018-04-25] MEDS ORDERED: ACETAMINOPHEN 325 MG TABLET (FP) ONE (02:05)
[2018-04-27 08:06] LABS: HBSAG SCREEN Negative (Negative); HEP A AB, IGM Negative (Negative); HEP B CORE AB, TOT Negative (Negative)
== END 2018-04-25 01:31 | disposition home or self-care (01) ==
LOC: JER 22:50
PROC: 3E0234Z Introduction of Serum, Toxoid and Vaccine into Muscle, Percutaneous Approach (ICD-10-PCS; principal; 2018-04-24)
DX: S01.451A Open bite of right cheek and temporomandibular area, initial encounter (principal); Y04.1XXA Assault by human bite, initial encounter; Y93.89 Activity, other specified; Y92.238 Other place in hospital as the place of occurrence of the external cause; Y99.8 Other external cause status; I10 Essential (primary) hypertension; E11.9 Type 2 diabetes mellitus without complications; Z79.4 Long term (current) use of insulin; Z86.69 Personal history of other diseases of the nervous system and sense organs; F10.20 Alcohol dependence, uncomplicated; F12.20 Cannabis dependence, uncomplicated
CPT/HCPCS: 36415; 84460; 86704; 86706; 86708; 86803; 87340; 87389; 90715; 99282-25

== ENCOUNTER 2020-10-17 11:45 | Inpatient (IN) | payer OTHER ==
[2020-10-17 12:24] VITALS: BMI 22.1
[2020-10-17] MEDS ORDERED: IBUPROFEN 400 MG TABLET (FP) PO PRN (17:09)
[2020-10-17] MEDS ORDERED: ACETAMINOPHEN 325 MG TABLET (FP) PO PRN ×2 (17:09)
[2020-10-17] MEDS ORDERED: NICOTINE POLACRILEX 2 MG GUM BUC PRN (17:09)
[2020-10-17] MEDS ORDERED: ONDANSETRON *ODT* 4 MG TABLET SL PRN (17:09)
[2020-10-17] MEDS ORDERED: BISMUTH SUBSALICYLATE 524 MG/30 ML UD PO PRN (17:09)
[2020-10-17] MEDS ORDERED: MAGNESIUM HYDROX 2400MG/30ML ORAL SUSPENSION 30 ML CUP PO PRN (17:09)
[2020-10-17] MEDS ORDERED: MAGNESIUM CITRATE 300 ML BOTTLE PO PRN (17:09)
[2020-10-17] MEDS ORDERED: MAG HYDROX/AL HYDROX/SIMETH 30 ML UNIT-DOSE CUP PO PRN (17:09)
[2020-10-17] MEDS ORDERED: MENTHOL/PHENOL 1 EACH UD MM PRN (17:09)
[2020-10-17] MEDS: chlordiazePOXIDE HCL 25 MG CAPSULE PO PRN (19:29)
[2020-10-17] MEDS: hydrOXYzine PAMOATE 25 MG CAPSULE (FP) PO SCH ×2 (19:30→22:23)
[2020-10-17] MEDS: THIAMINE HCL 100 MG TABLET (FP) PO SCH (22:17)
[2020-10-17] MEDS: chlordiazePOXIDE HCL 25 MG CAPSULE PO SCH (22:17)
[2020-10-17] MEDS: levETIRAcetam 500 MG TABLET (FP) PO SCH (22:17)
[2020-10-17] MEDS: MELATONIN 5 MG TABLETS PO SCH (22:18)
[2020-10-17] MEDS: INSULIN SLIDING SCALE (NOVOLOG) 1 VIAL SQ SCH (22:23)
[2020-10-18] MEDS: hydrOXYzine PAMOATE 25 MG CAPSULE (FP) PO SCH ×5 (05:31→23:28)
[2020-10-18] MEDS: chlordiazePOXIDE HCL 25 MG CAPSULE PO SCH ×5 (05:35→23:16)
[2020-10-18] MEDS: INSULIN SLIDING SCALE (NOVOLOG) 1 VIAL SQ SCH ×4 (07:30→23:28)
[2020-10-18] MEDS: NICOTINE 21 MG/24 HOURS TOPICAL PATCH TD SCH (10:12)
[2020-10-18] MEDS ORDERED: FLUOCINONIDE 0.05% CREAM (60 GM TUBE) TP SCH (10:15)
[2020-10-18] MEDS: PRENATAL VITAMINS W/ FOLIC ACID TABLET (FP) PO SCH (10:15)
[2020-10-18] MEDS: levETIRAcetam 500 MG TABLET (FP) PO SCH ×2 (10:15→23:16)
[2020-10-18] MEDS: FLUOCINONIDE 0.05% CREAM (15 GM TUBE) TP SCH ×2 (11:35→23:19)
[2020-10-18 11:37] LABS: HEMATOCRIT 44.6 % (35.4-49); HEMOGLOBIN 14.9 GM/dL (11.7-16.9); MCH 33.1 pg (25.7-33.7); MCHC 33.5 g/dl (32.0-35.9); MEAN CELL VOLUME 98.7 fl (80-96); MEAN PLT VOLUME 9.8 fl (7.5-11.1); PLATELET COUNT 230 K/MM3 (134-434); RBC 4.52 M/mm3 (4.00-5.60); RDW 14.7 % (11.9-15.9); WHITE BLOOD COUNT 4.9 K/mm3 (4.0-10.0)
[2020-10-18 11:38] LABS: ALBUMIN 3.6 g/dl (3.4-5.0); BLOOD UREA NITROGEN 9.9 mg/dL (7-18); CALCIUM 9.4 mg/dL (8.5-10.1)
[2020-10-18 11:41] LABS: CREATININE 0.8 mg/dL (0.55-1.3)
[2020-10-18 11:43] LABS: TOT PROT 7.4 g/dl (6.4-8.2)
[2020-10-18 11:45] LABS: BILIRUBIN,TOTAL 0.7 mg/dL (0.2-1)
[2020-10-18] MEDS: chlordiazePOXIDE HCL 25 MG CAPSULE PO PRN (18:57)
[2020-10-18] MEDS: THIAMINE HCL 100 MG TABLET (FP) PO SCH (23:16)
[2020-10-18] MEDS: traZODone HCL 100 MG TABLET (FP) PO SCH (23:16)
[2020-10-18] MEDS: MELATONIN 5 MG TABLETS PO SCH (23:19)
[2020-10-18] MEDS: ALBUTEROL SO4 HFA INHALER IH PRN (23:21)
[2020-10-19] MEDS: hydrOXYzine PAMOATE 25 MG CAPSULE (FP) PO SCH ×5 (06:54→22:54)
[2020-10-19] MEDS: chlordiazePOXIDE HCL 25 MG CAPSULE PO SCH ×4 (06:55→22:55)
[2020-10-19] MEDS: INSULIN SLIDING SCALE (NOVOLOG) 1 VIAL SQ SCH ×4 (07:05→22:55)
[2020-10-19] MEDS: FLUOCINONIDE 0.05% CREAM (15 GM TUBE) TP SCH ×2 (11:03→22:55)
[2020-10-19] MEDS: PRENATAL VITAMINS W/ FOLIC ACID TABLET (FP) PO SCH (11:05)
[2020-10-19] MEDS: levETIRAcetam 500 MG TABLET (FP) PO SCH ×2 (11:06→22:54)
[2020-10-19] MEDS: NICOTINE 21 MG/24 HOURS TOPICAL PATCH TD SCH (11:07)
[2020-10-19] MEDS: METHOCARBAMOL 500 MG TABLET PO PRN (17:28)
[2020-10-19] MEDS: traZODone HCL 100 MG TABLET (FP) PO SCH (22:54)
[2020-10-19] MEDS: THIAMINE HCL 100 MG TABLET (FP) PO SCH (22:54)
[2020-10-19] MEDS: MELATONIN 5 MG TABLETS PO SCH (22:55)
[2020-10-20] MEDS ORDERED: chlordiazePOXIDE HCL 10 MG CAPSULE PO PRN
[2020-10-20 05:08] LABS: SARS-CoV-2 NAA Not Detected (Not Detected)
[2020-10-20] MEDS: hydrOXYzine PAMOATE 25 MG CAPSULE (FP) PO SCH ×5 (06:42→22:29)
[2020-10-20] MEDS: chlordiazePOXIDE HCL 10 MG CAPSULE PO SCH ×4 (06:44→22:27)
[2020-10-20] MEDS: METHOCARBAMOL 500 MG TABLET PO PRN ×2 (06:46→22:27)
[2020-10-20] MEDS: INSULIN SLIDING SCALE (NOVOLOG) 1 VIAL SQ SCH ×4 (07:10→22:28)
[2020-10-20] MEDS: PRENATAL VITAMINS W/ FOLIC ACID TABLET (FP) PO SCH (10:17)
[2020-10-20] MEDS: levETIRAcetam 500 MG TABLET (FP) PO SCH ×2 (10:17→22:27)
[2020-10-20] MEDS: FLUOCINONIDE 0.05% CREAM (15 GM TUBE) TP SCH ×2 (10:18→22:28)
[2020-10-20] MEDS: NICOTINE 21 MG/24 HOURS TOPICAL PATCH TD SCH (10:18)
[2020-10-20] MEDS: THIAMINE HCL 100 MG TABLET (FP) PO SCH (22:27)
[2020-10-20] MEDS: traZODone HCL 100 MG TABLET (FP) PO SCH (22:27)
[2020-10-20] MEDS: MELATONIN 5 MG TABLETS PO SCH (22:28)
[2020-10-21] MEDS: chlordiazePOXIDE HCL 10 MG CAPSULE PO SCH ×2 (06:20→18:22)
[2020-10-21] MEDS: hydrOXYzine PAMOATE 25 MG CAPSULE (FP) PO SCH ×5 (06:21→22:14)
[2020-10-21] MEDS: METHOCARBAMOL 500 MG TABLET PO PRN ×2 (07:20→22:17)
[2020-10-21] MEDS: INSULIN SLIDING SCALE (NOVOLOG) 1 VIAL SQ SCH ×4 (07:32→22:15)
[2020-10-21] MEDS: PRENATAL VITAMINS W/ FOLIC ACID TABLET (FP) PO SCH (11:18)
[2020-10-21] MEDS: levETIRAcetam 500 MG TABLET (FP) PO SCH ×2 (11:19→22:15)
[2020-10-21] MEDS: NICOTINE 21 MG/24 HOURS TOPICAL PATCH TD SCH (11:21)
[2020-10-21] MEDS: FLUOCINONIDE 0.05% CREAM (15 GM TUBE) TP SCH ×2 (11:21→22:15)
[2020-10-21] MEDS: traZODone HCL 100 MG TABLET (FP) PO SCH (22:14)
[2020-10-21] MEDS: THIAMINE HCL 100 MG TABLET (FP) PO SCH (22:14)
[2020-10-21] MEDS: MELATONIN 5 MG TABLETS PO SCH (22:15)
[2020-10-21] MEDS: ALBUTEROL SO4 HFA INHALER IH PRN (22:18)
[2020-10-22] MEDS ORDERED: chlordiazePOXIDE HCL 10 MG CAPSULE PO ONE (05:00)
[2020-10-22] MEDS: INSULIN SLIDING SCALE (NOVOLOG) 1 VIAL SQ SCH ×2 (06:21→11:52)
[2020-10-22] MEDS: hydrOXYzine PAMOATE 25 MG CAPSULE (FP) PO SCH ×2 (06:21→11:07)
[2020-10-22] MEDS: METHOCARBAMOL 500 MG TABLET PO PRN (06:23)
[2020-10-22 09:41] VITALS: BP 120/66; PULSE 66; TEMP 98.7
[2020-10-22] MEDS: PRENATAL VITAMINS W/ FOLIC ACID TABLET (FP) PO SCH (11:06)
[2020-10-22] MEDS: FLUOCINONIDE 0.05% CREAM (15 GM TUBE) TP SCH (11:07)
[2020-10-22] MEDS: levETIRAcetam 500 MG TABLET (FP) PO SCH (11:07)
[2020-10-22] MEDS: NICOTINE 21 MG/24 HOURS TOPICAL PATCH TD SCH (11:07)
== END 2020-10-22 12:15 | disposition other institution (70) | DRG 775 ==
LOC: YASAS 11:45 → Y6N 17:39
PROVIDERS: ADMIT Allergy & Immunology; ATTEND Allergy & Immunology
PROC: HZ2ZZZZ Detoxification Services for Substance Abuse Treatment (ICD-10-PCS; principal; 2020-10-17)
DX: F10.230 Alcohol dependence with withdrawal, uncomplicated (principal); F12.20 Cannabis dependence, uncomplicated; F17.210 Nicotine dependence, cigarettes, uncomplicated; F31.9 Bipolar disorder, unspecified; F10.24 Alcohol dependence with alcohol-induced mood disorder; F10.282 Alcohol dependence with alcohol-induced sleep disorder; F43.10 Post-traumatic stress disorder, unspecified; E10.9 Type 1 diabetes mellitus without complications; Z79.4 Long term (current) use of insulin; I10 Essential (primary) hypertension; J45.909 Unspecified asthma, uncomplicated; K21.9 Gastro-esophageal reflux disease without esophagitis; L30.9 Dermatitis, unspecified; H54.62 Unqualified visual loss, left eye, normal vision right eye; H91.92 Unspecified hearing loss, left ear; Z99.89 Dependence on other enabling machines and devices; Z86.69 Personal history of other diseases of the nervous system and sense organs; Z98.890 Other specified postprocedural states; Z87.81 Personal history of (healed) traumatic fracture; Z91.011 Allergy to milk products; Z91.013 Allergy to seafood; Z91.018 Allergy to other foods
CPT/HCPCS: 36415; 80053; 82962; 85027; 86780; C9803; U0003; U0005

== ENCOUNTER 2020-10-22 12:33 | Inpatient (IN) | payer OTHER ==
[2020-10-22] MEDS ORDERED: MENTHOL/PHENOL 1 EACH UD MM PRN (14:16)
[2020-10-22] MEDS ORDERED: ACETAMINOPHEN 325 MG TABLET (FP) PO PRN (14:16)
[2020-10-22] MEDS ORDERED: guaiFENesin 200 MG/10 ML 10 ML UNIT-DOSE CUPS PO PRN (14:16)
[2020-10-22] MEDS ORDERED: NICOTINE POLACRILEX 2 MG GUM BUC PRN (14:16)
[2020-10-22] MEDS ORDERED: P-EPHED 60MG/TRIPROLIDI 2.5MG TABLET PO PRN (14:16)
[2020-10-22] MEDS ORDERED: MAGNESIUM HYDROX 2400MG/30ML ORAL SUSPENSION 30 ML CUP PO PRN (14:16)
[2020-10-22] MEDS ORDERED: IBUPROFEN 400 MG TABLET (FP) PO PRN (14:16)
[2020-10-22] MEDS ORDERED: LOPERAMIDE HCL 2 MG CAPSULE PO PRN (14:16)
[2020-10-22] MEDS ORDERED: MAG HYDROX/AL HYDROX/SIMETH 30 ML UNIT-DOSE CUP PO PRN (14:16)
[2020-10-22] MEDS ORDERED: MAGNESIUM CITRATE 300 ML BOTTLE PO PRN (14:16)
[2020-10-22] MEDS ORDERED: INSULIN (NOVOLOG) ASPART 100 UNITS/ML 10ML VIAL ONE (17:11)
[2020-10-22] MEDS: traZODone HCL 100 MG TABLET (FP) PO SCH (21:32)
[2020-10-22] MEDS: THIAMINE HCL 100 MG TABLET (FP) PO SCH (21:32)
[2020-10-22] MEDS: levETIRAcetam 500 MG TABLET (FP) PO SCH (21:32)
[2020-10-22] MEDS: MELATONIN 5 MG TABLETS PO SCH (21:32)
[2020-10-22] MEDS: FLUOCINONIDE 0.05% CREAM (15 GM TUBE) TP SCH (21:33)
[2020-10-22] MEDS: METHOCARBAMOL 500 MG TABLET PO PRN (22:18)
[2020-10-22] MEDS: INSULIN SLIDING SCALE (NOVOLOG) 1 VIAL SQ SCH (22:52)
[2020-10-23] MEDS: INSULIN SLIDING SCALE (NOVOLOG) 1 VIAL SQ SCH ×4 (06:32→21:11)
[2020-10-23] MEDS: PRENATAL VITAMINS W/ FOLIC ACID TABLET (FP) PO SCH (09:59)
[2020-10-23] MEDS: levETIRAcetam 500 MG TABLET (FP) PO SCH ×2 (09:59→21:12)
[2020-10-23] MEDS: NICOTINE 21 MG/24 HOURS TOPICAL PATCH TD SCH (09:59)
[2020-10-23] MEDS: FLUOCINONIDE 0.05% CREAM (15 GM TUBE) TP SCH ×2 (09:59→21:13)
[2020-10-23] MEDS ORDERED: NICOTINE 7 MG/24 HOURS TOPICAL PATCH TD SCH (10:00)
[2020-10-23] MEDS ORDERED: MASKS NR ONE (17:34)
[2020-10-23] MEDS: THIAMINE HCL 100 MG TABLET (FP) PO SCH (21:12)
[2020-10-23] MEDS: MELATONIN 5 MG TABLETS PO SCH (21:12)
[2020-10-23] MEDS: traZODone HCL 100 MG TABLET (FP) PO SCH (21:12)
[2020-10-23] MEDS: METHOCARBAMOL 500 MG TABLET PO PRN (21:13)
[2020-10-24] MEDS: INSULIN SLIDING SCALE (NOVOLOG) 1 VIAL SQ SCH ×4 (06:20→21:03)
[2020-10-24] MEDS: FLUOCINONIDE 0.05% CREAM (15 GM TUBE) TP SCH ×2 (09:56→21:03)
[2020-10-24] MEDS: levETIRAcetam 500 MG TABLET (FP) PO SCH ×2 (09:56→21:03)
[2020-10-24] MEDS: PRENATAL VITAMINS W/ FOLIC ACID TABLET (FP) PO SCH (09:56)
[2020-10-24] MEDS: NICOTINE 21 MG/24 HOURS TOPICAL PATCH TD SCH (09:56)
[2020-10-24] MEDS: ALBUTEROL SO4 HFA INHALER IH PRN (16:08)
[2020-10-24] MEDS: MELATONIN 5 MG TABLETS PO SCH (21:03)
[2020-10-24] MEDS: METHOCARBAMOL 500 MG TABLET PO PRN (21:03)
[2020-10-24] MEDS: traZODone HCL 100 MG TABLET (FP) PO SCH (21:03)
[2020-10-24] MEDS: THIAMINE HCL 100 MG TABLET (FP) PO SCH (21:03)
[2020-10-25] MEDS: INSULIN SLIDING SCALE (NOVOLOG) 1 VIAL SQ SCH ×4 (07:01→21:33)
[2020-10-25] MEDS: NICOTINE 21 MG/24 HOURS TOPICAL PATCH TD SCH (10:28)
[2020-10-25] MEDS: PRENATAL VITAMINS W/ FOLIC ACID TABLET (FP) PO SCH (10:28)
[2020-10-25] MEDS: levETIRAcetam 500 MG TABLET (FP) PO SCH ×2 (10:28→21:32)
[2020-10-25] MEDS: FLUOCINONIDE 0.05% CREAM (15 GM TUBE) TP SCH ×2 (10:28→21:32)
[2020-10-25] MEDS: ALBUTEROL SO4 HFA INHALER IH PRN (10:28)
[2020-10-25] MEDS: METHOCARBAMOL 500 MG TABLET PO PRN (10:28)
[2020-10-25] MEDS: MELATONIN 5 MG TABLETS PO SCH (21:32)
[2020-10-25] MEDS: traZODone HCL 100 MG TABLET (FP) PO SCH (21:32)
[2020-10-25] MEDS: THIAMINE HCL 100 MG TABLET (FP) PO SCH (21:32)
[2020-10-25] MEDS: CYCLOBENZAPRINE HCL 5 MG TABLET PO SCH (21:32)
[2020-10-26 06:06] LABS: SARS-CoV-2 NAA Not Detected (Not Detected)
[2020-10-26] MEDS: CYCLOBENZAPRINE HCL 5 MG TABLET PO SCH ×3 (06:54→21:00)
[2020-10-26] MEDS: INSULIN SLIDING SCALE (NOVOLOG) 1 VIAL SQ SCH ×4 (06:57→21:01)
[2020-10-26] MEDS: PRENATAL VITAMINS W/ FOLIC ACID TABLET (FP) PO SCH (10:26)
[2020-10-26] MEDS: FLUOCINONIDE 0.05% CREAM (15 GM TUBE) TP SCH ×2 (10:27→21:02)
[2020-10-26] MEDS: levETIRAcetam 500 MG TABLET (FP) PO SCH ×2 (10:27→21:00)
[2020-10-26] MEDS: NICOTINE 21 MG/24 HOURS TOPICAL PATCH TD SCH (10:27)
[2020-10-26] MEDS ORDERED: LIDOCAINE 5% TOPICAL PATCH TP PRN (14:43)
[2020-10-26] MEDS: THIAMINE HCL 100 MG TABLET (FP) PO SCH (21:00)
[2020-10-26] MEDS: traZODone HCL 100 MG TABLET (FP) PO SCH (21:00)
[2020-10-26] MEDS: MELATONIN 5 MG TABLETS PO SCH (21:00)
[2020-10-26] MEDS: LIDOCAINE PATCH REMOVAL MC SCH (21:01)
[2020-10-27] MEDS: CYCLOBENZAPRINE HCL 5 MG TABLET PO SCH ×3 (06:17→21:28)
[2020-10-27] MEDS: INSULIN SLIDING SCALE (NOVOLOG) 1 VIAL SQ SCH ×4 (06:17→21:30)
[2020-10-27] MEDS: PRENATAL VITAMINS W/ FOLIC ACID TABLET (FP) PO SCH (10:28)
[2020-10-27] MEDS: levETIRAcetam 500 MG TABLET (FP) PO SCH ×2 (10:28→21:29)
[2020-10-27] MEDS: NICOTINE 21 MG/24 HOURS TOPICAL PATCH TD SCH (10:28)
[2020-10-27] MEDS: FLUOCINONIDE 0.05% CREAM (15 GM TUBE) TP SCH ×2 (10:31→21:30)
[2020-10-27] MEDS: hydrOXYzine PAMOATE 25 MG CAPSULE (FP) PO PRN ×2 (11:24→23:07)
[2020-10-27] MEDS: THIAMINE HCL 100 MG TABLET (FP) PO SCH (21:29)
[2020-10-27] MEDS: LIDOCAINE PATCH REMOVAL MC SCH (21:29)
[2020-10-27] MEDS: traZODone HCL 100 MG TABLET (FP) PO SCH (21:29)
[2020-10-27] MEDS: MELATONIN 5 MG TABLETS PO SCH (21:29)
[2020-10-28] MEDS: CYCLOBENZAPRINE HCL 5 MG TABLET PO SCH ×3 (06:29→21:18)
[2020-10-28] MEDS: INSULIN SLIDING SCALE (NOVOLOG) 1 VIAL SQ SCH ×4 (06:31→21:20)
[2020-10-28] MEDS: levETIRAcetam 500 MG TABLET (FP) PO SCH ×2 (10:52→21:18)
[2020-10-28] MEDS: hydrOXYzine PAMOATE 25 MG CAPSULE (FP) PO PRN ×2 (10:52→15:13)
[2020-10-28] MEDS: PRENATAL VITAMINS W/ FOLIC ACID TABLET (FP) PO SCH (10:52)
[2020-10-28] MEDS: FLUOCINONIDE 0.05% CREAM (15 GM TUBE) TP SCH ×2 (10:53→21:20)
[2020-10-28] MEDS: NICOTINE 21 MG/24 HOURS TOPICAL PATCH TD SCH (10:53)
[2020-10-28] MEDS: LIDOCAINE 5% TOPICAL PATCH TP SCH (10:53)
[2020-10-28] MEDS: THIAMINE HCL 100 MG TABLET (FP) PO SCH (21:18)
[2020-10-28] MEDS: MELATONIN 5 MG TABLETS PO SCH (21:18)
[2020-10-28] MEDS: traZODone HCL 100 MG TABLET (FP) PO SCH (21:18)
[2020-10-28] MEDS: LIDOCAINE PATCH REMOVAL MC SCH (21:20)
[2020-10-29] MEDS: CYCLOBENZAPRINE HCL 5 MG TABLET PO SCH ×3 (06:47→21:36)
[2020-10-29] MEDS: INSULIN SLIDING SCALE (NOVOLOG) 1 VIAL SQ SCH ×4 (06:49→21:39)
[2020-10-29] MEDS: LIDOCAINE 5% TOPICAL PATCH TP SCH (10:29)
[2020-10-29] MEDS: levETIRAcetam 500 MG TABLET (FP) PO SCH ×2 (10:29→21:36)
[2020-10-29] MEDS: NICOTINE 21 MG/24 HOURS TOPICAL PATCH TD SCH (10:29)
[2020-10-29] MEDS: hydrOXYzine PAMOATE 25 MG CAPSULE (FP) PO PRN ×2 (10:29→15:42)
[2020-10-29] MEDS: PRENATAL VITAMINS W/ FOLIC ACID TABLET (FP) PO SCH (10:29)
[2020-10-29] MEDS: FLUOCINONIDE 0.05% CREAM (15 GM TUBE) TP SCH ×2 (10:30→21:36)
[2020-10-29] MEDS: LIDOCAINE PATCH REMOVAL MC SCH (21:36)
[2020-10-29] MEDS: MELATONIN 5 MG TABLETS PO SCH (21:36)
[2020-10-29] MEDS: traZODone HCL 100 MG TABLET (FP) PO SCH (21:36)
[2020-10-29] MEDS: THIAMINE HCL 100 MG TABLET (FP) PO SCH (21:36)
[2020-10-30] MEDS: CYCLOBENZAPRINE HCL 5 MG TABLET PO SCH ×3 (05:20→21:15)
[2020-10-30] MEDS: INSULIN SLIDING SCALE (NOVOLOG) 1 VIAL SQ SCH ×4 (06:12→21:37)
[2020-10-30] MEDS: NICOTINE 21 MG/24 HOURS TOPICAL PATCH TD SCH (09:46)
[2020-10-30] MEDS: FLUOCINONIDE 0.05% CREAM (15 GM TUBE) TP SCH ×2 (09:46→21:15)
[2020-10-30] MEDS: levETIRAcetam 500 MG TABLET (FP) PO SCH ×2 (09:46→21:15)
[2020-10-30] MEDS: hydrOXYzine PAMOATE 25 MG CAPSULE (FP) PO PRN ×3 (09:46→21:16)
[2020-10-30] MEDS: LIDOCAINE 5% TOPICAL PATCH TP SCH (09:46)
[2020-10-30] MEDS: PRENATAL VITAMINS W/ FOLIC ACID TABLET (FP) PO SCH (09:46)
[2020-10-30] MEDS: MELATONIN 5 MG TABLETS PO SCH (21:14)
[2020-10-30] MEDS: traZODone HCL 100 MG TABLET (FP) PO SCH (21:15)
[2020-10-30] MEDS: THIAMINE HCL 100 MG TABLET (FP) PO SCH (21:15)
[2020-10-30] MEDS: LIDOCAINE PATCH REMOVAL MC SCH (21:37)
[2020-10-31] MEDS ORDERED: INSULIN (NOVOLOG) ASPART 100 UNITS/ML 10ML VIAL ONE (06:03)
[2020-10-31] MEDS: CYCLOBENZAPRINE HCL 5 MG TABLET PO SCH ×3 (06:31→21:29)
[2020-10-31] MEDS: INSULIN SLIDING SCALE (NOVOLOG) 1 VIAL SQ SCH ×4 (07:47→21:29)
[2020-10-31] MEDS: FLUOCINONIDE 0.05% CREAM (15 GM TUBE) TP SCH ×2 (10:32→21:29)
[2020-10-31] MEDS: levETIRAcetam 500 MG TABLET (FP) PO SCH ×2 (10:32→21:29)
[2020-10-31] MEDS: hydrOXYzine PAMOATE 25 MG CAPSULE (FP) PO PRN ×3 (10:32→21:30)
[2020-10-31] MEDS: NICOTINE 21 MG/24 HOURS TOPICAL PATCH TD SCH (10:32)
[2020-10-31] MEDS: PRENATAL VITAMINS W/ FOLIC ACID TABLET (FP) PO SCH (10:32)
[2020-10-31] MEDS: LIDOCAINE 5% TOPICAL PATCH TP SCH (10:32)
[2020-10-31] MEDS: THIAMINE HCL 100 MG TABLET (FP) PO SCH (21:29)
[2020-10-31] MEDS: traZODone HCL 100 MG TABLET (FP) PO SCH (21:29)
[2020-10-31] MEDS: LIDOCAINE PATCH REMOVAL MC SCH (21:30)
[2020-10-31] MEDS: MELATONIN 5 MG TABLETS PO SCH (21:40)
[2020-11-01] MEDS: CYCLOBENZAPRINE HCL 5 MG TABLET PO SCH (06:34)
[2020-11-01] MEDS: INSULIN SLIDING SCALE (NOVOLOG) 1 VIAL SQ SCH ×3 (06:38→21:07)
[2020-11-01] MEDS: hydrOXYzine PAMOATE 25 MG CAPSULE (FP) PO PRN ×3 (10:05→21:07)
[2020-11-01] MEDS: PRENATAL VITAMINS W/ FOLIC ACID TABLET (FP) PO SCH (10:05)
[2020-11-01] MEDS: FLUOCINONIDE 0.05% CREAM (15 GM TUBE) TP SCH ×2 (10:05→21:08)
[2020-11-01] MEDS: levETIRAcetam 500 MG TABLET (FP) PO SCH ×2 (10:05→21:06)
[2020-11-01] MEDS: NICOTINE 21 MG/24 HOURS TOPICAL PATCH TD SCH (10:05)
[2020-11-01] MEDS: LIDOCAINE 5% TOPICAL PATCH TP SCH (10:05)
[2020-11-01] MEDS: MELATONIN 5 MG TABLETS PO SCH (21:06)
[2020-11-01] MEDS: THIAMINE HCL 100 MG TABLET (FP) PO SCH (21:06)
[2020-11-01] MEDS: traZODone HCL 100 MG TABLET (FP) PO SCH (21:06)
[2020-11-01] MEDS: CYCLOBENZAPRINE HCL 10 MG TABLET (FP) PO SCH (21:07)
[2020-11-01] MEDS: LIDOCAINE PATCH REMOVAL MC SCH (21:08)
[2020-11-01] MEDS ORDERED: CYCLOBENZAPRINE HCL 10 MG TABLET (FP) PO SCH (22:00)
[2020-11-02] MEDS: CYCLOBENZAPRINE HCL 10 MG TABLET (FP) PO SCH ×3 (06:25→21:13)
[2020-11-02] MEDS: INSULIN SLIDING SCALE (NOVOLOG) 1 VIAL SQ SCH ×4 (06:27→21:15)
[2020-11-02] MEDS ORDERED: INSULIN SLIDING SCALE (NOVOLOG) 1 VIAL SQ SCH (07:00)
[2020-11-02] MEDS: PRENATAL VITAMINS W/ FOLIC ACID TABLET (FP) PO SCH (10:30)
[2020-11-02] MEDS: levETIRAcetam 500 MG TABLET (FP) PO SCH ×2 (10:30→21:13)
[2020-11-02] MEDS: LIDOCAINE 5% TOPICAL PATCH TP SCH (10:32)
[2020-11-02] MEDS: hydrOXYzine PAMOATE 25 MG CAPSULE (FP) PO PRN ×3 (10:32→21:14)
[2020-11-02] MEDS: NICOTINE 21 MG/24 HOURS TOPICAL PATCH TD SCH (10:33)
[2020-11-02] MEDS: FLUOCINONIDE 0.05% CREAM (15 GM TUBE) TP SCH ×2 (10:33→21:15)
[2020-11-02] MEDS: traZODone HCL 100 MG TABLET (FP) PO SCH (21:13)
[2020-11-02] MEDS: MELATONIN 5 MG TABLETS PO SCH (21:13)
[2020-11-02] MEDS: THIAMINE HCL 100 MG TABLET (FP) PO SCH (21:13)
[2020-11-02] MEDS: LIDOCAINE PATCH REMOVAL MC SCH (21:15)
[2020-11-03] MEDS: CYCLOBENZAPRINE HCL 10 MG TABLET (FP) PO SCH ×3 (06:23→21:15)
[2020-11-03] MEDS: hydrOXYzine PAMOATE 25 MG CAPSULE (FP) PO PRN ×4 (06:23→21:16)
[2020-11-03] MEDS: INSULIN SLIDING SCALE (NOVOLOG) 1 VIAL SQ SCH ×4 (06:27→21:17)
[2020-11-03] MEDS: PRENATAL VITAMINS W/ FOLIC ACID TABLET (FP) PO SCH (10:26)
[2020-11-03] MEDS: LIDOCAINE 5% TOPICAL PATCH TP SCH (10:27)
[2020-11-03] MEDS: NICOTINE 21 MG/24 HOURS TOPICAL PATCH TD SCH (10:27)
[2020-11-03] MEDS: levETIRAcetam 500 MG TABLET (FP) PO SCH ×2 (10:27→21:15)
[2020-11-03] MEDS: FLUOCINONIDE 0.05% CREAM (15 GM TUBE) TP SCH ×2 (10:27→21:17)
[2020-11-03] MEDS: ALBUTEROL SO4 HFA INHALER IH PRN (10:29)
[2020-11-03] MEDS: traZODone HCL 100 MG TABLET (FP) PO SCH (21:15)
[2020-11-03] MEDS: MELATONIN 5 MG TABLETS PO SCH (21:15)
[2020-11-03] MEDS: THIAMINE HCL 100 MG TABLET (FP) PO SCH (21:16)
[2020-11-03] MEDS: LIDOCAINE PATCH REMOVAL MC SCH (21:17)
[2020-11-04] MEDS: CYCLOBENZAPRINE HCL 10 MG TABLET (FP) PO SCH ×3 (06:26→21:18)
[2020-11-04] MEDS: hydrOXYzine PAMOATE 25 MG CAPSULE (FP) PO PRN ×4 (06:26→21:19)
[2020-11-04] MEDS: INSULIN SLIDING SCALE (NOVOLOG) 1 VIAL SQ SCH ×4 (06:27→21:19)
[2020-11-04] MEDS: NICOTINE 21 MG/24 HOURS TOPICAL PATCH TD SCH (10:17)
[2020-11-04] MEDS: levETIRAcetam 500 MG TABLET (FP) PO SCH ×2 (10:17→21:18)
[2020-11-04] MEDS: PRENATAL VITAMINS W/ FOLIC ACID TABLET (FP) PO SCH (10:17)
[2020-11-04] MEDS: LIDOCAINE 5% TOPICAL PATCH TP SCH (10:17)
[2020-11-04] MEDS: FLUOCINONIDE 0.05% CREAM (15 GM TUBE) TP SCH ×2 (10:17→21:19)
[2020-11-04] MEDS: ALBUTEROL SO4 HFA INHALER IH PRN (10:18)
[2020-11-04] MEDS: LIDOCAINE PATCH REMOVAL MC SCH (21:17)
[2020-11-04] MEDS: MELATONIN 5 MG TABLETS PO SCH (21:18)
[2020-11-04] MEDS: traZODone HCL 100 MG TABLET (FP) PO SCH (21:18)
[2020-11-04] MEDS: THIAMINE HCL 100 MG TABLET (FP) PO SCH (21:18)
[2020-11-05] MEDS: hydrOXYzine PAMOATE 25 MG CAPSULE (FP) PO PRN ×4 (03:15→21:00)
[2020-11-05] MEDS: CYCLOBENZAPRINE HCL 10 MG TABLET (FP) PO SCH ×3 (06:48→21:00)
[2020-11-05] MEDS: INSULIN SLIDING SCALE (NOVOLOG) 1 VIAL SQ SCH ×4 (06:48→21:42)
[2020-11-05] MEDS: levETIRAcetam 500 MG TABLET (FP) PO SCH ×2 (09:49→21:00)
[2020-11-05] MEDS: LIDOCAINE 5% TOPICAL PATCH TP SCH (09:49)
[2020-11-05] MEDS: NICOTINE 21 MG/24 HOURS TOPICAL PATCH TD SCH (09:49)
[2020-11-05] MEDS: PRENATAL VITAMINS W/ FOLIC ACID TABLET (FP) PO SCH (09:49)
[2020-11-05] MEDS: FLUOCINONIDE 0.05% CREAM (15 GM TUBE) TP SCH ×2 (09:51→21:01)
[2020-11-05] MEDS ORDERED: diphenhydrAMINE HCL 25 MG CAPSULE (FP) PO ONE (20:05)
[2020-11-05] MEDS: THIAMINE HCL 100 MG TABLET (FP) PO SCH (21:00)
[2020-11-05] MEDS: MELATONIN 5 MG TABLETS PO SCH (21:00)
[2020-11-05] MEDS: traZODone HCL 100 MG TABLET (FP) PO SCH (21:00)
[2020-11-05] MEDS: LIDOCAINE PATCH REMOVAL MC SCH (21:01)
[2020-11-06] MEDS ORDERED: INSULIN (NOVOLOG) ASPART 100 UNITS/ML 10ML VIAL ONE ×2 (05:59→21:29)
[2020-11-06] MEDS: CYCLOBENZAPRINE HCL 10 MG TABLET (FP) PO SCH ×3 (06:53→21:22)
[2020-11-06] MEDS: hydrOXYzine PAMOATE 25 MG CAPSULE (FP) PO PRN ×2 (06:56→21:25)
[2020-11-06] MEDS: INSULIN SLIDING SCALE (NOVOLOG) 1 VIAL SQ SCH ×5 (06:58→21:31)
[2020-11-06] MEDS: LIDOCAINE 5% TOPICAL PATCH TP SCH (11:41)
[2020-11-06] MEDS: NICOTINE 21 MG/24 HOURS TOPICAL PATCH TD SCH (11:41)
[2020-11-06] MEDS: PRENATAL VITAMINS W/ FOLIC ACID TABLET (FP) PO SCH (11:41)
[2020-11-06] MEDS: levETIRAcetam 500 MG TABLET (FP) PO SCH ×2 (11:41→21:22)
[2020-11-06] MEDS: diphenhydrAMINE HCL 25 MG CAPSULE (FP) PO PRN (11:43)
[2020-11-06] MEDS: FLUOCINONIDE 0.05% CREAM (15 GM TUBE) TP SCH ×2 (11:48→21:32)
[2020-11-06] MEDS ORDERED: PT OWN MED DRAWER 7, Y5N ONE (19:08)
[2020-11-06] MEDS: THIAMINE HCL 100 MG TABLET (FP) PO SCH (21:22)
[2020-11-06] MEDS: MELATONIN 5 MG TABLETS PO SCH (21:22)
[2020-11-06] MEDS: traZODone HCL 100 MG TABLET (FP) PO SCH (21:22)
[2020-11-06] MEDS: LIDOCAINE PATCH REMOVAL MC SCH (21:23)
[2020-11-07] MEDS: hydrOXYzine PAMOATE 25 MG CAPSULE (FP) PO PRN ×3 (06:06→21:06)
[2020-11-07] MEDS: CYCLOBENZAPRINE HCL 10 MG TABLET (FP) PO SCH ×3 (06:06→21:05)
[2020-11-07] MEDS: INSULIN SLIDING SCALE (NOVOLOG) 1 VIAL SQ SCH ×4 (06:25→21:07)
[2020-11-07] MEDS: PRENATAL VITAMINS W/ FOLIC ACID TABLET (FP) PO SCH (12:03)
[2020-11-07] MEDS: NICOTINE 21 MG/24 HOURS TOPICAL PATCH TD SCH (12:03)
[2020-11-07] MEDS: LIDOCAINE 5% TOPICAL PATCH TP SCH (12:03)
[2020-11-07] MEDS: FLUOCINONIDE 0.05% CREAM (15 GM TUBE) TP SCH ×2 (12:04→21:07)
[2020-11-07] MEDS: levETIRAcetam 500 MG TABLET (FP) PO SCH ×2 (12:04→21:05)
[2020-11-07] MEDS: MELATONIN 5 MG TABLETS PO SCH (21:05)
[2020-11-07] MEDS: THIAMINE HCL 100 MG TABLET (FP) PO SCH (21:05)
[2020-11-07] MEDS: traZODone HCL 100 MG TABLET (FP) PO SCH (21:05)
[2020-11-07] MEDS: LIDOCAINE PATCH REMOVAL MC SCH (21:07)
[2020-11-08] MEDS: hydrOXYzine PAMOATE 25 MG CAPSULE (FP) PO PRN ×4 (06:04→21:46)
[2020-11-08] MEDS: CYCLOBENZAPRINE HCL 10 MG TABLET (FP) PO SCH ×3 (06:04→21:45)
[2020-11-08] MEDS: INSULIN SLIDING SCALE (NOVOLOG) 1 VIAL SQ SCH ×4 (06:07→21:49)
[2020-11-08] MEDS: NICOTINE 21 MG/24 HOURS TOPICAL PATCH TD SCH (09:51)
[2020-11-08] MEDS: levETIRAcetam 500 MG TABLET (FP) PO SCH ×2 (09:51→21:45)
[2020-11-08] MEDS: PRENATAL VITAMINS W/ FOLIC ACID TABLET (FP) PO SCH (09:51)
[2020-11-08] MEDS: LIDOCAINE 5% TOPICAL PATCH TP SCH (09:51)
[2020-11-08] MEDS: FLUOCINONIDE 0.05% CREAM (15 GM TUBE) TP SCH ×2 (09:53→21:45)
[2020-11-08] MEDS: MELATONIN 5 MG TABLETS PO SCH (21:45)
[2020-11-08] MEDS: traZODone HCL 100 MG TABLET (FP) PO SCH (21:45)
[2020-11-08] MEDS: THIAMINE HCL 100 MG TABLET (FP) PO SCH (21:45)
[2020-11-08] MEDS: LIDOCAINE PATCH REMOVAL MC SCH (21:46)
[2020-11-08] MEDS: diphenhydrAMINE HCL 25 MG CAPSULE (FP) PO PRN (23:00)
[2020-11-09] MEDS: CYCLOBENZAPRINE HCL 10 MG TABLET (FP) PO SCH ×3 (06:38→21:22)
[2020-11-09] MEDS: INSULIN SLIDING SCALE (NOVOLOG) 1 VIAL SQ SCH ×4 (06:46→21:23)
[2020-11-09] MEDS: PRENATAL VITAMINS W/ FOLIC ACID TABLET (FP) PO SCH (09:47)
[2020-11-09] MEDS: NICOTINE 21 MG/24 HOURS TOPICAL PATCH TD SCH (09:47)
[2020-11-09] MEDS: LIDOCAINE 5% TOPICAL PATCH TP SCH (09:47)
[2020-11-09] MEDS: hydrOXYzine PAMOATE 25 MG CAPSULE (FP) PO PRN ×3 (09:48→21:22)
[2020-11-09] MEDS: FLUOCINONIDE 0.05% CREAM (15 GM TUBE) TP SCH ×2 (09:48→21:23)
[2020-11-09] MEDS: levETIRAcetam 500 MG TABLET (FP) PO SCH ×2 (09:48→21:22)
[2020-11-09] MEDS: THIAMINE HCL 100 MG TABLET (FP) PO SCH (21:22)
[2020-11-09] MEDS: MELATONIN 5 MG TABLETS PO SCH (21:22)
[2020-11-09] MEDS: traZODone HCL 100 MG TABLET (FP) PO SCH (21:22)
[2020-11-09] MEDS: LIDOCAINE PATCH REMOVAL MC SCH (21:23)
[2020-11-10] MEDS: hydrOXYzine PAMOATE 25 MG CAPSULE (FP) PO PRN ×2 (06:53→10:37)
[2020-11-10] MEDS: CYCLOBENZAPRINE HCL 10 MG TABLET (FP) PO SCH ×4 (06:53→21:19)
[2020-11-10] MEDS: INSULIN SLIDING SCALE (NOVOLOG) 1 VIAL SQ SCH ×4 (06:56→21:22)
[2020-11-10] MEDS: NICOTINE 21 MG/24 HOURS TOPICAL PATCH TD SCH (10:37)
[2020-11-10] MEDS: PRENATAL VITAMINS W/ FOLIC ACID TABLET (FP) PO SCH (10:37)
[2020-11-10] MEDS: levETIRAcetam 500 MG TABLET (FP) PO SCH ×2 (10:37→21:19)
[2020-11-10] MEDS: LIDOCAINE 5% TOPICAL PATCH TP SCH (10:37)
[2020-11-10] MEDS: ALBUTEROL SO4 HFA INHALER IH PRN (10:39)
[2020-11-10] MEDS: diphenhydrAMINE HCL 25 MG CAPSULE (FP) PO PRN (10:40)
[2020-11-10] MEDS: FLUOCINONIDE 0.05% CREAM (15 GM TUBE) TP SCH ×2 (10:41→21:22)
[2020-11-10] MEDS ORDERED: CYCLOBENZAPRINE HCL 10 MG TABLET (FP) PO SCH (14:42)
[2020-11-10] MEDS ORDERED: diphenhydrAMINE HCL 25 MG CAPSULE (FP) PO PRN ×2 (14:44→14:46)
[2020-11-10] MEDS: MELATONIN 5 MG TABLETS PO SCH (21:19)
[2020-11-10] MEDS: traZODone HCL 100 MG TABLET (FP) PO SCH (21:19)
[2020-11-10] MEDS: THIAMINE HCL 100 MG TABLET (FP) PO SCH (21:19)
[2020-11-10] MEDS: LIDOCAINE PATCH REMOVAL MC SCH (21:22)
[2020-11-11] MEDS: CYCLOBENZAPRINE HCL 10 MG TABLET (FP) PO SCH ×3 (06:17→21:47)
[2020-11-11] MEDS: hydrOXYzine PAMOATE 25 MG CAPSULE (FP) PO PRN (06:17)
[2020-11-11] MEDS: INSULIN SLIDING SCALE (NOVOLOG) 1 VIAL SQ SCH ×4 (06:18→21:50)
[2020-11-11] MEDS: LIDOCAINE 5% TOPICAL PATCH TP SCH (10:31)
[2020-11-11] MEDS: PRENATAL VITAMINS W/ FOLIC ACID TABLET (FP) PO SCH (10:31)
[2020-11-11] MEDS: levETIRAcetam 500 MG TABLET (FP) PO SCH ×2 (10:31→21:47)
[2020-11-11] MEDS: FLUOCINONIDE 0.05% CREAM (15 GM TUBE) TP SCH ×2 (10:31→21:50)
[2020-11-11] MEDS: NICOTINE 21 MG/24 HOURS TOPICAL PATCH TD SCH (10:32)
[2020-11-11] MEDS: MELATONIN 5 MG TABLETS PO SCH (21:47)
[2020-11-11] MEDS: traZODone HCL 100 MG TABLET (FP) PO SCH (21:47)
[2020-11-11] MEDS: THIAMINE HCL 100 MG TABLET (FP) PO SCH (21:47)
[2020-11-11] MEDS: LIDOCAINE PATCH REMOVAL MC SCH (21:50)
[2020-11-12] MEDS: hydrOXYzine PAMOATE 25 MG CAPSULE (FP) PO PRN (06:52)
[2020-11-12] MEDS: CYCLOBENZAPRINE HCL 10 MG TABLET (FP) PO SCH (06:52)
[2020-11-12] MEDS: INSULIN SLIDING SCALE (NOVOLOG) 1 VIAL SQ SCH (07:06)
[2020-11-12 07:08] VITALS: BP 120/82; PULSE 94; TEMP 97.5
[2020-11-12] MEDS: levETIRAcetam 500 MG TABLET (FP) PO SCH (09:38)
[2020-11-12] MEDS: FLUOCINONIDE 0.05% CREAM (15 GM TUBE) TP SCH (09:39)
[2020-11-12] MEDS: NICOTINE 21 MG/24 HOURS TOPICAL PATCH TD SCH (09:39)
[2020-11-12] MEDS: PRENATAL VITAMINS W/ FOLIC ACID TABLET (FP) PO SCH (09:39)
[2020-11-12] MEDS: LIDOCAINE 5% TOPICAL PATCH TP SCH (09:39)
[2020-11-15] MEDS ORDERED: CYCLOBENZAPRINE HCL 10 MG TABLET (FP) PO SCH (14:42)
== END 2020-11-12 09:55 | disposition home or self-care (01) | DRG 772 ==
LOC: YASAS 12:33 → Y3W 12:35 → Y3E 10-24 15:21 → Y3W 10-24 15:22
PROVIDERS: ADMIT Allergy & Immunology; ATTEND Allergy & Immunology
PROC: HZ42ZZZ Group Counseling for Substance Abuse Treatment, Cognitive-Behavioral (ICD-10-PCS; principal; 2020-10-22)
DX: F10.20 Alcohol dependence, uncomplicated (principal); F12.20 Cannabis dependence, uncomplicated; F17.210 Nicotine dependence, cigarettes, uncomplicated; F31.9 Bipolar disorder, unspecified; F43.10 Post-traumatic stress disorder, unspecified; E11.9 Type 2 diabetes mellitus without complications; Z79.4 Long term (current) use of insulin; G40.909 Epilepsy, unspecified, not intractable, without status epilepticus; H91.92 Unspecified hearing loss, left ear; H54.62 Unqualified visual loss, left eye, normal vision right eye; M54.5 Low back pain; G89.29 Other chronic pain; Z87.81 Personal history of (healed) traumatic fracture; Z98.890 Other specified postprocedural states; Z91.011 Allergy to milk products; Z91.013 Allergy to seafood; Z91.018 Allergy to other foods
CPT/HCPCS: 82962; 93005; 93010; C9803; U0003; U0005

== ENCOUNTER 2024-11-13 20:27 | Inpatient (IN) | payer OTHER ==
[2024-11-13 21:41] VITALS: BMI 19.3
[2024-11-13] MEDS ORDERED: ONDANSETRON *ODT* 4 MG TABLET SL PRN (22:02)
[2024-11-13] MEDS ORDERED: ACETAMINOPHEN 325 MG TABLET (FP) PO PRN (22:02)
[2024-11-13] MEDS ORDERED: NALOXONE (NARCAN) HCL 4 MG/0.1 ML SPRAY NS PRN (22:02)
[2024-11-13] MEDS ORDERED: LOPERAMIDE HCL 2 MG CAPSULE PO PRN (22:02)
[2024-11-13] MEDS ORDERED: DICYCLOMINE HCL 10 MG CAPSULE PO PRN (22:02)
[2024-11-13] MEDS ORDERED: POLYETHYLENE GLYCOL (HEALTHYLAX) 3350 17 GM PACKET PO PRN (22:02)
[2024-11-13] MEDS ORDERED: MAGNESIUM HYDROX 2400MG/30ML ORAL SUSPENSION 30 ML CUP PO PRN (22:02)
[2024-11-13] MEDS ORDERED: BENZOCAINE/MENTHOL (CHLORASEPTIC ) LOZENGE MM PRN (22:02)
[2024-11-13] MEDS ORDERED: guaiFENesin 600 MG TABLET.ER (FP) PO PRN (22:02)
[2024-11-13] MEDS ORDERED: BENZONATATE 200 MG CAPSULE PO PRN (22:02)
[2024-11-13] MEDS ORDERED: MAG HYDROX/AL HYDROX/SIMETH 30 ML UNIT-DOSE CUP PO PRN (22:02)
[2024-11-14] MEDS ORDERED: diazePAM 5 MG TABLET ONE (00:46)
[2024-11-14] MEDS ORDERED: levETIRAcetam 500 MG TABLET (FP) PO ONE (00:46)
[2024-11-14] MEDS: diazePAM 5 MG TABLET PO SCH (00:47)
[2024-11-14] MEDS: levETIRAcetam 500 MG TABLET (FP) PO SCH (00:47)
[2024-11-14] MEDS: INSULIN ASPART SLIDING SCALE (NOVOLOG) 1 VIAL SQ SCH (00:57)
[2024-11-14] MEDS: PRENATAL VITAMINS W/ FOLIC ACID TABLET (FP) PO SCH (09:38)
[2024-11-14 11:00] LABS: HEMATOCRIT 42.7 % (40.1-51.0); HEMOGLOBIN 13.8 g/dL (13.7-17.5); MCHC 32.3 g/dl (32.3-36.5); MEAN CELL VOLUME 94.7 fl (79.0-92.2); MEAN PLT VOLUME 11.1 fl (9.4-12.4); PLATELET COUNT 255 x10^3/uL (163-337); RDW 14.4 % (12.0-15.6)
[2024-11-14 11:16] LABS: POTASSIUM 3.9 mmol/L (3.5-5.1)
[2024-11-14 11:58] LABS: BLOOD UREA NITROGEN 15.5 mg/dL (7-18); CALCIUM 9.6 mg/dL (8.5-10.1)
[2024-11-14 11:59] LABS: ALBUMIN 3.3 g/dl (3.4-5.0)
[2024-11-14 12:00] LABS: CREATININE 0.9 mg/dL (0.55-1.3)
[2024-11-14 12:02] LABS: TOT PROT 6.5 g/dl (6.4-8.2)
[2024-11-14 12:03] LABS: BILIRUBIN,TOTAL 0.2 mg/dL (0.2-1)
[2024-11-14] MEDS: THIAMINE 100 MG TABLET PO SCH (22:37)
[2024-11-14] MEDS: MELATONIN 5 MG TABLETS PO SCH (22:39)
[2024-11-15 00:01] LABS: URINE APPEARANCE Error; URINE BILIRUBIN NEGATIVE (NEGATIVE); URINE COLOR YELLOW; URINE GLUCOSE (UA) NEGATIVE (NEGATIVE); URINE KETONE NEGATIVE (NEGATIVE); URINE LEUK ESTERASE NEGATIVE (NEGATIVE); URINE NITRITE NEGATIVE (NEGATIVE); URINE PROTEIN NEGATIVE (NEGATIVE); URINE UROBILINOGEN 0.2 mg/dL (0.2-1.0)
[2024-11-15] MEDS: diazePAM 5 MG TABLET PO SCH (05:47)
[2024-11-15 10:09] LABS: POTASSIUM 4.4 mmol/L (3.5-5.1)
[2024-11-15 10:15] LABS: CALCIUM 9.8 mg/dL (8.5-10.1)
[2024-11-15 10:16] LABS: BLOOD UREA NITROGEN 9.1 mg/dL (7-18)
[2024-11-15 10:19] LABS: CREATININE 0.7 mg/dL (0.55-1.3)
[2024-11-16] MEDS: diazePAM 5 MG TABLET PO SCH (05:48)
[2024-11-16] MEDS: diazePAM 5 MG TABLET PO PRN (21:46)
[2024-11-17] MEDS: METHOCARBAMOL 500 MG TABLET PO PRN (01:12)
[2024-11-17] MEDS: diazePAM 5 MG TABLET PO ONE (06:06)
[2024-11-17 06:43] VITALS: RESP 16; TEMP 97.6
[2024-11-17 08:49] VITALS: BP 143/79; PULSE 94
[2024-11-17] MEDS ORDERED: ALBUTEROL SO4 HFA INHALER IH PRN (09:35)
[2024-11-17] MEDS ORDERED: levETIRAcetam 500 MG TABLET (FP) PO SCH (10:00)
== END 2024-11-17 10:12 | disposition home or self-care (01) | DRG 775 ==
LOC: YASAS 20:27 → Y6N 23:36
PROVIDERS: ADMIT Allergy & Immunology; ATTEND Allergy & Immunology
PROC: HZ2ZZZZ Detoxification Services for Substance Abuse Treatment (ICD-10-PCS; principal; 2024-11-13)
DX: F10.230 Alcohol dependence with withdrawal, uncomplicated (principal); F12.20 Cannabis dependence, uncomplicated; F17.210 Nicotine dependence, cigarettes, uncomplicated; F19.282 Other psychoactive substance dependence with psychoactive substance-induced sleep disorder; F31.9 Bipolar disorder, unspecified; F43.10 Post-traumatic stress disorder, unspecified; G40.909 Epilepsy, unspecified, not intractable, without status epilepticus; I10 Essential (primary) hypertension; J45.20 Mild intermittent asthma, uncomplicated; K21.9 Gastro-esophageal reflux disease without esophagitis; E11.9 Type 2 diabetes mellitus without complications; Z79.4 Long term (current) use of insulin
CPT/HCPCS: 0241U-QW; 36415; 71046-TC-FY; 80048; 80053; 81003; 82962; 85027; 86780; 93005; 93010